=== PATIENT | female | born 1955 | race Caucasian/White ===

== ENCOUNTER → 2017-02-11 | Outpatient (CLI) | payer MEDICARE ==
[2017-02-11 12:17] LABS: Basophils % (A) 0 %; CH 24.5; CHCM 29.6; Eosinophils # (A) 0.1 k/uL (0-0.7); Eosinophils % (A) 2 %; HCT 34.7 % (34.0-46.0); HDW 2.99; HGB 10.6 gm/dL (11.4-16.0); Hypochromasia Marked; Luc # (Auto) 0.13; Luc % (Auto) 2; Lymphocytes # (A) 1.5 k/uL (1.0-4.8); Lymphocytes % (A) 21 %; MCH 25.4 pg (25.0-35.0); MCHC 30.5 g/dL (31.0-37.0); MCV 83.2 fL (80.0-100.0); Mean Platelet Volume 7.1; Monocytes # (A) 0.4 k/uL (0-1.0); Monocytes % (A) 5 %; Neutrophils # (A) 4.9 k/uL (1.3-7.7); Neutrophils % (A) 70 %; RBC 4.17 m/uL (3.80-5.40); RDW 15.5 % (11.5-15.5); WBC (Perox) 7.43
[2017-02-11 12:29] LABS: ALT 55 U/L (9-52); AST 70 U/L (14-36); Alkaline Phosphatase 158 U/L (38-126); Anion Gap 9 mmol/L; Blood Urea Nitrogen 15 mg/dL (7-17); Carbon Dioxide 31 mmol/L (22-30); Chloride 101 mmol/L (98-107); Cholesterol 97 mg/dL (<200); Glucose 87 mg/dL (74-99); HDL Cholesterol 40 mg/dL (40-60); Non-African American GFR(MDRD) >60 (>60 ml/min/1.73 sqM); Potassium 4.5 mmol/L (3.5-5.1); Sodium 141 mmol/L (137-145); Total Bilirubin 0.4 mg/dL (0.2-1.3); Total Protein 6.2 g/dL (6.3-8.2); Triglycerides 87 mg/dL (<150)
[2017-02-11 12:53] LABS: Large Platelets Present; Manual Review Performed
[2017-02-11 13:16] LABS: Hemoglobin A1C 5.8 % (4.2-6.1)
== END | disposition home or self-care (01) ==
LOC: LABWHC1 11:21
PROVIDERS: ATTEND Pain Medicine Pain Medicine
DX: Z00.00 Encounter for general adult medical examination without abnormal findings (principal); E11.65 Type 2 diabetes mellitus with hyperglycemia; K71.6 Toxic liver disease with hepatitis, not elsewhere classified
CPT/HCPCS: 36415; 80053; 80061; 83036; 84439; 84443; 85025

== ENCOUNTER → 2017-03-09 | Outpatient (CLI) | payer MEDICARE ==
[2017-03-09 12:03] LABS: % Iron Saturation 5.8 % (20-50)
== END | disposition home or self-care (01) ==
LOC: LABWHC1 08:59
PROVIDERS: ATTEND Family Medicine
DX: R74.8 Abnormal levels of other serum enzymes (principal); D64.9 Anemia, unspecified
CPT/HCPCS: 36415; 83540; 83550; 84075; 84450; 84460

== ENCOUNTER → 2017-03-23 | Outpatient (CLI) | payer MEDICARE ==
[2017-03-23 16:23] LABS: C Reactive Protein 39.1 mg/L (<10.0); Rheumatoid Factor, Qnt <9 IU/mL (<12)
[2017-03-24 07:17] LABS: ANA w/Reflex to Titer POSITIVE (NEGATIVE)
[2017-03-24 09:08] LABS: HLA B27 NEGATIVE; HLA B27 Comment SEEBELOW
== END ==
LOC: LABWHC1 15:32
PROVIDERS: ATTEND Pain Medicine Pain Medicine
DX: M35.9 Systemic involvement of connective tissue, unspecified (principal)
CPT/HCPCS: 36415; 85652; 86038; 86039; 86140; 86376; 86431; 86812

== ENCOUNTER → 2017-03-23 | Outpatient (CLI) | payer MEDICARE ==
--- NOTE | 2017-03-23 17:46 | US ---
EXAMINATION TYPE: US liver DATE OF EXAM: 03/23/2017 COMPARISON: CLINICAL HISTORY: R74.8 Elevated liver enzymes level. Bariatric surgery x 10 years ago. GB removed i n 1992. NPO EXAM MEASUREMENTS: Liver Length: 23.6 cm CBD: 0.8 cm CHD: 0.6 cm Right Kidney: 11.9 x 5.2 x 4.4 cm cm Pancreas: Tail obscured by overlying bowel gas. Echogenic. WNL as visualized. Liver: Echogenic. Enlarged. No prominent masses or lesions seen. Gallbladder: Surgically absent CBD: wnl CHD: wnl Right Kidney: multiple prominent echogenic lesions, largest seen in upper pole = 1.1 x 0.9 cm IMPRESSION: 1. Correlate for Fatty hepatic infiltration versus diffuse hepatocellular disease.
== END | disposition home or self-care (01) ==
LOC: RADUSWWP 15:50
PROVIDERS: ATTEND Family Medicine
DX: R74.8 Abnormal levels of other serum enzymes (principal)
CPT/HCPCS: 76705

== ENCOUNTER → 2017-03-29 | Outpatient (CLI) | payer MEDICARE ==
--- NOTE | 2017-03-30 09:49 | MM ---
Reason for exam: screening (asymptomatic). Last mammogram was performed 1 year and 2 months ago. History: Patient is postmenopausal. Benign core biopsy of the left breast, 1991. Took estrogen for 2 years. Physical Findings: A clinical breast exam by your physician is recommended on an annual basis and results should be correlated with mammographic findings. MG 3D Screening Mammo W/Cad Bilateral CC and MLO view(s) were taken. Prior study comparison: January 14, 2016, bilateral MG screening mammo w CAD. January 10, 2015, bilateral MG screening mammo w CAD. There are scattered fibroglandular densities. There is no discrete abnormality. No significant changes when compared with prior studies. ASSESSMENT: Negative, BI-RAD 1 RECOMMENDATION: Routine screening mammogram of both breasts in 1 year.
== END | disposition home or self-care (01) ==
LOC: RADMAMWWP 16:00
PROVIDERS: ATTEND Family Medicine
DX: Z12.31 Encounter for screening mammogram for malignant neoplasm of breast (principal)
CPT/HCPCS: 77063; G0202

== ENCOUNTER 2017-06-09 10:56 | Day surgery (SDC) | payer MEDICARE ==
[2017-06-07 11:39] VITALS: BMI 46.3
[~2017-06-09 10:56] MED LIST: LACTATED RINGERS 1,000 ML IV SCH
[2017-06-09] MEDS ORDERED: LIDOCAINE 1% 20 ML VIAL (10MG/ML) FOR IV START INTRADERMA ONE (11:12)
[2017-06-09] MEDS ORDERED: LACTATED RINGERS 1,000 ML IV ONE (11:12)
[2017-06-09 11:27] VITALS: TEMP 98
[2017-06-09] MEDS ORDERED: PROPOFOL 10 MG/ML 20 ML VIAL IV ONE (12:06)
[2017-06-09] MEDS ORDERED: LIDOCAINE 1% INJ 10MG/ML (20 ML MDV) ONE (12:06)
--- NOTE | 2017-06-09 13:02 | P.PCN ---
Date of Procedure: 06/09/17 Preoperative Diagnosis: Postoperative Diagnosis: Procedure(s) Performed: Procedure: 1. Esophagogastroduodenoscopy and biopsy. 2. Total colonoscopy. Preoperative diagnosis: Anemia and unexplained weight loss. Postoperative diagnosis: 1. S/P gastric bypass surgery. 2. Colonoscopy within normal limits. Preparation: HalfLytely prep. Sedation: Was provided by anesthesia. Brief clinical history: The patient is a 58-year-old female who is referred for this evaluation because of anemia consistent with iron deficiency. The patient had prior gastric bypass surgery. She had a prior colonoscopy with Dr. Rodgers more than 10 years ago. Procedure: With the patient on her left lateral decubitus position and after informed consent and adequate sedation I passed the Olympus GIF 160 video upper endoscope through the cricopharyngeus down the esophagus. The esophagus did not show any obvious erosions or ulcers. GE junction was at around 36 cm from the incisors and there was a small hiatal hernia then the endoscope was advanced into the gastric remnant. The patient had prior gastric bypass surgery. The endoscope was then passed into the small intestine. There were no marginal ulcers or other pathology in the gastric pouch. The small intestine was inspected for a good distance. No obvious pathology was noted. I obtained multiple biopsies from the small intestine in addition to biopsies from the gastric remnant and esophagus before the endoscope was withdrawn. I then proceeded with the colonoscopy. Perianal area did not show any fissures or fistulas. There were no masses felt on digital rectal examination. The Olympus PCFQ 180AL video colonoscope was used and was advanced to the cecum. No polyps, tumors or obvious diverticular disease was noted. The mucosa appeared healthy. I retroflexed the endoscope in the rectum before the endoscope was withdrawn. Low-grade internal hemorrhoids without definite bleeding. Disposition: The patient tolerated the procedure well and did not seem to have any immediate complications. Plan: We will await the biopsy results. It is possible that her anemia is nutritional related to her gastric bypass surgery, other etiology to be kept in mind.. Implants: Indications for Procedure: Operative Findings: Description of Procedure:
[2017-06-09] MEDS ORDERED: ONDANSETRON ODT 4 MG TAB PO STA (13:28)
[2017-06-09 13:53] VITALS: RESP 20
[2017-06-09 14:47] VITALS: BP 128/72; PULSE 96
--- NOTE | 2017-06-09 14:54 | XR ---
EXAMINATION TYPE: XR abdomen complete w decub DATE OF EXAM: 06/09/2017 COMPARISON: 04/03/2014 HISTORY: 61-year-old female rule out perforation, recent endoscopy with pain. TECHNIQUE: Supine, upright, and left side down lateral decubitus views of the abdomen are obtained. FINDINGS: Lung bases are clear. No evidence for free intraperitoneal air. Prominent air-filled small and large bowel loops with air extending distally into the rectum. Staple lines seen within the epigastric region and left mid abdomen suggest prior bowel surgery. Surgical cl ips in the right upper quadrant as well. IMPRESSION: Prominent air distended bowel loops throughout involving both small and large bowel. Findings could r eflect air introduced secondary to the patient's procedure or could represent ileus. No free air.
== END 2017-06-09 15:08 | disposition home or self-care (01) ==
LOC: ORWHC2ENDO 10:56
DX: D50.9 Iron deficiency anemia, unspecified (principal); K29.50 Unspecified chronic gastritis without bleeding; K21.0 Gastro-esophageal reflux disease with esophagitis; R63.4 Abnormal weight loss; J45.909 Unspecified asthma, uncomplicated; G47.33 Obstructive sleep apnea (adult) (pediatric); M79.7 Fibromyalgia; K64.8 Other hemorrhoids; G43.909 Migraine, unspecified, not intractable, without status migrainosus; Z98.84 Bariatric surgery status; K44.9 Diaphragmatic hernia without obstruction or gangrene; E07.9 Disorder of thyroid, unspecified; Z88.0 Allergy status to penicillin; Z79.84 Long term (current) use of oral hypoglycemic drugs; Z79.891 Long term (current) use of opiate analgesic; Z79.899 Other long term (current) drug therapy
CPT/HCPCS: 88305; 88342; 74020; 45378; 43239; J2001; J2704

== ENCOUNTER 2017-09-19 23:50 | Emergency (ER) | payer MEDICARE, OTHER ==
--- NOTE | 2017-09-20 | ED ---
Fall HPI - General Stated Complaint: Fall Time Seen by Provider: 09/19/17 23:50 Source: patient, EMS, RN notes reviewed, old records reviewed - History of Present Illness Initial Comments: This is a 61-year-old female history of bilateral knee surgery fibromyalgia and morbid obesity who apparently fell in the bathroom just prior to admission she hit either a door door jamb with the left side of her head she complains of pain to the back of her head no overt neck pain but she is complaining of severe pain to the left knee she states radiates from her left ankle up to her hip. She does have a history of sciatica and believes that got exacerbated. She denies any overt back pain at this time. Patient was given 100 g of fentanyl by paramedics in route to. She states the pain is still 10/10 severity. She does state because her fibromyalgia anywhere that I touch will hurt. She has a blurry vision loss of function to her upper or lower extremities just the severe pain. MD Complaint: fall - Related Data Home Medications Medication Instructions Recorded Confirmed Furosemide [Lasix] 40 mg PO DAILY 04/03/14 06/07/17 Levothyroxine Sodium [Synthroid] 75 mcg PO DAILY 04/03/14 06/07/17 Morphine Sulfate ER [Ms Contin] 30 mg PO BID 04/03/14 06/07/17 Venlafaxine HCl [Effexor] 75 mg PO BID 04/03/14 06/07/17 tiZANidine [Zanaflex] 4 mg PO TID PRN 04/03/14 06/07/17 Albuterol Sulfate [Ventolin HFA] 2 puff INHALATION DIRECTED PRN 07/24/14 Amitriptyline HCl [Elavil] 75 mg PO HS 06/07/17 06/07/17 Cyclobenzaprine [Flexeril] 10 mg PO BID 06/07/17 06/07/17 Gabapentin 800 mg PO TID 06/07/17 06/07/17 Hydrocodone/Acetaminophen [Vicodin 1 tab PO Q6HR 06/07/17 06/07/17 Hp 10-300 mg Tablet] Miralax(Dose Unknown) 1 applicate PO DAILY 06/07/17 06/07/17 Montelukast [Singulair] 10 mg PO HS 06/07/17 06/07/17 Omeprazole [PriLOSEC] 20 mg PO AC-BRKFST 06/07/17 06/07/17 Pilocarpine HCl [Salagen] 7.5 mg PO BID 06/07/17 06/07/17 metFORMIN HCL [Glucophage] 500 mg PO BID 06/07/17 06/07/17 Previous Rx's Medication Instructions Recorded Lactulose [Cephulac] 30 gm PO TID 30 Days cup 04/05/14 Allergies Allergy/AdvReac Type Severity Reaction Status Date / Time Penicillins Allergy Unknown Verified 09/20/17 00:00 Childhood Review of Systems ROS Statement: Those systems with pertinent positive or pertinent negative responses have been documented in the HPI. ROS Other: All systems not noted in ROS Statement are negative. Past Medical History Past Medical History: Asthma, Fibromyalgia, GERD/Reflux, Osteoarthritis (OA), Pneumonia, Rheumatoid Arthritis (RA), Sleep Apnea/CPAP/BIPAP, Thyroid Disorder Additional Past Medical History / Comment(s): NO LONGER HAS CPAP, ANEMIA, KIDNEY STONE, MIGRAINES, CHRONIC CONSTIPATION, hernia, tested positive for lupus , lesion on rt kidney, pt states not diabetic History of Any Multi-Drug Resistant Organisms: None Reported Past Surgical History: Bariatric Surgery, Breast Surgery, Section, Cholecystectomy, Hysterectomy, Joint Replacement, Orthopedic Surgery, Uterine Ablation Additional Past Surgical History / Comment(s): RT PARTIAL MASTECTOMY, LT WRIST HAS PLATE/SCREWS, venice KNEE REPLACEMENT, HEMORROIDECTOMY, ROEX-N-Y, hemorrhoidectomy, cystoscopy removal of kidney stone, arthroscopy left knee Past Anesthesia/Blood Transfusion Reactions: Previous Problems w/ Anesthesia Additional Past Anesthesia/Blood Transfusion Reaction / Comment(s): STATES HAD ISSUE POST OP R/T SLEEP APNEA WHERE O2 LEVEL WAS LOW, AND WAS IN ICU Smoking Status: Former smoker - Past Family History Mother Family Medical History: Cancer Additional Family Medical History / Comment(s): UTERINE General Exam - General Exam Comments Initial Comments: This is a well-developed well-nourished awake alert oriented 3 female Limitations: physical limitation General appearance: alert, anxious, in distress Head exam: Present: normocephalic, other (Small contusion over the left occipital scalp no step-off or crepitation.) Eye exam: Present: normal appearance, PERRL, EOMI. Absent: scleral icterus, conjunctival injection, periorbital swelling ENT exam: Present: normal exam, mucous membranes moist Neck exam: Present: normal inspection, other (C-collar is in place). Absent: lymphadenopathy Respiratory exam: Present: normal lung sounds bilaterally. Absent: respiratory distress, wheezes, rales, rhonchi, stridor Cardiovascular Exam: Present: regular rate, normal rhythm, normal heart sounds. Absent: systolic murmur, diastolic murmur, rubs, gallop, clicks GI/Abdominal exam: Present: soft, normal bowel sounds, other (Obese abdomen). Absent: distended, tenderness, guarding, rebound, rigid Rectal exam: Present: deferred Extremities exam: Present: tenderness, normal capillary refill, other (Tennis palpation of the left knee no obvious shortening or rotation. Some mild tenderness over left hip also over the left femur and left tib-fib. No ankle or foot tenderness on the left. No other extremity injury noted.) Course Vital Signs 09/19/17 09/20/17 09/20/17 23:51 00:56 01:38 Temperature 97.5 F L Pulse Rate 95 87 89 Respiratory 22 18 20 Rate Blood Pressure 114/59 132/67 O2 Sat by Pulse 100 100 100 Oximetry 09/20/17 09/20/17 09/20/17 01:46 01:51 01:56 Temperature Pulse Rate 92 88 86 Respiratory 20 17 18 Rate Blood Pressure 142/66 147/67 156/67 O2 Sat by Pulse 99 100 100 Oximetry 09/20/17 09/20/17 02:01 02:06 Temperature Pulse Rate 93 93 Respiratory 20 20 Rate Blood Pressure 147/71 140/68 O2 Sat by Pulse 100 100 Oximetry - Reevaluation(s) Reevaluation #1: 09/20/17 01:34 I did discuss the case with Dr. Young who did recommend transferred to [facility] to the patient's original surgeon. Patient is in agreement with this after discussion with her and her family. The patient will require stabilization of the fracture she is 89 much pain relief thus far after fentanyl and IV Dilaudid. He does appear in the lateral film to demonstrate posterior displacement of the distal fragment of the femur. I will attempt to realign this with IV sedation. The lower sternal he will then be splinted. Reevaluation #2: 09/20/17 03:14 The patient initially was confused as to which hospital she was operated and originally for her knee surgery. I did contact her surgeon Dr. Adria Hightower and did discuss this with him initially the patient was be transferred to [facility] foot was subsequently transferred to [facility]. I did discuss this with her orthopedist on several occasions also did discuss this with Dr. Weiss at [facility]. The patient will be transferred by EMS. I did discuss this with the patient and her . Procedures - Orthopedic Splinting/Casting Injury #1 Side: left Lower Extremity Injury Location: long leg, knee Lower Extremity Immobilizer: posterior splint Additional Comments: Anterior and posterior long leg splint 5 x 30 orthopedic casting fiberglass. It was good neurovascular exam afterwards. Capillary refill less than 2 seconds. No neuro deficits. - Procedural Sedation Procedural Sedation Start Time: 01:47 ASA Class: III Time of Last PO Intake: 20:00 IV Propofol Dose (mgs): 140 Complications: none Patient Tolerated Procedure: well Medical Decision Making - Medical Decision Making The patient was transferred to [facility] she is awake alert oriented 3. - Lab Data Result diagrams: 09/19/17 23:58 09/19/17 23:58 Lab Results 09/19/17 09/19/17 09/19/17 Range/Units 23:58 23:58 23:58 WBC 7.0 (3.8-10.6) k/uL RBC 4.04 (3.80-5.40) m/uL Hgb 8.3 L (11.4-16.0) gm/dL Hct 29.5 L (34.0-46.0) % MCV 73.2 L (80.0-100.0) fL MCH 20.5 L (25.0-35.0) pg MCHC 28.1 L (31.0-37.0) g/dL RDW 19.7 H (11.5-15.5) % Plt Count 279 (150-450) k/uL Neutrophils % 70 % Lymphocytes % 21 % Monocytes % 5 % Eosinophils % 3 % Basophils % 0 % Neutrophils # 4.9 (1.3-7.7) k/uL Lymphocytes # 1.5 (1.0-4.8) k/uL Monocytes # 0.4 (0-1.0) k/uL Eosinophils # 0.2 (0-0.7) k/uL Basophils # 0.0 (0-0.2) k/uL Hypochromasia Marked Anisocytosis Slight Microcytosis Moderate PT 10.0 (9.0-12.0) sec INR 1.0 (<1.2) APTT 26.7 (22.0-30.0) sec Sodium 135 L (137-145) mmol/L Potassium 4.2 (3.5-5.1) mmol/L Chloride 97 L (98-107) mmol/L Carbon Dioxide 31 H (22-30) mmol/L Anion Gap 7 mmol/L BUN 15 (7-17) mg/dL Creatinine 0.90 (0.52-1.04) mg/dL Est GFR (MDRD) Af Amer >60 (>60 ml/min/1.73 sqM) Est GFR (MDRD) Non-Af >60 (>60 ml/min/1.73 sqM) Glucose 104 H (74-99) mg/dL Calcium 9.0 (8.4-10.2) mg/dL - Radiology Data Radiology results: report reviewed (I did review all the imaging and reports there is some improvement in the position of the distal femur and fibula. There were fractures noted at both sites as stated above.), image reviewed Disposition Clinical Impression: Fall, Fracture of distal end of left femur, Fracture of proximal end of left fibula Disposition: OTHER INSTITUTION NOT DEFINED Condition: Stable Referrals: Katelyn Rai MD [Primary Care Provider] - 1-2 days - Out of Hospital Transfer - Req. Specs Out of Hospital Transfer - Requested Specifics: Other Emergency Center
--- NOTE | 2017-09-20 00:36 | CT ---
EXAMINATION TYPE: CT brain shaun webster DATE OF EXAM: 09/20/2017 COMPARISON: NONE HISTORY: fall. evaluate for trauma CT DLP: head-1098.80, body-566.40 mGycm Automated exposure control for dose reduction was used. TECHNIQUE: CT scan of the head and cervical spine are performed without contrast. FINDINGS: Ventricles have normal size. There is no mass effect nor midline shift. There is no sign of intracranial hemorrhage. The calvarium is intact. There is some mild mucosal thickening in the eth moid sinuses. Cervical vertebra have normal alignment. There is some hypertrophic spurring at C5-6 and C6-7. Engine Tester ior elements are intact. Facet joints are intact. The skull base is intact. There is no sign of a fra cture. IMPRESSION: Negative CT scan of the brain. Mild ethmoid sinusitis. Mild spondylosis in the lower cervical spine. No fracture.
--- NOTE | 2017-09-20 01:04 | XR ---
EXAMINATION TYPE: XR pelvis AP view DATE OF EXAM: 09/20/2017 COMPARISON: NONE HISTORY: Fall. Pain. TECHNIQUE: Single view FINDINGS: Pelvic ring appears intact. Proximal femurs are intact. I see no fracture. IMPRESSION: No acute abnormality of the pelvis.
--- NOTE | 2017-09-20 01:05 | XR ---
EXAMINATION TYPE: XR femur LT DATE OF EXAM: 09/20/2017 COMPARISON: NONE HISTORY: Fall with pain TECHNIQUE: 4 views FINDINGS: There is a supracondylar fracture of the distal femur with 100% offset of the fragments. Th ere is no dislocation. There is a left knee prosthesis. The proximal femur appears intact. IMPRESSION: Comminuted supracondylar fracture of the distal femur.
--- NOTE | 2017-09-20 01:06 | XR ---
EXAMINATION TYPE: XR knee limited LT DATE OF EXAM: 09/20/2017 COMPARISON: NONE HISTORY: Fall with pain TECHNIQUE: 2 views FINDINGS: There is comminuted supracondylar fracture of the distal femur. There is 100% lateral displ acement of the distal major fragment. There is nondisplaced comminuted fracture of the proximal shaft of the fibula. There is no dislocation. IMPRESSION: Fractures of the distal femur and proximal fibula.
--- NOTE | 2017-09-20 01:08 | XR ---
EXAMINATION TYPE: XR chest 1V DATE OF EXAM: 09/20/2017 COMPARISON: 10/02/2014 HISTORY: Fall. Pain. TECHNIQUE: Single frontal view of the chest is obtained. FINDINGS: There is some widening of the mediastinum. Exam is limited by positioning. There is no hea rt failure. There is no sign of pleural effusion. IMPRESSION: Widened mediastinum. A PA upright view is recommended for further evaluation if clinical ly indicated. No heart failure.
[2017-09-20] MEDS ORDERED: HYDROmorphone 2 MG/ML 1 ML SYRINGE IVP STA ×2 (01:10→03:04)
[2017-09-20] MEDS ORDERED: PROPOFOL 10 MG/ML 20 ML VIAL IV ONE (01:28)
--- NOTE | 2017-09-20 01:33 | XR ---
EXAMINATION TYPE: XR tibia fibula LT DATE OF EXAM: 09/20/2017 COMPARISON: NONE HISTORY: Fall and pain TECHNIQUE: 4 views FINDINGS: There is nondisplaced comminuted fracture proximal shaft of the fibula. There is acute comm inuted supracondylar fracture distal femur. The ankle joint appears intact. There are plantar and Ach illes calcaneal spurs. IMPRESSION: Fractures of the fibula and distal femur. No dislocation. Left knee prosthesis.
[2017-09-20 01:34] LABS: Anisocytosis Slight; Basophils % (A) 0 %; Eosinophils # (A) 0.2 k/uL (0-0.7); Eosinophils % (A) 3 %; HCT 29.5 % (34.0-46.0); HGB 8.3 gm/dL (11.4-16.0); Hypochromasia Marked; Lymphocytes # (A) 1.5 k/uL (1.0-4.8); Lymphocytes % (A) 21 %; MCH 20.5 pg (25.0-35.0); MCHC 28.1 g/dL (31.0-37.0); MCV 73.2 fL (80.0-100.0); Mean Platelet Volume 7.7; Microcytosis Moderate; Monocytes # (A) 0.4 k/uL (0-1.0); Monocytes % (A) 5 %; Neutrophils # (A) 4.9 k/uL (1.3-7.7); Neutrophils % (A) 70 %; Platelet Count 279 k/uL (150-450); RBC 4.04 m/uL (3.80-5.40); RDW 19.7 % (11.5-15.5)
[2017-09-20 01:42] LABS: Partial Thromboplastin Time 26.7 sec (22.0-30.0)
[2017-09-20 01:43] LABS: Anion Gap 7 mmol/L; Blood Urea Nitrogen 15 mg/dL (7-17); Carbon Dioxide 31 mmol/L (22-30); Chloride 97 mmol/L (98-107); Glucose 104 mg/dL (74-99); Potassium 4.2 mmol/L (3.5-5.1); Sodium 135 mmol/L (137-145)
[2017-09-20] MEDS ORDERED: HYDROmorphone 0.5 MG/0.5 ML SYRINGE IVP STA (02:04)
[2017-09-20] MEDS ORDERED: HYDROmorphone 1 MG/ML 1 ML SYRINGE IVP STA ×2 (02:13→03:02)
--- NOTE | 2017-09-20 02:26 | XR ---
EXAMINATION TYPE: XR knee limited LT DATE OF EXAM: 09/20/2017 COMPARISON: Today HISTORY: Postreduction TECHNIQUE: 2 views FINDINGS: There is supracondylar fracture of the distal femur. There is comminution with 2.5 cm posterior disp lacement of the distal fragment. There is normal alignment. There is comminuted fracture proximal sha ft of the fibula. There is slightly improved position of the femoral fragments compared to previous e xam. IMPRESSION: Improved position compared to previous exam.
[2017-09-20 03:32] VITALS: BP 132/62; PULSE 98; RESP 22; TEMP 98.5
--- NOTE | 2017-09-21 03:51 | CDI ---
Documentation Clarification OP Dear Patrick FLORES MD As reviewed the chart, Procedure stop time is missing, Please provide addendum for procedure stop time to code the moderate sedation. Thank you, Chrissy Francisco Traffic Control Supervisor If you have any question, Please contact plant culture manager at [phone] [facility]
--- NOTE | 2017-10-28 08:14 | ED ---
Medical Decision Making - Medical Decision Making Procedural sedation stop time was 02:10 am. - Lab Data Result diagrams: 09/19/17 23:58 09/19/17 23:58 Lab Results 09/19/17 09/19/17 09/19/17 Range/Units 23:58 23:58 23:58 WBC 7.0 (3.8-10.6) k/uL RBC 4.04 (3.80-5.40) m/uL Hgb 8.3 L (11.4-16.0) gm/dL Hct 29.5 L (34.0-46.0) % MCV 73.2 L (80.0-100.0) fL MCH 20.5 L (25.0-35.0) pg MCHC 28.1 L (31.0-37.0) g/dL RDW 19.7 H (11.5-15.5) % Plt Count 279 (150-450) k/uL Neutrophils % 70 % Lymphocytes % 21 % Monocytes % 5 % Eosinophils % 3 % Basophils % 0 % Neutrophils # 4.9 (1.3-7.7) k/uL Lymphocytes # 1.5 (1.0-4.8) k/uL Monocytes # 0.4 (0-1.0) k/uL Eosinophils # 0.2 (0-0.7) k/uL Basophils # 0.0 (0-0.2) k/uL Hypochromasia Marked Anisocytosis Slight Microcytosis Moderate PT 10.0 (9.0-12.0) sec INR 1.0 (<1.2) APTT 26.7 (22.0-30.0) sec Sodium 135 L (137-145) mmol/L Potassium 4.2 (3.5-5.1) mmol/L Chloride 97 L (98-107) mmol/L Carbon Dioxide 31 H (22-30) mmol/L Anion Gap 7 mmol/L BUN 15 (7-17) mg/dL Creatinine 0.90 (0.52-1.04) mg/dL Est GFR (MDRD) Af Amer >60 (>60 ml/min/1.73 sqM) Est GFR (MDRD) Non-Af >60 (>60 ml/min/1.73 sqM) Glucose 104 H (74-99) mg/dL Calcium 9.0 (8.4-10.2) mg/dL Disposition Clinical Impression: Fall, Fracture of distal end of left femur, Fracture of proximal end of left fibula Disposition: TRANSFER TO SHORT TERM HOSP Condition: Stable Referrals: Katelyn Rai MD [Primary Care Provider] - 1-2 days
== END 2017-09-20 03:56 | disposition short-term general hospital (02) ==
LOC: EC 23:50
DX: S72.402A Unspecified fracture of lower end of left femur, initial encounter for closed fracture (principal); S82.832A Other fracture of upper and lower end of left fibula, initial encounter for closed fracture; K21.9 Gastro-esophageal reflux disease without esophagitis; M79.7 Fibromyalgia; M19.90 Unspecified osteoarthritis, unspecified site; M06.9 Rheumatoid arthritis, unspecified; G47.30 Sleep apnea, unspecified; Z99.89 Dependence on other enabling machines and devices; E07.9 Disorder of thyroid, unspecified; E66.01 Morbid (severe) obesity due to excess calories; Z68.42 Body mass index [BMI] 45.0-49.9, adult; Z79.84 Long term (current) use of oral hypoglycemic drugs; Z79.891 Long term (current) use of opiate analgesic; Z79.899 Other long term (current) drug therapy; Z88.0 Allergy status to penicillin; Z98.890 Other specified postprocedural states; W01.10XA Fall on same level from slipping, tripping and stumbling with subsequent striking against unspecified object, initial encounter; Y92.002 Bathroom of unspecified non-institutional (private) residence as the place of occurrence of the external cause
CPT/HCPCS: 99285; 29505; 99152; 36415; 80048; 85025; 85610; 85730; 71010; 72170; 73552; 73590; 73560; 72125; 70450; J1170 ×2; J2704

== ENCOUNTER → 2017-11-17 | Outpatient (CLI) | payer MEDICARE, OTHER ==
[2017-11-17 17:22] LABS: ALT 19 U/L (9-52); AST 25 U/L (14-36); Alkaline Phosphatase 129 U/L (38-126); Blood Urea Nitrogen 17 mg/dL (7-17)
== END | disposition home or self-care (01) ==
LOC: LABWHC1 15:51
PROVIDERS: ATTEND Pain Medicine Pain Medicine
DX: K71.9 Toxic liver disease, unspecified (principal); N14.2 Nephropathy induced by unspecified drug, medicament or biological substance
CPT/HCPCS: 36415; 82565; 84075; 84450; 84460; 84520

== ENCOUNTER → 2017-11-22 | Outpatient (CLI) | payer MEDICARE, OTHER ==
--- NOTE | 2017-11-22 08:54 | BD ---
EXAMINATION TYPE: MG DEXA axial skeleton. DATE OF EXAM: 11/22/2017 COMPARISON: DEXA bone scan June 13, 2015 CLINICAL HISTORY: screening osteoporosis, postmenopausal female with rheumatoid arthritis Height: 5'4 Weight: 272 FRAX RISK QUESTIONS: Alcohol (3 or more units per day): no Family History (Parent hip fracture): no Glucocorticoids (More than 3mos): no (Ex: prednisone, prednisolone, methylprednisolone, dexamethasone, and hydrocortisone). History of Fracture in Adulthood: yes Secondary Osteoporosis: 1. Type 1 Diabetes: no 2. Hyperthyroidism: no 3. Menopause before 45: yes 4. Malnutrition: yes 5. Chronic liver disease: no Rheumatoid Arthritis: yes Current Tobacco Use: no RISK FACTORS HISTORY OF: History of Wrist Fracture: left When: 2009 Surgery to Wrist (left): When: 2009 Family History of Osteoporosis: yes Active: no Diet low in dairy products/other sources of calcium: yes Postmenopausal woman: yes Frequent falls: yes Poor Health: yes MEDICATIONS: Thyroid Medications: Which medication: Levothyroxine How Lon years Additional Medications: Lasix, depression, morphine, Vicodin, flexeril, indigestion, Additional History: bariatric surgery, total knee venice, EXAM MEASUREMENTS: Bone mineral densitometry was performed using the [employer]ives[employer] System. Bone mineral density as measured about the Lumbar spine is: ----- L1-L4(G/cm2): 1.114 T Score Values are as follows: ----- L2: -0.8 ----- L3: -0.3 ----- L4: 0.5 ----- L1-L-4:-0.6 Bone mineral density has: Decreased -9.4% since study of: 06/13/2015 Bone mineral density about the R hip (g/cm2): 0.852 Bone mineral density about the L hip (g/cm2): 0.870 T Score values are as follows: -----R Neck: -1.3 -----L Neck: -1.2 -----R Total: -1.4 -----L Total: -1.6 Bone mineral density has: Decreased 15.8% left hip since study of: 06/13/2015 IMPRESSION: Osteopenia (T Score between -2.5 and -1 as noted by T score values redemonstrated in the right hip. B one density noted decreased or diminished from prior. There remains slightly increased risk of fractu re and the patient may be considered for treatment. Re-Screen 2-5 years. NOTE: T-SCORE=SD OF THE YOUNG ADULT MEAN.
== END | disposition home or self-care (01) ==
LOC: RADBDWWP 07:46
PROVIDERS: ATTEND Family Medicine
DX: M85.851 Other specified disorders of bone density and structure, right thigh (principal)
CPT/HCPCS: 77080

== ENCOUNTER → 2017-11-23 | Outpatient (CLI) | payer MEDICARE, OTHER ==
--- NOTE | 2017-11-23 08:55 | CT ---
EXAMINATION TYPE: CT abdomen wo/w con DATE OF EXAM: 11/23/2017 HISTORY: Abnormal levels of serum enzymes CT DLP: 2252mGycm Automated Exposure Control for Dose Reduction was Utilized. CONTRAST: CT scan of the abdomen is performed without oral and without and with IV Contrast, patient injected w ith 100 ml mL of Omnipaque 300. COMPARISON: CT abdomen and pelvis April 03, 2014 FINDINGS: LUNG BASES: No significant abnormality is appreciated. LIVER/GB: Noncontrast images show liver due to appear diffusely hypodense consistent with fatty infil tration. Cholecystectomy clips are redemonstrated. No suspicious intrahepatic solid or cystic mass is identified. No biliary ductal dilatation is seen. PANCREAS: There is fairly moderate fat replaced atrophy of pancreas redemonstrated. SPLEEN: Spleen is mildly enlarged at 13.1 cm on axial image 20 grafts mildly more prominent versus pr ior. ADRENALS: No significant abnormality is seen. KIDNEYS: There are 3-4 calculi scattered throughout right kidney with 15 mm upper pole calculus noted coronal image 91 series 9. There are 3-4 smaller calculi scattered throughout left kidney measuring 5 mm or smaller in size. There is symmetric cortical medullary uptake and excretion from both kidneys without evidence of concerning solid or cystic renal mass or hydronephrosis bilaterally. There is monahan bcentimeter low dense lesion anteriorly upper pole level left kidney seen image 31 series 11 is too s mall to further characterize but presumed benign. BOWEL: Surgical sutures from Jett fundoplication surgery are redemonstrated at level of diaphragmat ic hiatus. There is new or recurrent small hiatal hernia proximal to sutures versus focal dilatation of distal esophagus, former is favored. There is some focal small bowel prominence there are surgical sutures left upper to mid abdomen axial image 33. There is some prominence of fecal material through out the colon. LYMPH NODES: No greater than 1cm abdominal lymph nodes. Prominent but scattered subcentimeter mesente kari lymph nodes are noted. OSSEOUS STRUCTURES: There is advanced multilevel spurring in the thoracolumbar spine. There is exagge rated lumbar lordosis and straightening of the spine at thoracic levels. OTHER: Prior ventral wall hernia lower abdomen is felt outside field of view on today's study. IMPRESSION: 1. Marked fatty infiltration of liver. No worrisome intrahepatic mass or ductal dilatation. 2. Redemonstration of bilateral nephrolithiasis without hydronephrosis or obstructing stones. 3. Recurrent small hiatal hernia at level of Jett fundoplication surgery. Overall nonobstructive eugenio wel gas pattern. Mild to moderate diffuse colonic fecal stasis is felt present.
== END | disposition home or self-care (01) ==
LOC: RADCTMAIN 07:11
PROVIDERS: ATTEND Family Medicine
DX: K76.0 Fatty (change of) liver, not elsewhere classified (principal); N20.0 Calculus of kidney; K44.9 Diaphragmatic hernia without obstruction or gangrene; Z98.890 Other specified postprocedural states
CPT/HCPCS: 74170; Q9967

== ENCOUNTER 2018-06-13 21:59 | Inpatient (IN) | payer MEDICARE, OTHER ==
[2018-06-13] MEDS ORDERED: SODIUM CHLORIDE 0.9% 500 ML IV STA (22:28)
[2018-06-13 22:30] LABS: Glucose,Whole Blood 138 mg/dL (75-99)
[2018-06-13] MEDS ORDERED: SODIUM CHLORIDE 0.9% 500 ML IV ONE (22:40)
--- NOTE | 2018-06-13 22:44 | ED ---
General Adult HPI - General Chief complaint: Neuro Symptoms/Deficit Stated complaint: Poss stroke symtoms Time Seen by Provider: 06/13/18 22:18 Source: patient, family, RN notes reviewed, old records reviewed Mode of arrival: wheelchair Limitations: no limitations - History of Present Illness Initial comments: 62-year-old female presents for evaluation of confusion and slurred speech. Patient's symptoms began yesterday evening which was approximately 24 hours ago. According to her family she does have some confusion which is secondary to medication she is on from time to time. This is not atypical for the patient however she her symptoms have lasted longer than they normally would. Patient did complain of some abdominal pain and has had several episodes of nausea and vomiting. No history of diarrhea. No history of fever or chills. Patient is unable to contribute the the history secondary to confusion and altered mental status. - Related Data Home Medications Medication Instructions Recorded Confirmed Furosemide [Lasix] 40 mg PO DAILY 04/03/14 06/13/18 Levothyroxine Sodium [Synthroid] 75 mcg PO DAILY 04/03/14 06/13/18 Morphine Sulfate ER [Ms Contin] 30 mg PO BID 04/03/14 06/13/18 Venlafaxine HCl [Effexor] 75 mg PO BID 04/03/14 06/13/18 tiZANidine [Zanaflex] 4 mg PO TID PRN 04/03/14 06/13/18 Albuterol Sulfate [Ventolin HFA] 2 puff INHALATION RT-Q6H PRN 07/24/14 06/13/18 Amitriptyline HCl [Elavil] 75 mg PO HS 06/07/17 06/13/18 Cyclobenzaprine [Flexeril] 10 mg PO BID 06/07/17 06/13/18 Gabapentin 800 mg PO TID 06/07/17 06/13/18 Montelukast [Singulair] 10 mg PO HS 06/07/17 06/13/18 Pilocarpine HCl [Salagen] 7.5 mg PO BID 06/07/17 06/13/18 metFORMIN HCL [Glucophage] 500 mg PO BID 06/07/17 06/13/18 Cyanocobalamin [Vitamin B-12 1,000 mcg SQ Q30D 06/13/18 06/13/18 Injection] Fluticasone Nasal [place] [Flonase 2 spr EA NOSTRIL DAILY 06/13/18 06/13/18 Nasal [place]] HYDROcodone/APAP 10-325MG [[place] 1 tab PO Q6HR PRN 06/13/18 06/13/18 10-325] Nystatin 100,000 Unit/gm Powd 1 applic TOPICAL BID PRN 06/13/18 06/13/18 [Mycostatin Powder] hydrOXYzine PAMOATE [Vistaril] 25 mg PO TID 06/13/18 06/13/18 Allergies Allergy/AdvReac Type Severity Reaction Status Date / Time Penicillins Allergy Unknown Verified 06/13/18 22:52 Childhood Review of Systems ROS Statement: Those systems with pertinent positive or pertinent negative responses have been documented in the HPI. ROS Other: All systems not noted in ROS Statement are negative. Past Medical History Past Medical History: Asthma, Fibromyalgia, GERD/Reflux, Osteoarthritis (OA), Pneumonia, Rheumatoid Arthritis (RA), Sleep Apnea/CPAP/BIPAP, Thyroid Disorder Additional Past Medical History / Comment(s): NO LONGER HAS CPAP, ANEMIA, KIDNEY STONE, MIGRAINES, CHRONIC CONSTIPATION, hernia, tested positive for lupus , lesion on rt kidney, pt states not diabetic History of Any Multi-Drug Resistant Organisms: None Reported Past Surgical History: Bariatric Surgery, Breast Surgery, Section, Cholecystectomy, Hysterectomy, Joint Replacement, Orthopedic Surgery, Uterine Ablation Additional Past Surgical History / Comment(s): RT PARTIAL MASTECTOMY, LT WRIST HAS PLATE/SCREWS, venice KNEE REPLACEMENT, HEMORROIDECTOMY, ROEX-N-Y, hemorrhoidectomy, cystoscopy removal of kidney stone, arthroscopy left knee Past Anesthesia/Blood Transfusion Reactions: Previous Problems w/ Anesthesia Additional Past Anesthesia/Blood Transfusion Reaction / Comment(s): STATES HAD ISSUE POST OP R/T SLEEP APNEA WHERE O2 LEVEL WAS LOW, AND WAS IN ICU Past Psychological History: Depression Smoking Status: Former smoker Past Alcohol Use History: None Reported Past Drug Use History: None Reported - Past Family History Mother Family Medical History: Cancer Additional Family Medical History / Comment(s): UTERINE General Exam Limitations: no limitations General appearance: in no apparent distress, lethargic Head exam: Present: atraumatic, normocephalic Eye exam: Present: normal appearance, PERRL, EOMI ENT exam: Present: mucous membranes dry Neck exam: Present: normal inspection. Absent: tenderness, meningismus Respiratory exam: Present: normal lung sounds bilaterally. Absent: respiratory distress, wheezes Cardiovascular Exam: Present: normal rhythm, tachycardia GI/Abdominal exam: Present: soft, distended, tenderness (Mild right upper quadrant tenderness, right flank). Absent: guarding, rebound, rigid Extremities exam: Present: normal inspection, normal capillary refill Neurological exam: Present: alert. Absent: oriented X3, motor sensory deficit Skin exam: Present: warm, dry, intact. Absent: cyanosis, diaphoretic Course Vital Signs 06/13/18 06/14/18 22:08 00:01 Temperature 98.2 F Pulse Rate 113 H 104 H Respiratory 18 18 Rate Blood Pressure 94/59 163/73 O2 Sat by Pulse 93 L 100 Oximetry EKG Findings - EKG Comments: EKG Findings:: EKG: Sinus tachycardia with occasional PVC, poor baseline secondary to tremor artifact, rate of 118, MA interval 140, QRS duration 90, QTC 470 Medical Decision Making - Medical Decision Making 62-year-old female presenting with confusion and slurred speech. Her neurologic exam is nonfocal. Workup in the emergency department reveals elevated white blood cell count at 23,000 which is predominantly neutrophils. Hemoglobin 10.1, creatinine of 1.5 which is elevated above baseline of 0.9. Head CT is obtained which is negative for any acute intracranial pathology. Chest x-ray is obtained negative for focal pneumonia or acute cardiopulmonary disease. Laboratory studies also reveal mildly elevated liver enzymes and hyperbilirubinemia at 1.5. Lactic acid is 3.0. Urinalysis reveals occasional bacteria and 27 white blood cells. Urine culture and blood culture are pending. CT of the abdomen is obtained without contrast secondary to elevated serum creatinine. This is obtained due to right upper quadrant pain and right flank pain. This shows right-sided hydronephrosis with perinephric edema and a 12 mm obstructing renal calculus. Case is discussed with urology on-call, Dr. Velasco, patient will be kept nothing by mouth for intervention in the morning. Patient admitted to internal medicine with urology on consult. Recommends continued IV antibiotics. Condition initially given ceftriaxone and Flagyl for presumed intra-abdominal source. She will be continued on Levaquin. - Lab Data Result diagrams: 06/13/18 22:40 06/13/18 22:40 Lab Results 06/13/18 06/13/18 06/13/18 Range/Units 22:19 22:40 22:40 WBC 23.1 H (3.8-10.6) k/uL RBC 4.56 (3.80-5.40) m/uL Hgb 10.1 L (11.4-16.0) gm/dL Hct 34.3 (34.0-46.0) % MCV 75.2 L (80.0-100.0) fL MCH 22.1 L (25.0-35.0) pg MCHC 29.3 L (31.0-37.0) g/dL RDW 18.1 H (11.5-15.5) % Plt Count 281 (150-450) k/uL Neutrophils % 93 % Lymphocytes % 3 % Monocytes % 3 % Eosinophils % 0 % Basophils % 0 % Neutrophils # 21.5 H (1.3-7.7) k/uL Lymphocytes # 0.6 L (1.0-4.8) k/uL Monocytes # 0.8 (0-1.0) k/uL Eosinophils # 0.0 (0-0.7) k/uL Basophils # 0.0 (0-0.2) k/uL Hypochromasia Marked Anisocytosis Slight Microcytosis Moderate PT (9.0-12.0) sec INR (<1.2) APTT (22.0-30.0) sec VBG pH (7.31-7.41) VBG pCO2 (37-51) mmHg VBG HCO3 (24-28) mmol/L Sodium (137-145) mmol/L Potassium (3.5-5.1) mmol/L Chloride (98-107) mmol/L Carbon Dioxide (22-30) mmol/L Anion Gap mmol/L BUN (7-17) mg/dL Creatinine (0.52-1.04) mg/dL Est GFR (CKD-EPI)AfAm (>60 ml/min/1.73 sqM) Est GFR (CKD-EPI)NonAf (>60 ml/min/1.73 sqM) Glucose (74-99) mg/dL POC Glucose (mg/dL) 138 H (75-99) mg/dL POC Glu [employer] ID Nitin, Shanel Plasma Lactic Acid Rober[place] (0.7-2.0) mmol/L Calcium (8.4-10.2) mg/dL Total Bilirubin (0.2-1.3) mg/dL AST (14-36) U/L ALT (9-52) U/L Alkaline Phosphatase (38-126) U/L Total Creatine Kinase 153 H (30-135) U/L CK-MB (CK-2) 0.7 (0.0-2.4) ng/mL CK-MB (CK-2) Rel Index 0.5 Troponin I 0.024 (0.000-0.034) ng/mL Total Protein (6.3-8.2) g/dL Albumin (3.5-5.0) g/dL Urine Color Urine Appearance (Clear) Urine pH (5.0-8.0) Ur Specific [place] (1.001-1.035) Urine Protein (Negative) Urine Glucose (UA) (Negative) Urine Ketones (Negative) Urine Blood (Negative) Urine Nitrite (Negative) Urine Bilirubin (Negative) Urine Urobilinogen (<2.0) mg/dL Ur Leukocyte Esterase (Negative) Urine RBC (0-5) /hpf Urine WBC (0-5) /hpf Urine Bacteria (None) /hpf Urine Mucus (None) /hpf Urine Opiates Screen (NotDetected) Ur Oxycodone Screen (NotDetected) Urine Methadone Screen (NotDetected) Ur Propoxyphene Screen (NotDetected) Ur Barbiturates Screen (NotDetected) U Tricyclic Antidepress (NotDetected) Ur Phencyclidine Scrn (NotDetected) Ur Amphetamines Screen (NotDetected) U Methamphetamines Scrn (NotDetected) U Benzodiazepines Scrn (NotDetected) Urine Cocaine Screen (NotDetected) U Marijuana (THC) Screen (NotDetected) 06/13/18 06/13/18 06/13/18 Range/Units 22:40 22:40 22:40 WBC (3.8-10.6) k/uL RBC (3.80-5.40) m/uL Hgb (11.4-16.0) gm/dL Hct (34.0-46.0) % MCV (80.0-100.0) fL MCH (25.0-35.0) pg MCHC (31.0-37.0) g/dL RDW (11.5-15.5) % Plt Count (150-450) k/uL Neutrophils % % Lymphocytes % % Monocytes % % Eosinophils % % Basophils % % Neutrophils # (1.3-7.7) k/uL Lymphocytes # (1.0-4.8) k/uL Monocytes # (0-1.0) k/uL Eosinophils # (0-0.7) k/uL Basophils # (0-0.2) k/uL Hypochromasia Anisocytosis Microcytosis PT 12.3 H (9.0-12.0) sec INR 1.3 H (<1.2) APTT 30.0 (22.0-30.0) sec VBG pH (7.31-7.41) VBG pCO2 (37-51) mmHg VBG HCO3 (24-28) mmol/L Sodium 135 L (137-145) mmol/L Potassium 4.1 (3.5-5.1) mmol/L Chloride 99 (98-107) mmol/L Carbon Dioxide 27 (22-30) mmol/L Anion Gap 9 mmol/L BUN 27 H (7-17) mg/dL Creatinine 1.50 H (0.52-1.04) mg/dL Est GFR (CKD-EPI)AfAm 43 (>60 ml/min/1.73 sqM) Est GFR (CKD-EPI)NonAf 37 (>60 ml/min/1.73 sqM) Glucose 147 H (74-99) mg/dL POC Glucose (mg/dL) (75-99) mg/dL POC [employer] ID Plasma Lactic Acid [place] 3.0 H* (0.7-2.0) mmol/L Calcium 8.5 (8.4-10.2) mg/dL Total Bilirubin 1.5 H (0.2-1.3) mg/dL AST 149 H (14-36) U/L ALT 74 H (9-52) U/L Alkaline Phosphatase 169 H (38-126) U/L Total Creatine Kinase (30-135) U/L CK-MB (CK-2) (0.0-2.4) ng/mL CK-MB (CK-2) Rel Index Troponin I (0.000-0.034) ng/mL Total Protein 5.7 L (6.3-8.2) g/dL Albumin 2.9 L (3.5-5.0) g/dL Urine Color Urine Appearance (Clear) Urine pH (5.0-8.0) Ur Specific [place] (1.001-1.035) Urine Protein (Negative) Urine Glucose (UA) (Negative) Urine Ketones (Negative) Urine Blood (Negative) Urine Nitrite (Negative) Urine Bilirubin (Negative) Urine Urobilinogen (<2.0) mg/dL Ur Leukocyte Esterase (Negative) Urine RBC (0-5) /hpf Urine WBC (0-5) /hpf Urine Bacteria (None) /hpf Urine Mucus (None) /hpf Urine Opiates Screen (NotDetected) Ur Oxycodone Screen (NotDetected) Urine Methadone Screen (NotDetected) Ur Propoxyphene Screen (NotDetected) Ur Barbiturates Screen (NotDetected) U Tricyclic Antidepress (NotDetected) Ur Phencyclidine Scrn (NotDetected) Ur Amphetamines Screen (NotDetected) U Methamphetamines Scrn (NotDetected) U Benzodiazepines Scrn (NotDetected) Urine Cocaine Screen (NotDetected) U Marijuana (THC) Screen (NotDetected) 06/13/18 06/14/18 Range/Units 22:40 00:00 WBC (3.8-10.6) k/uL RBC (3.80-5.40) m/uL Hgb (11.4-16.0) gm/dL Hct (34.0-46.0) % MCV (80.0-100.0) fL MCH (25.0-35.0) pg MCHC (31.0-37.0) g/dL RDW (11.5-15.5) % Plt Count (150-450) k/uL Neutrophils % % Lymphocytes % % Monocytes % % Eosinophils % % Basophils % % Neutrophils # (1.3-7.7) k/uL Lymphocytes # (1.0-4.8) k/uL Monocytes # (0-1.0) k/uL Eosinophils # (0-0.7) k/uL Basophils # (0-0.2) k/uL Hypochromasia Anisocytosis Microcytosis PT (9.0-12.0) sec INR (<1.2) APTT (22.0-30.0) sec VBG pH 7.45 H (7.31-7.41) VBG pCO2 41 (37-51) mmHg VBG HCO3 28 (24-28) mmol/L Sodium (137-145) mmol/L Potassium (3.5-5.1) mmol/L Chloride (98-107) mmol/L Carbon Dioxide (22-30) mmol/L Anion Gap mmol/L BUN (7-17) mg/dL Creatinine (0.52-1.04) mg/dL Est GFR (CKD-EPI)AfAm (>60 ml/min/1.73 sqM) Est GFR (CKD-EPI)NonAf (>60 ml/min/1.73 sqM) Glucose (74-99) mg/dL POC Glucose (mg/dL) (75-99) mg/dL POC [employer] ID Plasma Lactic Acid [place] (0.7-2.0) mmol/L Calcium (8.4-10.2) mg/dL Total Bilirubin (0.2-1.3) mg/dL AST (14-36) U/L ALT (9-52) U/L Alkaline Phosphatase (38-126) U/L Total Creatine Kinase (30-135) U/L CK-MB (CK-2) (0.0-2.4) ng/mL CK-MB (CK-2) Rel Index Troponin I (0.000-0.034) ng/mL Total Protein (6.3-8.2) g/dL Albumin (3.5-5.0) g/dL Urine Color Yellow Urine Appearance Cloudy H (Clear) Urine pH 7.0 (5.0-8.0) Ur Specific [place] 1.014 (1.001-1.035) Urine Protein 1+ H (Negative) Urine Glucose (UA) Negative (Negative) Urine Ketones Negative (Negative) Urine Blood Negative (Negative) Urine Nitrite Negative (Negative) Urine Bilirubin Negative (Negative) Urine Urobilinogen 8.0 (<2.0) mg/dL Ur Leukocyte Esterase Large H (Negative) Urine RBC 1 (0-5) /hpf Urine WBC 27 H (0-5) /hpf Urine Bacteria Occasional H (None) /hpf Urine Mucus Moderate H (None) /hpf Urine Opiates Screen Detected H (NotDetected) Ur Oxycodone Screen Not Detected (NotDetected) Urine Methadone Screen Not Detected (NotDetected) Ur Propoxyphene Screen Not Detected (NotDetected) Ur Barbiturates Screen Not Detected (NotDetected) U Tricyclic Antidepress Detected H (NotDetected) Ur Phencyclidine Scrn Not Detected (NotDetected) Ur Amphetamines Screen Not Detected (NotDetected) U Methamphetamines Scrn Not Detected (NotDetected) U Benzodiazepines Scrn Not Detected (NotDetected) Urine Cocaine Screen Not Detected (NotDetected) U Marijuana (THC) Screen Not Detected (NotDetected) Critical Care Time Critical Care Time: Yes Total Critical Care Time: 35 Disposition Clinical Impression: Renal calculus, UTI (urinary tract infection), Sepsis Disposition: ADMITTED IP TO THIS [facility] Condition: Serious Is patient prescribed a controlled substance at d/c from ED?: No Referrals: Katelyn Rai MD [Primary Care Provider] - 1-2 days Decision to Admit Reason: Admit from EC Decision Date: 06/14/18 Decision Time: 00:52
[2018-06-13 22:58] LABS: Anisocytosis Slight; Basophils % (A) 0 %; Eosinophils % (A) 0 %; HCT 34.3 % (34.0-46.0); HGB 10.1 gm/dL (11.4-16.0); Hypochromasia Marked; Lymphocytes # (A) 0.6 k/uL (1.0-4.8); Lymphocytes % (A) 3 %; MCH 22.1 pg (25.0-35.0); MCHC 29.3 g/dL (31.0-37.0); MCV 75.2 fL (80.0-100.0); Mean Platelet Volume 8.4; Microcytosis Moderate; Monocytes # (A) 0.8 k/uL (0-1.0); Monocytes % (A) 3 %; Neutrophils # (A) 21.5 k/uL (1.3-7.7); Neutrophils % (A) 93 %; Platelet Count 281 k/uL (150-450); RBC 4.56 m/uL (3.80-5.40); RDW 18.1 % (11.5-15.5); WBC 23.1 k/uL (3.8-10.6)
[2018-06-13 22:59] LABS: VBG PH 7.45 (7.31-7.41)
[2018-06-13 23:06] LABS: INR 1.3 (<1.2); Prothrombin Time 12.3 sec (9.0-12.0)
--- NOTE | 2018-06-13 23:08 | CT ---
EXAMINATION TYPE: CT brain wo con DATE OF EXAM: 06/13/2018 COMPARISON: 09/20/2017 HISTORY: Neuro Deficits CT DLP: 776.2 mGycm Automated exposure control for dose reduction was used. FINDINGS: There is some cerebral cortical atrophy. There is no mass effect nor midline shift. There is no sign of intracranial hemorrhage. There is no evidence of cerebral edema. The calvarium is intact. IMPRESSION: MILD ATROPHY. OTHERWISE NEGATIVE EXAM. NO CHANGE.
[2018-06-13 23:14] LABS: Albumin 2.9 g/dL (3.5-5.0); Calcium 8.5 mg/dL (8.4-10.2); Potassium 4.1 mmol/L (3.5-5.1); Total Bilirubin 1.5 mg/dL (0.2-1.3); Total Protein 5.7 g/dL (6.3-8.2)
[2018-06-13] MEDS ORDERED: LEVOFLOXACIN 500MG-D5W PMX 500 MG in DEXTROSE/WATER 1 100ML.BAG IVPB STA (23:21)
[2018-06-13] MEDS ORDERED: VANCOMYCIN IV PER PHARMACY 1 EACH MISC MISCELLANE PRN (23:21)
[2018-06-13] MEDS ORDERED: cefTRIAXone IN SWFI 1,000 MG/10 ML SYRINGE IVP STA (23:21)
[2018-06-13] MEDS ORDERED: metroNIDAZOLE-NS PMX 500 MG in SALINE 1 100ML.BAG IVPB STA (23:21)
[2018-06-13 23:32] LABS: Creatine Kinase MB 0.7 ng/mL (0.0-2.4); Troponin I 0.024 ng/mL (0.000-0.034)
[2018-06-13] MEDS ORDERED: SODIUM CHLORIDE 0.9% 1,000 ML IV ONE (23:32)
--- NOTE | 2018-06-13 23:33 | XR ---
EXAMINATION TYPE: XR chest 2V DATE OF EXAM: 06/13/2018 COMPARISON: NONE HISTORY: Possible stroke TECHNIQUE: Frontal and lateral views of the chest are obtained. FINDINGS: Heart and mediastinum are within normal limits. Lungs are clear. Costophrenic angles are c lear. There are chest leads. The bony thorax is intact. IMPRESSION: No active cardiopulmonary disease. No adverse change compared to old exam. There is incr eased density over the left upper lobe that is probably due to sclerosis in the anterior left first r ib that is unchanged.
[2018-06-14] MEDS ORDERED: VANCOMYCIN 1,500 MG in SODIUM CHLORIDE 0.9% 250 ML IVPB ONE ×2
[2018-06-14 00:11] LABS: Appearance,Urine Cloudy (Clear); Bacteria,Urine Occasional /hpf; Bilirubin,Urine Negative (Negative); Blood,Urine Negative (Negative); Color,Urine Yellow; Glucose,Urine (UA) Negative (Negative); Ketones,Urine Negative (Negative); Leukocyte Esterase,Urine Large (Negative); Mucus,Urine Moderate /hpf; Nitrite,Urine Negative (Negative); Protein,Urine 1+ (Negative); RBC,Urine 1 /hpf (0-5); Specific Gravity,Urine 1.014 (1.001-1.035); WBC,Urine 27 /hpf (0-5)
[2018-06-14 00:17] LABS: Amphetamine Screen,Urine Not Detected (NotDetected); Barbiturate Screen,Urine Not Detected (NotDetected); Benzodiazepines Screen,Urine Not Detected (NotDetected); Cocaine Screen,Urine Not Detected (NotDetected); Methadone Screen, Urine Not Detected (NotDetected); Opiate Screen,Urine Detected (NotDetected); Oxycodone Screen, Urine Not Detected (NotDetected); Phencyclidine Screen,Urine Not Detected (NotDetected); Tricyclic Antidepressant,Urine Detected (NotDetected); Urn Cannabinoid Scrn Not Detected (NotDetected)
--- NOTE | 2018-06-14 00:28 | CT ---
EXAMINATION TYPE: CT abdomen pelvis wo con DATE OF EXAM: 06/13/2018 COMPARISON: 11/23/2017 HISTORY: pt poor historian, confusion, AMS, gen abd pain after eating nuts, history of diverticulitis CT DLP: 2139.60 mGycm Automated exposure control for dose reduction was used. TECHNIQUE: Helical acquisition of images was performed from the lung bases through the pelvis. FINDINGS: There is a small infiltrate at the right posterior lung base. There is extensive fatty infiltration o f the liver. There is no evidence of a splenic mass. There is no pancreatic mass. Bile ducts are not dilated. There are clips from cholecystectomy. There is no adrenal mass. There are small right renal calculi that measure up to 6 mm. There is right -sided hydronephrosis. There is a 12 mm calculus at the right ureterovesical junction. There is mild right-sided perinephric edema. There is umbilical hernia that contains fat. There is no evidence of a bowel obstruction. There is no free air. There is no ascites. Bladder diste nds smoothly. There is faint 2 mm left renal calculus. There is no left-sided hydronephrosis. There i s osteopenia. IMPRESSION: FATTY INFILTRATION OF THE LIVER. THERE IS NEW SMALL INFILTRATE AT THE RIGHT POSTERIOR LUNG BASE MIRIAM RED TO OLD EXAM. PREVIOUS BARIATRIC SURGERY. OBSTRUCTING CALCULUS AT THE RIGHT URETEROPELVIC JUNCTION WITH HYDRONEPHROSIS. THIS IS NEW COMPARED TO OLD EXAM. NONOBSTRUCTING TINY LEFT RENAL CALCULUS. RIGHT-SIDED PERINEPHRIC EDEMA.
[2018-06-14] MEDS ORDERED: NALOXONE 0.4 MG/ML 1 ML VIAL IV PRN ×2 (00:42→17:08)
[2018-06-14] MEDS ORDERED: ACETAMINOPHEN TAB 325 MG TAB PO PRN (00:42)
[2018-06-14] MEDS ORDERED: SODIUM CHLORIDE 0.9% 500 ML IV ONE (00:45)
[2018-06-14] MEDS ORDERED: LEVOFLOXACIN 500MG-D5W PMX 500 MG in DEXTROSE/WATER 1 100ML.BAG IVPB SCH ×2 (01:00→23:00)
[2018-06-14] MEDS: SODIUM CHLORIDE 0.9% 1,000 ML IV SCH ×2 (01:02→14:16)
[2018-06-14] MEDS ORDERED: ONDANSETRON 4 MG/2 ML VIAL IVP PRN (02:06)
[2018-06-14] MEDS: MORPHINE SULFATE 4 MG/ML SYRINGE IV PRN ×2 (02:58→20:05)
[2018-06-14] MEDS ORDERED: ACETAMINOPHEN IV (For NPO) 1,000 MG in EMPTY BAG 1 BAG IVPB STA (04:36)
[2018-06-14] MEDS ORDERED: SODIUM CHLORIDE 0.9% 1,000 ML IV ONE ×7 (05:33→15:12)
--- NOTE | 2018-06-14 06:28 | P.GSCN ---
History of Present Illness Consult date: 06/14/18 Reason for Consult: Right UPJ Calculus, Sepsis Requesting physician: Varsha Morales History of present illness: The patient is a 62 year old white female with a history of urolithiasis. She presents with a three-day history of right flank pain, associated with nausea, vomiting, fever, and confusion. UA is not highly suggestive of a UTI. A CT scan shows right hydronephrosis with perinephric stranding due to a 12 mm right UPJ calculus. Review of Systems - Constitutional Reports fever, Reports lethargy - Gastrointestinal Reports nausea, Reports vomiting - Genitourinary Genitourinary: Reports kidney stones - Neurological Reports confusion Past Medical History Past Medical History: Asthma, Fibromyalgia, GERD/Reflux, Osteoarthritis (OA), Pneumonia, Rheumatoid Arthritis (RA), Sleep Apnea/CPAP/BIPAP, Thyroid Disorder Additional Past Medical History / Comment(s): NO LONGER HAS CPAP, ANEMIA, KIDNEY STONE, MIGRAINES, CHRONIC CONSTIPATION, hernia, tested positive for lupus , lesion on rt kidney, pt states not diabetic History of Any Multi-Drug Resistant Organisms: None Reported Past Surgical History: Bariatric Surgery, Breast Surgery, Section, Cholecystectomy, Hysterectomy, Joint Replacement, Orthopedic Surgery, Uterine Ablation Additional Past Surgical History / Comment(s): RT PARTIAL MASTECTOMY, LT WRIST HAS PLATE/SCREWS, venice KNEE REPLACEMENT, HEMORROIDECTOMY, ROEX-N-Y, hemorrhoidectomy, cystoscopy removal of kidney stone, arthroscopy left knee Past Anesthesia/Blood Transfusion Reactions: Previous Problems w/ Anesthesia Additional Past Anesthesia/Blood Transfusion Reaction / Comm: STATES HAD ISSUE POST OP R/T SLEEP APNEA WHERE O2 LEVEL WAS LOW, AND WAS IN ICU Past Psychological History: Depression Smoking Status: Former smoker Past Alcohol Use History: None Reported Past Drug Use History: None Reported - Past Family History Mother Family Medical History: Cancer Additional Family Medical History / Comment(s): UTERINE Medications and Allergies Home Medications Medication Instructions Recorded Confirmed Type Furosemide [Lasix] 40 mg PO DAILY 04/03/14 06/13/18 History Levothyroxine Sodium [Synthroid] 75 mcg PO DAILY 04/03/14 06/13/18 History Morphine Sulfate ER [Ms Contin] 30 mg PO BID 04/03/14 06/13/18 History Venlafaxine HCl [Effexor] 75 mg PO BID 04/03/14 06/13/18 History tiZANidine [Zanaflex] 4 mg PO TID PRN 04/03/14 06/13/18 History Albuterol Sulfate [Ventolin HFA] 2 puff INHALATION RT-Q6H PRN 07/24/14 06/13/18 History Amitriptyline HCl [Elavil] 75 mg PO HS 06/07/17 06/13/18 History Cyclobenzaprine [Flexeril] 10 mg PO BID 06/07/17 06/13/18 History Gabapentin 800 mg PO TID 06/07/17 06/13/18 History Montelukast [Singulair] 10 mg PO HS 06/07/17 06/13/18 History Pilocarpine HCl [Salagen] 7.5 mg PO BID 06/07/17 06/13/18 History metFORMIN HCL [Glucophage] 500 mg PO BID 06/07/17 06/13/18 History Cyanocobalamin [Vitamin B-12 1,000 mcg SQ Q30D 06/13/18 06/13/18 History Injection] Fluticasone Nasal [place] [Flonase 2 spr EA NOSTRIL DAILY 06/13/18 06/13/18 History Nasal [place]] HYDROcodone/APAP 10-325MG [[place] 1 tab PO Q6HR PRN 06/13/18 06/13/18 History 10-325] Nystatin 100,000 Unit/gm Powd 1 applic TOPICAL BID PRN 06/13/18 06/13/18 History [Mycostatin Powder] hydrOXYzine PAMOATE [Vistaril] 25 mg PO TID 06/13/18 06/13/18 History Allergies Allergy/AdvReac Type Severity Reaction Status Date / Time Penicillins Allergy Unknown Verified 06/13/18 22:52 Childhood Surgical - Exam Vital Signs Temp Pulse Resp BP Pulse Ox 98.2 F 113 H 18 94/59 93 L 06/13/18 22:08 06/13/18 22:08 06/13/18 22:08 06/13/18 22:08 06/13/18 22:08 - General well developed, well nourished, moderate distress - Neck no masses, trachea midline - Respiratory normal respiratory effort - Abdomen Abdomen: soft, tender (Diffuse abdominal tenderness to palpation), no guarding, no rigid, no rebound, no distended - Psychiatric oriented to time, oriented to person, oriented to place, speech is normal Results - Labs 06/13/18 22:40 06/13/18 22:40 Abnormal Lab Results - Last 24 Hours (Table) 06/13/18 06/13/18 06/13/18 Range/Units 22:19 22:40 22:40 WBC 23.1 H (3.8-10.6) k/uL Hgb 10.1 L (11.4-16.0) gm/dL MCV 75.2 L (80.0-100.0) fL MCH 22.1 L (25.0-35.0) pg MCHC 29.3 L (31.0-37.0) g/dL RDW 18.1 H (11.5-15.5) % Neutrophils # 21.5 H (1.3-7.7) k/uL Lymphocytes # 0.6 L (1.0-4.8) k/uL PT (9.0-12.0) sec INR (<1.2) VBG pH (7.31-7.41) Sodium (137-145) mmol/L BUN (7-17) mg/dL Creatinine (0.52-1.04) mg/dL Glucose (74-99) mg/dL POC Glucose (mg/dL) 138 H (75-99) mg/dL Plasma Lactic Acid Roberth (0.7-2.0) mmol/L Total Bilirubin (0.2-1.3) mg/dL AST (14-36) U/L ALT (9-52) U/L Alkaline Phosphatase (38-126) U/L Total Creatine Kinase 153 H (30-135) U/L Total Protein (6.3-8.2) g/dL Albumin (3.5-5.0) g/dL Urine Appearance (Clear) Urine Protein (Negative) Ur Leukocyte Esterase (Negative) Urine WBC (0-5) /hpf Urine Bacteria (None) /hpf Urine Mucus (None) /hpf Urine Opiates Screen (NotDetected) U Tricyclic Antidepress (NotDetected) 06/13/18 06/13/18 06/13/18 Range/Units 22:40 22:40 22:40 WBC (3.8-10.6) k/uL Hgb (11.4-16.0) gm/dL MCV (80.0-100.0) fL MCH (25.0-35.0) pg MCHC (31.0-37.0) g/dL RDW (11.5-15.5) % Neutrophils # (1.3-7.7) k/uL Lymphocytes # (1.0-4.8) k/uL PT 12.3 H (9.0-12.0) sec INR 1.3 H (<1.2) VBG pH (7.31-7.41) Sodium 135 L (137-145) mmol/L BUN 27 H (7-17) mg/dL Creatinine 1.50 H (0.52-1.04) mg/dL Glucose 147 H (74-99) mg/dL POC Glucose (mg/dL) (75-99) mg/dL Plasma Lactic Acid Roberth 3.0 H* (0.7-2.0) mmol/L Total Bilirubin 1.5 H (0.2-1.3) mg/dL AST 149 H (14-36) U/L ALT 74 H (9-52) U/L Alkaline Phosphatase 169 H (38-126) U/L Total Creatine Kinase (30-135) U/L Total Protein 5.7 L (6.3-8.2) g/dL Albumin 2.9 L (3.5-5.0) g/dL Urine Appearance (Clear) Urine Protein (Negative) Ur Leukocyte Esterase (Negative) Urine WBC (0-5) /hpf Urine Bacteria (None) /hpf Urine Mucus (None) /hpf Urine Opiates Screen (NotDetected) U Tricyclic Antidepress (NotDetected) 06/13/18 06/14/18 06/14/18 Range/Units 22:40 00:00 02:50 WBC (3.8-10.6) k/uL Hgb (11.4-16.0) gm/dL MCV (80.0-100.0) fL MCH (25.0-35.0) pg MCHC (31.0-37.0) g/dL RDW (11.5-15.5) % Neutrophils # (1.3-7.7) k/uL Lymphocytes # (1.0-4.8) k/uL PT (9.0-12.0) sec INR (<1.2) VBG pH 7.45 H (7.31-7.41) Sodium (137-145) mmol/L BUN (7-17) mg/dL Creatinine (0.52-1.04) mg/dL Glucose (74-99) mg/dL POC Glucose (mg/dL) (75-99) mg/dL Plasma Lactic Acid Roberth 2.4 H* (0.7-2.0) mmol/L Total Bilirubin (0.2-1.3) mg/dL AST (14-36) U/L ALT (9-52) U/L Alkaline Phosphatase (38-126) U/L Total Creatine Kinase (30-135) U/L Total Protein (6.3-8.2) g/dL Albumin (3.5-5.0) g/dL Urine Appearance Cloudy H (Clear) Urine Protein 1+ H (Negative) Ur Leukocyte Esterase Large H (Negative) Urine WBC 27 H (0-5) /hpf Urine Bacteria Occasional H (None) /hpf Urine Mucus Moderate H (None) /hpf Urine Opiates Screen Detected H (NotDetected) U Tricyclic Antidepress Detected H (NotDetected) Diabetes panel 06/13/18 Range/Units 22:40 Sodium 135 L (137-145) mmol/L Potassium 4.1 (3.5-5.1) mmol/L Chloride 99 (98-107) mmol/L Carbon Dioxide 27 (22-30) mmol/L BUN 27 H (7-17) mg/dL Creatinine 1.50 H (0.52-1.04) mg/dL Glucose 147 H (74-99) mg/dL Calcium 8.5 (8.4-10.2) mg/dL AST 149 H (14-36) U/L ALT 74 H (9-52) U/L Alkaline Phosphatase 169 H (38-126) U/L Total Protein 5.7 L (6.3-8.2) g/dL Albumin 2.9 L (3.5-5.0) g/dL Calcium panel 06/13/18 Range/Units 22:40 Calcium 8.5 (8.4-10.2) mg/dL Albumin 2.9 L (3.5-5.0) g/dL Pituitary panel 06/13/18 Range/Units 22:40 Sodium 135 L (137-145) mmol/L Potassium 4.1 (3.5-5.1) mmol/L Chloride 99 (98-107) mmol/L Carbon Dioxide 27 (22-30) mmol/L BUN 27 H (7-17) mg/dL Creatinine 1.50 H (0.52-1.04) mg/dL Glucose 147 H (74-99) mg/dL Calcium 8.5 (8.4-10.2) mg/dL Adrenal panel 06/13/18 Range/Units 22:40 Sodium 135 L (137-145) mmol/L Potassium 4.1 (3.5-5.1) mmol/L Chloride 99 (98-107) mmol/L Carbon Dioxide 27 (22-30) mmol/L BUN 27 H (7-17) mg/dL Creatinine 1.50 H (0.52-1.04) mg/dL Glucose 147 H (74-99) mg/dL Calcium 8.5 (8.4-10.2) mg/dL Total Bilirubin 1.5 H (0.2-1.3) mg/dL AST 149 H (14-36) U/L ALT 74 H (9-52) U/L Alkaline Phosphatase 169 H (38-126) U/L Total Protein 5.7 L (6.3-8.2) g/dL Albumin 2.9 L (3.5-5.0) g/dL - Imaging CT scan - abdomen: report reviewed, image reviewed Assessment and Plan (1) Calculus of ureter Current Visit: Yes Status: Acute Code(s): N20.1 - CALCULUS OF URETER SNOMED Code(s): 12275167 (2) Hydronephrosis with obstructing calculus Current Visit: Yes Status: Acute Code(s): N13.2 - HYDRONEPHROSIS WITH RENAL AND URETERAL CALCULOUS OBSTRUCTION SNOMED Code(s): 84620025 Plan: This patient is obviously septic, and a definite source of the sepsis has not been identified. It is likely to be urinary in origin related to her obstructing calculus, and she will thus undergo cystoscopy with right ureteral stent insertion. The procedure was reviewed in detail with the patient and her family. The rationale for stent placement was discussed, as well as potential risks. These include anesthesia, ureteral injury, and inability to successfully place the stent. They understand that if stent placement is unsuccessful, she may require placement of a right percutaneous nephrostomy tube. Time with Patient: Greater than 30
[2018-06-14] MEDS ORDERED: LIDOCAINE 1% INJ 10MG/ML (20 ML MDV) ONE (06:43)
[2018-06-14] MEDS ORDERED: MIDAZOLAM 2 MG/2 ML VIAL ONE (06:43)
[2018-06-14] MEDS ORDERED: SUCCINYLCHOLINE CHLORIDE 100 MG/5 ML SYR IV ONE (06:43)
[2018-06-14] MEDS ORDERED: IV FLUID CONTINUATION 1,000 ML IV ONE (06:43)
[2018-06-14] MEDS ORDERED: PHENYLEPHRINE-0.9% NACL SYG 1 MG/10 ML SYRINGE ONE (06:43)
[2018-06-14] MEDS ORDERED: fentaNYL (PF) 50 MCG/ML 2 ML AMP ONE (06:43)
[2018-06-14] MEDS ORDERED: PROPOFOL 10 MG/ML 20 ML VIAL IV ONE (06:43)
[2018-06-14] MEDS ORDERED: LACTATED RINGERS 1,000 ML IV ONE (07:16)
--- NOTE | 2018-06-14 07:33 | P.OP ---
Date of Procedure: 06/14/18 Preoperative Diagnosis: Right UPJ calculus, sepsis Postoperative Diagnosis: Right UPJ calculus, acute right pyelonephritis Procedure(s) Performed: Cystoscopy, right ureteral stent insertion Anesthesia: MILDREDA Surgeon: Shukri Velasco Estimated Blood Loss (ml): 0 IV fluids (ml): 500 Pathology: none sent Condition: stable Disposition: PACU Indications for Procedure: The patient is a 62 year old white female with a history of urolithiasis. She presents with a three-day history of right flank pain, associated with nausea, vomiting, fever, and confusion. UA is not highly suggestive of a UTI. A CT scan shows right hydronephrosis with perinephric stranding due to a 12 mm right UPJ calculus. Operative Findings: Obstructing 12 mm right UPJ calculus. Cloudy urine drained from the right renal pelvis. A specimen was sent for culture and sensitivity. Description of Procedure: The patient was taken to the operating room and placed in the dorsolithotomy position, with legs supported in Tate stirrups. The external genitalia was prepped and draped sterilely. The 30 lens was used to introduce the 22-[place]err[place]ian Stortz cystoscopic sheath through the urethra and into the bladder under direct vision. The bladder was examined in its entirety. Both ureteral orifices were of normal anatomic location and configuration. No tumors or foreign bodies were seen. A 0.035 inch Glidewire was passed through the cystoscope. The right ureteral orifice was cannulated, and the Glidewire was slowly advanced up to the renal pelvis. The wire passed beyond the calculus, which is radiopaque, without difficulty. A 24 cm, 6-[place]ian double-J ureteral stent was placed over the wire. Proper stent positioning was verified fluoroscopically and endoscopically. Cloudy urine drained from the right renal pelvis. With the beak of the cystoscope immediately adjacent to the distal end of the stent, a urine specimen was drained from the bladder and sent for culture and sensitivity. The cystoscope was removed, and a Esposito catheter was placed. The patient tolerated the procedure well was taken to the recovery room in stable condition.
--- NOTE | 2018-06-14 08:45 | FL ---
Fluoroscopy History: Cysto w/rt.stent insertion. 21sec fluoro time, 1 image scanned.
[2018-06-14] MEDS ORDERED: ACETAMINOPHEN IV (For NPO) 1,000 MG/100 ML VIAL IVPB ONE (11:41)
[2018-06-14] MEDS: AZTREONAM 2 GM in SODIUM CHLORIDE 0.9% 100 ML IVPB SCH ×2 (13:09→20:11)
[2018-06-14 13:16] LABS: INR 1.5 (<1.2); Prothrombin Time 13.9 sec (9.0-12.0)
[2018-06-14 13:19] LABS: Anisocytosis Slight; Basophils % (A) 0 %; Eosinophils % (A) 0 %; HCT 27.8 % (34.0-46.0); Hypochromasia Marked; Lymphocytes # (A) 0.3 k/uL (1.0-4.8); Lymphocytes % (A) 2 %; MCH 22.4 pg (25.0-35.0); MCHC 29.2 g/dL (31.0-37.0); MCV 76.7 fL (80.0-100.0); Mean Platelet Volume 8.5; Microcytosis Slight; Monocytes # (A) 0.4 k/uL (0-1.0); Monocytes % (A) 3 %; Neutrophils # (A) 11.9 k/uL (1.3-7.7); Neutrophils % (A) 94 %; Platelet Count 177 k/uL (150-450); RBC 3.62 m/uL (3.80-5.40); WBC 12.7 k/uL (3.8-10.6)
[2018-06-14 13:22] LABS: Calcium 7.7 mg/dL (8.4-10.2); Potassium 3.4 mmol/L (3.5-5.1); Total Bilirubin 1.2 mg/dL (0.2-1.3); Total Protein 4.3 g/dL (6.3-8.2)
[2018-06-14 13:23] LABS: HGB 8.1 gm/dL (11.4-16.0)
[2018-06-14 13:27] LABS: Vancomycin,Random 9.9 ug/mL
--- NOTE | 2018-06-14 13:27 | P.HPIM ---
History of Present Illness This is a pleasant 62 years old female with past medical history of kidney stone , common femoral artery, GERD, pneumonia, rheumatoid arthritis, sleep apnea on BiPAP/CPAP, previous bypass surgery and iron deficiency anemia. She had EGD/ colonoscopy about 20 years ago for an expected weight loss which was unremarkable. Patient presents with septic like picture clips P secondary to kidney stone. Patient was confused and It appears that she could not provide information. Information was taken from the daughter Ms. Ugarte at bedside, as per her patient was complaining of from around her pain and repeated nausea vomiting, and one-day duration and next morning patient was found unresponsive and she brought to the emergency room daughter also states patient complaining of from mouth infection in the last few days. Interim patient was found to have pulmonary tract infection, with kidney stones and hydronephrosis. Computed tomography scan showed right hydronephrosis with perinephric stranding due to a 12 mm right UPJ calculus. Patient had 6-Spanish double-J ureteral stent placed in the right ureter after the stone was removed through the cystoscopy by the urologist. When I saw the patient this morning patient was lying in bed moaning but does not follow commands. Her systolic blood pressure was running in the 90-100, last year was around 150. Patient received about 5 L of fluid already had several antibiotics, of note patient is ALLERGIC to penicillin however she received IV vancomycin. We give her a bolus of 1 L. Repeat All labs, and start her on aztreonam. 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 Review of Systems n/a Past Medical History Past Medical History: Asthma, Fibromyalgia, GERD/Reflux, Osteoarthritis (OA), Pneumonia, Rheumatoid Arthritis (RA), Sleep Apnea/CPAP/BIPAP, Thyroid Disorder Additional Past Medical History / Comment(s): NO LONGER HAS CPAP, ANEMIA, KIDNEY STONE, MIGRAINES, CHRONIC CONSTIPATION, hernia, tested positive for lupus , lesion on rt kidney, pt states not diabetic History of Any Multi-Drug Resistant Organisms: None Reported Past Surgical History: Bariatric Surgery, Breast Surgery, Section, Cholecystectomy, Hysterectomy, Joint Replacement, Orthopedic Surgery, Uterine Ablation Additional Past Surgical History / Comment(s): RT PARTIAL MASTECTOMY, LT WRIST HAS PLATE/SCREWS, venice KNEE REPLACEMENT, HEMORROIDECTOMY, ROEX-N-Y, hemorrhoidectomy, cystoscopy removal of kidney stone, arthroscopy left knee Past Anesthesia/Blood Transfusion Reactions: Previous Problems w/ Anesthesia Additional Past Anesthesia/Blood Transfusion Reaction / Comment(s): STATES HAD ISSUE POST OP R/T SLEEP APNEA WHERE O2 LEVEL WAS LOW, AND WAS IN ICU Past Psychological History: Depression Smoking Status: Former smoker Past Alcohol Use History: None Reported Past Drug Use History: None Reported - Past Family History Mother Family Medical History: Cancer Additional Family Medical History / Comment(s): UTERINE Medications and Allergies Home Medications Medication Instructions Recorded Confirmed Type Furosemide [Lasix] 40 mg PO DAILY 04/03/14 06/13/18 History Levothyroxine Sodium [Synthroid] 75 mcg PO DAILY 04/03/14 06/13/18 History Morphine Sulfate ER [Ms Contin] 30 mg PO BID 04/03/14 06/13/18 History Venlafaxine HCl [Effexor] 75 mg PO BID 04/03/14 06/13/18 History tiZANidine [Zanaflex] 4 mg PO TID PRN 04/03/14 06/13/18 History Albuterol Sulfate [Ventolin HFA] 2 puff INHALATION RT-Q6H PRN 07/24/14 06/13/18 History Amitriptyline HCl [Elavil] 75 mg PO HS 06/07/17 06/13/18 History Cyclobenzaprine [Flexeril] 10 mg PO BID 06/07/17 06/13/18 History Gabapentin 800 mg PO TID 06/07/17 06/13/18 History Montelukast [Singulair] 10 mg PO HS 06/07/17 06/13/18 History Pilocarpine HCl [Salagen] 7.5 mg PO BID 06/07/17 06/13/18 History metFORMIN HCL [Glucophage] 500 mg PO BID 06/07/17 06/13/18 History Cyanocobalamin [Vitamin B-12 1,000 mcg SQ Q30D 06/13/18 06/13/18 History Injection] Fluticasone Nasal [place] [Flonase 2 spr EA NOSTRIL DAILY 06/13/18 06/13/18 History Nasal [place]] HYDROcodone/APAP 10-325MG [[place] 1 tab PO Q6HR PRN 06/13/18 06/13/18 History 10-325] Nystatin 100,000 Unit/gm Powd 1 applic TOPICAL BID PRN 06/13/18 06/13/18 History [Mycostatin Powder] hydrOXYzine PAMOATE [Vistaril] 25 mg PO TID 06/13/18 06/13/18 History Allergies Allergy/AdvReac Type Severity Reaction Status Date / Time Penicillins Allergy Unknown Verified 06/13/18 22:52 Childhood Physical Exam Vitals: Vital Signs Temp Pulse Pulse Resp BP BP Pulse Ox 06/14/18 11:41 100.7 F H 06/14/18 11:30 111 H 18 101/52 98 06/14/18 11:00 110 H 20 98/54 98 06/14/18 10:30 109 H 20 89/54 99 06/14/18 10:00 110 H 20 102/58 100 06/14/18 09:30 108 H 20 97/56 100 06/14/18 09:00 109 H 18 98/56 100 06/14/18 08:45 108 H 18 97/53 93 L 06/14/18 08:30 104 H 18 105/62 94 L 06/14/18 08:15 105 H 18 101/58 100 06/14/18 08:00 107 H 18 102/59 100 06/14/18 07:45 105 H 18 101/59 100 06/14/18 07:29 97.4 F L 107 H 16 98/53 100 06/14/18 06:30 118 H 18 124/57 97 06/14/18 06:08 115 H 124/57 97 06/14/18 05:35 103.1 F H 122 H 18 119/66 96 06/14/18 04:35 128 H 18 191/77 95 06/14/18 04:25 104.4 F H 130 H 20 223/92 98 06/14/18 03:26 119 H 18 174/77 99 06/14/18 02:55 98.9 F 117 H 18 177/81 100 06/14/18 01:00 107 H 16 160/73 99 06/14/18 00:59 106 H 18 147/67 99 06/14/18 00:01 104 H 18 163/73 100 06/13/18 22:08 98.2 F 113 H 18 94/59 93 L Intake and Output 06/13/18 06/14/18 06/14/18 22:59 06:59 14:59 Intake Total 400 1000 Output Total 700 200 Balance -300 800 Intake: IV 400 1000 Output: Urine 700 200 Straight 400 Estimated Blood Loss 0 Other: Weight 97.522 kg GENERAL: The patient is confused and not responsive, she morning and answering particularly known, no more okay, HEENT: Pupils are round and equally reacting to light. EOMI. No scleral icterus. No conjunctival pallor. Normocephalic, atraumatic. No pharyngeal erythema. No thyromegaly. CARDIOVASCULAR: S1 and S2 present. No murmurs, rubs, or gallops. PULMONARY: Chest is clear to auscultation, no wheezing or crackles. ABDOMEN: Soft, nontender, nondistended, normoactive bowel sounds. No palpable organomegaly. MUSCULOSKELETAL: No joint swelling or deformity. EXTREMITIES: No cyanosis, clubbing, or pedal edema. NEUROLOGICAL: Gross neurological examination did not reveal any focal deficits. SKIN: No rashes. Results CBC & Chem 7: 06/13/18 22:40 06/13/18 22:40 Labs: Abnormal Lab Results - Last 24 Hours (Table) 06/13/18 06/13/18 06/13/18 Range/Units 22:19 22:40 22:40 WBC 23.1 H (3.8-10.6) k/uL Hgb 10.1 L (11.4-16.0) gm/dL MCV 75.2 L (80.0-100.0) fL MCH 22.1 L (25.0-35.0) pg MCHC 29.3 L (31.0-37.0) g/dL RDW 18.1 H (11.5-15.5) % Neutrophils # 21.5 H (1.3-7.7) k/uL Lymphocytes # 0.6 L (1.0-4.8) k/uL PT (9.0-12.0) sec INR (<1.2) VBG pH (7.31-7.41) Sodium (137-145) mmol/L BUN (7-17) mg/dL Creatinine (0.52-1.04) mg/dL Glucose (74-99) mg/dL POC Glucose (mg/dL) 138 H (75-99) mg/dL Plasma Lactic Acid [place] (0.7-2.0) mmol/L Total Bilirubin (0.2-1.3) mg/dL AST (14-36) U/L ALT (9-52) U/L Alkaline Phosphatase (38-126) U/L Total Creatine Kinase 153 H (30-135) U/L Total Protein (6.3-8.2) g/dL Albumin (3.5-5.0) g/dL Urine Appearance (Clear) Urine Protein (Negative) Ur Leukocyte Esterase (Negative) Urine WBC (0-5) /hpf Urine Bacteria (None) /hpf Urine Mucus (None) /hpf Urine Opiates Screen (NotDetected) U Tricyclic Antidepress (NotDetected) 06/13/18 06/13/18 06/13/18 Range/Units 22:40 22:40 22:40 WBC (3.8-10.6) k/uL Hgb (11.4-16.0) gm/dL MCV (80.0-100.0) fL MCH (25.0-35.0) pg MCHC (31.0-37.0) g/dL RDW (11.5-15.5) % Neutrophils # (1.3-7.7) k/uL Lymphocytes # (1.0-4.8) k/uL PT 12.3 H (9.0-12.0) sec INR 1.3 H (<1.2) VBG pH (7.31-7.41) Sodium 135 L (137-145) mmol/L BUN 27 H (7-17) mg/dL Creatinine 1.50 H (0.52-1.04) mg/dL Glucose 147 H (74-99) mg/dL POC Glucose (mg/dL) (75-99) mg/dL Plasma Lactic Acid Roberth 3.0 H* (0.7-2.0) mmol/L Total Bilirubin 1.5 H (0.2-1.3) mg/dL AST 149 H (14-36) U/L ALT 74 H (9-52) U/L Alkaline Phosphatase 169 H (38-126) U/L Total Creatine Kinase (30-135) U/L Total Protein 5.7 L (6.3-8.2) g/dL Albumin 2.9 L (3.5-5.0) g/dL Urine Appearance (Clear) Urine Protein (Negative) Ur Leukocyte Esterase (Negative) Urine WBC (0-5) /hpf Urine Bacteria (None) /hpf Urine Mucus (None) /hpf Urine Opiates Screen (NotDetected) U Tricyclic Antidepress (NotDetected) 06/13/18 06/14/18 06/14/18 Range/Units 22:40 00:00 02:50 WBC (3.8-10.6) k/uL Hgb (11.4-16.0) gm/dL MCV (80.0-100.0) fL MCH (25.0-35.0) pg MCHC (31.0-37.0) g/dL RDW (11.5-15.5) % Neutrophils # (1.3-7.7) k/uL Lymphocytes # (1.0-4.8) k/uL PT (9.0-12.0) sec INR (<1.2) VBG pH 7.45 H (7.31-7.41) Sodium (137-145) mmol/L BUN (7-17) mg/dL Creatinine (0.52-1.04) mg/dL Glucose (74-99) mg/dL POC Glucose (mg/dL) (75-99) mg/dL Plasma Lactic Acid Roberth 2.4 H* (0.7-2.0) mmol/L Total Bilirubin (0.2-1.3) mg/dL AST (14-36) U/L ALT (9-52) U/L Alkaline Phosphatase (38-126) U/L Total Creatine Kinase (30-135) U/L Total Protein (6.3-8.2) g/dL Albumin (3.5-5.0) g/dL Urine Appearance Cloudy H (Clear) Urine Protein 1+ H (Negative) Ur Leukocyte Esterase Large H (Negative) Urine WBC 27 H (0-5) /hpf Urine Bacteria Occasional H (None) /hpf Urine Mucus Moderate H (None) /hpf Urine Opiates Screen Detected H (NotDetected) U Tricyclic Antidepress Detected H (NotDetected) Microbiology - Last 24 Hours (Table) 06/14/18 00:00 Urine Culture - Preliminary Urine,Catheterized Thrombosis Risk Factor Assmnt - Choose All That Apply Each Factor Represents 1 point: Age 41-60 years, History of prior major surgery (<1month), Obesity (BMI >25), Sepsis (< 1month) Each Risk Factor Represents 2 Points: Age 61-74 years Thrombosis Risk Factor Assessment Total Risk Factor Score: 6 Thrombosis Risk Factor Assessment Level: High Risk Assessment and Plan Assessment: Septic shock Gram-negative septicemia Acute Right pyelonephritis Right hydronephrosis, secondary to right kidney stone, status post stone removal by cystoscopy and stent placement by urologist. History of anemia History of his sleep apnea, on BiPAP History of GERD History of asthma Plan: 62 years old female with past medical history of kidney stone, presents with acute right pyelonephritis with septic shock, secondary to obstructing right kidney calculus with hydronephrosis. Status post stone removal and stent placement. Admitted the patient to the ICU. Continue with same and treatment. Start antibiotics. follow-up labs and vitals. Pulmonary/critical care and infectious disease consult. Continue with IV fluids. DVT and GI prophylaxis. Further recommendations based on the clinical course of the patient. Patient is full code as per Daughter Mrs. Duong at bedside
--- NOTE | 2018-06-14 15:23 | XR ---
EXAMINATION TYPE: XR chest 1V portable DATE OF EXAM: 06/14/2018 HISTORY: Shortness of breath. COMPARISON: June 13, 2018 TECHNIQUE: Single view of the chest is submitted. FINDINGS: Left IJ central venous line with its distal tip overlying the SVC. No evidence for pneumothorax. Demonstrated are scattered senescent parenchymal change. There is no evidence for focal infiltrate. The heart is stable. 100 venous congestion without overt failure. Hilar and mediastinal structures are within normal limits. Degenerative changes are seen of the dorsal spine. IMPRESSION: 1. Central venous line as noted. No evidence for pneumothorax.
[2018-06-14] MEDS ORDERED: cefTRIAXone IN SWFI 2,000 MG/20 ML SYRINGE IVP SCH (15:30)
--- NOTE | 2018-06-14 15:44 | P.CNPUL ---
History of Present Illness Consult date: 06/14/18 Chief complaint: UTI/sepsis History of present illness: 62-year-old obese female patient with known history of nephrolithiasis. The patient presented to the hospital because of 3 day history of right flank pain associated with nausea vomiting fever and altered mentation. Her initial UA was essentially not suggestive of an underlying UTI. CAT scan of the abdomen and pelvis was done and showed right kidney hydronephrosis with perinephric stranding and a 12 mm right UPJ calculus. Based on that, the patient was taken to the operating room and the patient underwent cystoscopy and right ureteral stent insertion for right kidney pyelonephritis and right UPJ calculus. At this point in time, the patient is in the intensive care unit. She is identified to be septic and she currently has a gram-negative bacillus in her blood which is probably of a urinary source. I looked back in her old cultures in a seated the patient was infected with E. coli that was resistant to quinolones back in September 2017. Based on that, I give the patient 2 g of IV Rocephin and I put her on aztreonam IV. I also inserted a triple lumen catheter in the left IJ. The patient is being resuscitated IV fluids pH was given a liter of normal saline in the recovery and she will receive another liter here in the ICU. Her white cell count is at 12.7. She has mild lactic acidosis is improving and it lactic acid level is down to 1.3 from a baseline of 3.0. She is also an acute kidney injury. Creatinine is up to 1.5 from a normal baseline. LFTs are mildly abnormal also. This is probably due to underlying sepsis. The patient is a bit restless. She is confused. She is encephalopathic probably related to underlying sepsis. She has not required pressors. No significant tachycardia and her cardiac rhythm is sinus at this point in time. Review of Systems ROS unobtainable: due to mental status Past Medical History Past Medical History: Asthma, Fibromyalgia, GERD/Reflux, Osteoarthritis (OA), Pneumonia, Rheumatoid Arthritis (RA), Sleep Apnea/CPAP/BIPAP, Thyroid Disorder Additional Past Medical History / Comment(s): Morbid obesity, nephrolithiasis, fibromyalgia, osteoarthritis, rheumatoid arthritis, obstructive sleep apnea mild in severity with an AHI of 11, hypothyroidism, depression, chronic anemia, migraines, positive ALEXSANDER, acid reflux, bronchial asthma History of Any Multi-Drug Resistant Organisms: None Reported Past Surgical History: Bariatric Surgery, Breast Surgery, Section, Cholecystectomy, Hysterectomy, Joint Replacement, Orthopedic Surgery, Uterine Ablation Additional Past Surgical History / Comment(s): RT PARTIAL MASTECTOMY, LT WRIST HAS PLATE/SCREWS, venice KNEE REPLACEMENT, HEMORROIDECTOMY, ROEX-N-Y, hemorrhoidectomy, cystoscopy removal of kidney stone, arthroscopy left knee Past Anesthesia/Blood Transfusion Reactions: Previous Problems w/ Anesthesia Additional Past Anesthesia/Blood Transfusion Reaction / Comment(s): STATES HAD ISSUE POST OP R/T SLEEP APNEA WHERE O2 LEVEL WAS LOW, AND WAS IN ICU Past Psychological History: Depression Smoking Status: Former smoker Past Alcohol Use History: None Reported Past Drug Use History: None Reported - Past Family History Mother Family Medical History: Cancer Additional Family Medical History / Comment(s): UTERINE Medications and Allergies Home Medications Medication Instructions Recorded Confirmed Type Furosemide [Lasix] 40 mg PO DAILY 04/03/14 06/13/18 History Levothyroxine Sodium [Synthroid] 75 mcg PO DAILY 04/03/14 06/13/18 History Morphine Sulfate ER [Ms Contin] 30 mg PO BID 04/03/14 06/13/18 History Venlafaxine HCl [Effexor] 75 mg PO BID 04/03/14 06/13/18 History tiZANidine [Zanaflex] 4 mg PO TID PRN 04/03/14 06/13/18 History Albuterol Sulfate [Ventolin HFA] 2 puff INHALATION RT-Q6H PRN 07/24/14 06/13/18 History Amitriptyline HCl [Elavil] 75 mg PO HS 06/07/17 06/13/18 History Cyclobenzaprine [Flexeril] 10 mg PO BID 06/07/17 06/13/18 History Gabapentin 800 mg PO TID 06/07/17 06/13/18 History Montelukast [Singulair] 10 mg PO HS 06/07/17 06/13/18 History Pilocarpine HCl [Salagen] 7.5 mg PO BID 06/07/17 06/13/18 History metFORMIN HCL [Glucophage] 500 mg PO BID 06/07/17 06/13/18 History Cyanocobalamin [Vitamin B-12 1,000 mcg SQ Q30D 06/13/18 06/13/18 History Injection] Fluticasone Nasal [place] [Flonase 2 spr EA NOSTRIL DAILY 06/13/18 06/13/18 History Nasal [place]] HYDROcodone/APAP 10-325MG [[place] 1 tab PO Q6HR PRN 06/13/18 06/13/18 History 10-325] Nystatin 100,000 Unit/gm Powd 1 applic TOPICAL BID PRN 06/13/18 06/13/18 History [Mycostatin Powder] hydrOXYzine PAMOATE [Vistaril] 25 mg PO TID 06/13/18 06/13/18 History Allergies Allergy/AdvReac Type Severity Reaction Status Date / Time Penicillins Allergy Unknown Verified 06/13/18 22:52 Childhood Physical Exam Vitals: Vital Signs Temp Pulse Pulse Resp BP BP Pulse Ox 06/14/18 15:20 101 H 26 H 116/60 96 06/14/18 15:10 130/75 95 06/14/18 15:00 100 52 H 130/75 95 06/14/18 14:50 98 34 H 115/64 93 L 06/14/18 14:40 103/55 06/14/18 14:30 101 H 87 H 103/55 06/14/18 14:00 98.3 F 100 31 H 104/62 93 L 06/14/18 13:20 100 18 108/56 96 06/14/18 12:40 103 H 20 94/53 95 06/14/18 12:10 105 H 20 84/48 96 06/14/18 11:41 100.7 F H 06/14/18 11:30 111 H 18 101/52 98 06/14/18 11:00 110 H 20 98/54 98 06/14/18 10:30 109 H 20 89/54 99 06/14/18 10:00 110 H 20 102/58 100 06/14/18 09:30 108 H 20 97/56 100 06/14/18 09:00 109 H 18 98/56 100 06/14/18 08:45 108 H 18 97/53 93 L 06/14/18 08:30 104 H 18 105/62 94 L 06/14/18 08:15 105 H 18 101/58 100 06/14/18 08:00 107 H 18 102/59 100 06/14/18 07:45 105 H 18 101/59 100 06/14/18 07:29 97.4 F L 107 H 16 98/53 100 06/14/18 06:30 118 H 18 124/57 97 06/14/18 06:08 115 H 124/57 97 06/14/18 05:35 103.1 F H 122 H 18 119/66 96 06/14/18 04:35 128 H 18 191/77 95 06/14/18 04:25 104.4 F H 130 H 20 223/92 98 06/14/18 03:26 119 H 18 174/77 99 06/14/18 02:55 98.9 F 117 H 18 177/81 100 06/14/18 01:00 107 H 16 160/73 99 06/14/18 00:59 106 H 18 147/67 99 06/14/18 00:01 104 H 18 163/73 100 06/13/18 22:08 98.2 F 113 H 18 94/59 93 L Intake and Output 06/14/18 06/14/18 06/14/18 06:59 14:59 22:59 Intake Total 400 3000 Output Total 700 250 Balance -300 2750 Intake: IV 400 3000 Output: Urine 700 250 Straight 400 Estimated Blood Loss 0 Obese, comfortable, confused, somewhat restless in bed Head exam was generally normal. There was no scleral icterus or corneal arcus. Mucous membranes were moist. Neck was supple and without jugular venous distension, thyromegaly, or carotid bruits. Carotids were easily palpable bilaterally. There was no adenopathy. The patient is a left IJ triple lumen catheter in place Lungs were clear to auscultation and percussion, and with normal diaphragmatic excursion. No wheezes or rales were noted. Cardiac exam revealed the PMI to be normally situated and sized. The rhythm was regular and no extrasystoles were noted during several minutes of auscultation. The first and second heart sounds were normal and physiologic splitting of the second heart sound was noted. There were no murmurs, rubs, clicks, or gallops. Abdomen is obese soft nontender no direct tenderness, no rebound tensile guarding, there is some mild right CVA angle tenderness Examination of the extremities revealed easily palpable radial, femoral and pedal pulses. There was no cyanosis, clubbing or edema. Examination of the skin revealed no evidence of significant rashes, suspicious appearing nevi or other concerning lesions. Neurologic ,confused, no cranial nerve deficits, moving all 4 extremities without any limitation Results - Laboratory Findings CBC and BMP: 06/14/18 12:55 06/14/18 12:55 PT/INR, D-dimer PT 13.9 sec (9.0-12.0) H 06/14/18 12:55 INR 1.5 (<1.2) H 06/14/18 12:55 Abnormal lab findings: Abnormal Labs 06/13/18 06/13/18 06/13/18 22:19 22:40 22:40 WBC 23.1 H RBC Hgb 10.1 L Hct MCV 75.2 L MCH 22.1 L MCHC 29.3 L RDW 18.1 H Neutrophils # 21.5 H Lymphocytes # 0.6 L PT INR VBG pH Sodium Potassium Chloride BUN Creatinine Glucose POC Glucose (mg/dL) 138 H Plasma Lactic Acid Roberth Calcium Total Bilirubin AST ALT Alkaline Phosphatase Total Creatine Kinase 153 H Total Protein Albumin Urine Appearance Urine Protein Ur Leukocyte Esterase Urine WBC Urine Bacteria Urine Mucus Urine Opiates Screen U Tricyclic Antidepress 06/13/18 06/13/18 06/13/18 22:40 22:40 22:40 WBC RBC Hgb Hct MCV MCH MCHC RDW Neutrophils # Lymphocytes # PT 12.3 H INR 1.3 H VBG pH Sodium 135 L Potassium Chloride BUN 27 H Creatinine 1.50 H Glucose 147 H POC Glucose (mg/dL) Plasma Lactic Acid Roberth 3.0 H* Calcium Total Bilirubin 1.5 H AST 149 H ALT 74 H Alkaline Phosphatase 169 H Total Creatine Kinase Total Protein 5.7 L Albumin 2.9 L Urine Appearance Urine Protein Ur Leukocyte Esterase Urine WBC Urine Bacteria Urine Mucus Urine Opiates Screen U Tricyclic Antidepress 06/13/18 06/14/18 06/14/18 22:40 00:00 02:50 WBC RBC Hgb Hct MCV MCH MCHC RDW Neutrophils # Lymphocytes # PT INR VBG pH 7.45 H Sodium Potassium Chloride BUN Creatinine Glucose POC Glucose (mg/dL) Plasma Lactic Acid Roberth 2.4 H* Calcium Total Bilirubin AST ALT Alkaline Phosphatase Total Creatine Kinase Total Protein Albumin Urine Appearance Cloudy H Urine Protein 1+ H Ur Leukocyte Esterase Large H Urine WBC 27 H Urine Bacteria Occasional H Urine Mucus Moderate H Urine Opiates Screen Detected H U Tricyclic Antidepress Detected H 06/14/18 06/14/1806/14/18 12:55 12:55 12:55 WBC 12.7 H RBC 3.62 L Hgb 8.1 L D Hct 27.8 L MCV 76.7 L MCH 22.4 L MCHC 29.2 L RDW 18.0 H Neutrophils # 11.9 H Lymphocytes # 0.3 L PT 13.9 H INR 1.5 H VBG pH Sodium Potassium 3.4 L Chloride 108 H BUN 26 H Creatinine 1.50 H Glucose 103 H POC Glucose (mg/dL) Plasma Lactic Acid Roberth Calcium 7.7 L Total Bilirubin AST 82 H ALT 62 H Alkaline Phosphatase Total Creatine Kinase Total Protein 4.3 L Albumin 2.0 L Urine Appearance Urine Protein Ur Leukocyte Esterase Urine WBC Urine Bacteria Urine Mucus Urine Opiates Screen U Tricyclic Antidepress - Diagnostic Findings Chest x-ray: image reviewed Assessment and Plan Plan: Assessment 1 acute gram-negative sepsis secondary to right kidney pyelonephritis 2 acute right kidney pyelonephritis/right UPJ calculus, post cystoscopy and right ureteral stent insertion 3 acute kidney injury secondary to above 4 nephrolithiasis, history of 5 acute lactic acidosis secondary to above, improving 6 hypotension secondary to sepsis, resuscitated IV fluids and currently the patient on no pressors 7 encephalopathy, likely secondary to toxic metabolic encephalopathy related to sepsis 8 morbid obesity 9 fibromyalgia 10 bronchial asthma mild intermittent in nature 11 rheumatoid arthritis 12 obstructive sleep apnea mild in severity with an AHI of 11 13 hypothyroidism 14 history of bariatric surgery for weight loss, involving a Azul-en-Y gastric bypass surgery 15 mild abnormal LFTs likely secondary to sepsis 16 degenerative arthritis Plan Keep the patient intensive care unit. Give the patient additional liter of normal saline and maintained on 125 mL an hour of normal saline infusion. Antibiotic coverage would include 2 g of Rocephin and IV aztreonam. Awaiting urine cultures. Blood cultures. Monitor fever pattern. Monitor renal function. Urology is on the case and the patient undergone the cystoscopy and right ureteral stent insertion. Monitor mental status. A triple lumen catheter was inserted. Haldol we use for altered mentation and agitation and will have a 24 hour sitter at the bedside. Change the Synthroid to IV 37.5 g on a daily basis, heparin subcu for DVT prophylaxis, IV Protonix, we'll continue to follow and make further recommendations based on her overall progress.
[2018-06-14] MEDS: HALOPERIDOL LACTATE 5 MG/ML 1 ML VIAL IVP PRN ×3 (15:55→21:56)
[2018-06-14 16:37] LABS: Glucose,Whole Blood 102 mg/dL (75-99)
[2018-06-14 16:46] LABS: Glucose,Whole Blood 109 mg/dL (75-99)
[2018-06-14] MEDS: HEPARIN SODIUM,PORCINE 5,000 UNIT/ML 1 ML VIAL SQ SCH (16:49)
[2018-06-14] MEDS: PANTOPRAZOLE 40 MG/10 ML VIAL IVP SCH (16:50)
[2018-06-14] MEDS ORDERED: Potassium Replacement Protocol 1 EACH MISC MISCELLANE PRN (17:51)
[2018-06-14] MEDS: POTASSIUM CHLORIDE 20 MEQ in WATER FOR INJECTION 1 100ML.BAG IVPB SCH ×2 (18:31→21:56)
--- NOTE | 2018-06-14 19:42 | PCN ---
PROCEDURE NOTE TRIPLE LUMEN CATHETER PLACEMENT: Indication Hemodynamic monitoring/Intravenous access. A time-out was completed verifying correct patient, procedure, site, positioning, and implant(s) or special equipment if applicable. The patient was placed in a dependent position appropriate for triple lumen catheter placement based on the vein to be cannulated. The patient's left neck was prepped and draped in sterile fashion. 1% Lidocaine was used to anesthetize the surrounding skin area. A triple lumen 9F Cordis catheter was introduced into the subclavian or internal jugular or common femoral vein using Seldinger technique. The catheter was threaded smoothly over the guide wire and appropriate blood return was obtained. Each lumen of the catheter was evacuated of air and flushed with sterile saline. The catheter was then sutured in place to the skin and a sterile dressing applied. Perfusion to the extremity distal to the point of catheter insertion was checked and found to be adequate. No bedside complications or bleeding. No pneumothorax on the followup chest x-ray. PREOPERATIVE DIAGNOSIS: Sepsis. POSTOPERATIVE DIAGNOSIS: Sepsis. MMODL / IJN: [id number] /
[2018-06-14] MEDS ORDERED: LEVOFLOXACIN 250MG-D5W PMX 250 MG in DEXTROSE/WATER 1 50ML.BAG IVPB SCH (23:00)
[2018-06-14] MEDS ORDERED: ACETAMINOPHEN IV (For NPO) 1,000 MG in EMPTY BAG 1 BAG IVPB PRN (23:02)
[2018-06-15] MEDS: MORPHINE SULFATE 4 MG/ML SYRINGE IV PRN ×5 (00:23→21:18)
[2018-06-15] MEDS: HEPARIN SODIUM,PORCINE 5,000 UNIT/ML 1 ML VIAL SQ SCH ×3 (00:24→16:30)
[2018-06-15] MEDS: CEFEPIME 2 GM in SODIUM CHLORIDE 0.9% 50 ML IVPB SCH ×2 (00:24→12:20)
[2018-06-15] MEDS ORDERED: VANCOMYCIN 1,250 MG in SODIUM CHLORIDE 0.9% 250 ML IVPB SCH (03:00)
[2018-06-15] MEDS: HALOPERIDOL LACTATE 5 MG/ML 1 ML VIAL IVP PRN ×2 (03:14→09:00)
[2018-06-15] MEDS: SODIUM CHLORIDE 0.9% 1,000 ML IV SCH ×4 (03:15→20:00)
[2018-06-15 04:42] LABS: Anisocytosis Slight; Basophils % (A) 0 %; Eosinophils % (A) 0 %; HCT 25.7 % (34.0-46.0); HGB 8.4 gm/dL (11.4-16.0); Hypochromasia Marked; Lymphocytes # (A) 0.3 k/uL (1.0-4.8); Lymphocytes % (A) 3 %; MCH 24.9 pg (25.0-35.0); MCHC 32.6 g/dL (31.0-37.0); MCV 76.4 fL (80.0-100.0); Mean Platelet Volume 7.7; Microcytosis Slight; Monocytes # (A) 0.2 k/uL (0-1.0); Monocytes % (A) 2 %; Neutrophils % (A) 94 %; Platelet Count 155 k/uL (150-450); RBC 3.36 m/uL (3.80-5.40); RDW 18.8 % (11.5-15.5); WBC 9.6 k/uL (3.8-10.6)
[2018-06-15 05:03] LABS: Calcium 8.3 mg/dL (8.4-10.2); Magnesium 1.9 mg/dL (1.6-2.3); Phosphorus 3.1 mg/dL (2.5-4.5); Potassium 3.8 mmol/L (3.5-5.1)
[2018-06-15] MEDS ORDERED: Magnesium Replacement Protocol 1 EACH MISC MISCELLANE PRN (06:27)
[2018-06-15] MEDS: MAGNESIUM SULFATE-D5W PMX 1 GM in DEXTROSE/WATER 1 100ML.BAG IVPB SCH ×2 (06:43→08:42)
[2018-06-15] MEDS: POTASSIUM CHLORIDE 10 MEQ in WATER FOR INJECTION 1 100ML.BAG IVPB SCH ×2 (06:43→08:41)
--- NOTE | 2018-06-15 07:04 | CONS ---
CONSULTATION DATE OF SERVICE: 06/14/2018 REASON FOR CONSULTATION: Sepsis. HISTORY OF PRESENT ILLNESS: The patient is a 62-year-old female who was brought into the ER last evening for evaluation of confusion and slurred speech. Apparently the patient's symptoms started the day prior to presentation to hospital. The patient's family noticed the patient had some confusion secondary to some medication and that was atypical for the patient. The patient apparently has been complaining of some abdominal pain and did have 7 episodes of nausea and vomiting, but no diarrhea. With these symptoms the patient was evaluated by the ER physician on arrival to the ER. The patient has been afebrile, subsequently spiked a fever of 104.4 degrees Fahrenheit. The patient did have elevated white count 23.1. Creatinine was 1.50. Urine with large leukocyte esterases with moderate bacteria. The patient did have a CT of abdomen and pelvis completed, which did show obstructing calculus at the right ureteropelvic junction with hydronephrosis. The patient subsequently has been evaluated by Urology and the patient was taken to the OR early this morning, status post cystoscopy with the right ureteral stent insertion. The patient has been admitted to the ICU. She was hypotensive requiring multiple fluid boluses, but did not require any pressor support. The patient has been treated with broad-spectrum antibiotic in form of Azactam 2 grams q.12 as well as ceftriaxone, Levaquin and vancomycin. The patient's blood culture was reported to be gram-negative bacilli. Hence, Infectious Disease was consulted for further recommendation regarding antibiotic therapy. Most of the information has been obtained from review of the chart and talking to nursing staff. The patient remains to be pleasantly confused, was unable to answer any question. REVIEW OF SYSTEMS: Could not be reliably obtained though the positive points have been mentioned in the HPI. PAST MEDICAL HISTORY: Rheumatoid arthritis, sleep apnea, hypothyroidism, osteoarthritis, pneumonia, gastroesophageal reflux disease, asthma, fibromyalgia, morbid obesity, and nephrolithiasis. PAST SURGICAL HISTORY: Right partial mastectomy, left wrist surgery, bilateral knee replacement, hemorrhoidectomy, cystoscopy and removal of kidney stone, left knee arthroscopy. SOCIAL HISTORY: Remote history of smoking. No drinking or drug use. FAMILY HISTORY: Mother with history of uterine cancer. ALLERGIES: Allergy to PENICILLIN. MEDICATIONS: Medications currently include the patient is on Tylenol, aztreonam 2 grams q.12. She is on Rocephin 2 grams daily, heparin, morphine sulfate, Narcan, Zofran, Protonix. Vanco has been discontinued. PHYSICAL EXAMINATION: On examination, blood pressure 152/70 with a pulse of 109, temperature of 98.3, T-max 104. She is 96% on room air. General description is an elderly female, lying in bed in no distress. No tachypnea or accessory muscle of respiration use. HEENT examination shows slight pallor. No scleral icterus. Oral mucous membrane dry. No pharyngeal erythema or thrush. NECK: Trachea central. No thyromegaly. LUNGS: Unlabored breathing, clear to auscultation anteriorly. HEART: S1, S2. Regular rate and rhythm. ABDOMEN: Soft, minimal tenderness. No guarding. No rigidity. EXTREMITIES: No edema of feet. SKIN EXAMINATION: No rashes. No masses palpable. NEUROLOGICALLY: The patient remains to be pleasantly confused, unable to complete a neuro exam. LABS: Hemoglobin is 8.1, white count 23.1. BUN of 26, creatinine 1.50. Potassium 3.4. Liver enzymes are mildly elevated. Urine was positive. Blood culture with gram-negative bacilli. DIAGNOSTIC IMPRESSION AND PLAN: 1. Patient with gram-negative sepsis in patient who did have fever of 104 degrees Fahrenheit. The patient did have elevated white count of 23,000, tachycardia, mild renal insufficiency and significantly positive UA and evidence of right-sided hydronephrosis likely the source of this bacteremia and sepsis. No other abnormality was noticed on abdominal examination or other clinical focus of infection. 2. The patient to have a PENICILLIN allergy limiting the number of antibiotics that could be safely used. However, seemed to have tolerated Rocephin without any problem. PLAN: 1. We will discontinue the aztreonam as well as Rocephin. No need for double beta lactam coverage. 2. We will start the patient on cefepime 2 grams q.12 that should cover both the community-acquired pathogen as well as resistant gram-negative such as Pseudomonas. 3. IV fluid. 4. We will follow on her clinical condition as well as cultures to further adjust medication if needed. Thank you for this consultation. We will follow this patient along with you. MMODL / IJN: [id number] /
[2018-06-15] MEDS: PANTOPRAZOLE 40 MG/10 ML VIAL IVP SCH (08:41)
[2018-06-15 14:18] LABS: Hemoglobin A1C 6.4 % (4.0-6.0)
--- NOTE | 2018-06-15 15:39 | P.PN ---
Subjective Progress Note Date: 06/15/18 62-year-old obese female patient with known history of nephrolithiasis. The patient presented to the hospital because of 3 day history of right flank pain associated with nausea vomiting fever and altered mentation. Her initial UA was essentially not suggestive of an underlying UTI. CAT scan of the abdomen and pelvis was done and showed right kidney hydronephrosis with perinephric stranding and a 12 mm right UPJ calculus. Based on that, the patient was taken to the operating room and the patient underwent cystoscopy and right ureteral stent insertion for right kidney pyelonephritis and right UPJ calculus. At this point in time, the patient is in the intensive care unit. She is identified to be septic and she currently has a gram-negative bacillus in her blood which is probably of a urinary source. I looked back in her old cultures in a seated the patient was infected with E. coli that was resistant to quinolones back in September 2017. Based on that, I give the patient 2 g of IV Rocephin and I put her on aztreonam IV. I also inserted a triple lumen catheter in the left IJ. The patient is being resuscitated IV fluids pH was given a liter of normal saline in the recovery and she will receive another liter here in the ICU. Her white cell count is at 12.7. She has mild lactic acidosis is improving and it lactic acid level is down to 1.3 from a baseline of 3.0. She is also an acute kidney injury. Creatinine is up to 1.5 from a normal baseline. LFTs are mildly abnormal also. This is probably due to underlying sepsis. The patient is a bit restless. She is confused. She is encephalopathic probably related to underlying sepsis. She has not required pressors. No significant tachycardia and her cardiac rhythm is sinus at this point in time. On today's evaluation of 06/15/2018, I'm seeing this patient for a follow-up. The patient is in the hospital for obstructive uropathy, pyelonephritis involving the right post insertion of a double J-tube and septic secondary to UTI. The patient's urine is showing gram-negative bacillus. The patient's blood is showing gram-negative bacillus. The patient was seen by ID yesterday. The patient was switched IV cefepime. Hemodynamically stable. Producing adequate amount of urine output. She is in a positive balance of 6 L over the past 24 hours. Creatinine is down to 1.3. She is producing adequate amount of urine output. Neurologically, she is still encephalopathic patient is not agitated. She can recognize her family members state she can answer some simple questions and commands however other times it is obvious that the patient is confused and she continues to repeat same sentences and doesn't make any sense. No focal neurological deficit and the patient is moving all 4 extremities without any limitation. No headaches. No neck stiffness. CAT scan of the brain done earlier showed no acute abnormalities. ID is on the case. Urology is on the case. Objective - Vital Signs Vital signs: Vital Signs Temp 98.1 F 06/15/18 12:00 Pulse 106 H 06/15/18 15:00 Resp 22 06/15/18 15:26 BP 146/85 06/15/18 15:00 Pulse Ox 95 06/15/18 15:00 Intake & Output 06/14/18 06/15/18 06/15/18 18:59 06:59 18:59 Intake Total 4550 2600 1450 Output Total 420 640 670 Balance 4130 1960 780 Weight 133.8 kg 133.8 kg Intake: IV 4450 2600 1450 ACETAMINOPHEN IV (For NPO 100 ) 1,000 mg In Empty Bag 1 bag @ 400 mls/hr IVPB ONCE STA Rx#:[id number] Aztreonam 2 gm In Sodium 100 50 Chloride 0.9% 100 ml @ 100 mls/hr IVPB Q12HR [facility] Rx#:[id number] Cefepime 2 gm In Sodium 50 Chloride 0.9% 50 ml @ 100 mls/hr IVPB Q12H [facility] Rx# :[id number] Magnesium Sulfate-D5w Pmx 100 100 1 gm In Dextrose/Water 1 100ml.bag @ 100 mls/hr IVPB Q1H [facility] Rx#: [id number] Potassium Chloride 20 meq 300 100 In Water For Injection 1 100ml.bag @ 50 mls/hr IVPB Q2H [facility] Rx#: [id number] Sodium Chloride 0.9% 1, 450 1950 1200 000 ml @ 150 mls/hr IV . Q6H40M [facility] Rx#:[id number] Sodium Chloride 0.9% 1, 1000 000 ml @ 999 mls/hr IV . Q1H1M [facility] Rx#:[id number] Intake, IV Titration 100 Amount Potassium Chloride 20 meq 100 In Water For Injection 1 100ml.bag @ 50 mls/hr IVPB Q2H [facility] Rx#: [id number] Output: Urine 420 640 670 Estimated Blood Loss 0 Other: Voiding Method Indwelling Catheter Indwelling Catheter Indwelling Catheter - Exam Obese, comfortable, confused, somewhat restless in bed Head exam was generally normal. There was no scleral icterus or corneal arcus. Mucous membranes were moist. Neck was supple and without jugular venous distension, thyromegaly, or carotid bruits. Carotids were easily palpable bilaterally. There was no adenopathy. The patient is a left IJ triple lumen catheter in place Lungs were clear to auscultation and percussion, and with normal diaphragmatic excursion. No wheezes or rales were noted. Cardiac exam revealed the PMI to be normally situated and sized. The rhythm was regular and no extrasystoles were noted during several minutes of auscultation. The first and second heart sounds were normal and physiologic splitting of the second heart sound was noted. There were no murmurs, rubs, clicks, or gallops. Abdomen is obese soft nontender no direct tenderness, no rebound tensile guarding, there is some mild right CVA angle tenderness improved compared to yesterday. Examination of the extremities revealed easily palpable radial, femoral and pedal pulses. There was no cyanosis, clubbing or edema. Examination of the skin revealed no evidence of significant rashes, suspicious appearing nevi or other concerning lesions. Neurologic ,confused, no cranial nerve deficits, moving all 4 extremities without any limitation - Labs CBC & Chem 7: 06/15/18 04:20 06/15/18 04:20 Labs: Abnormal Lab Results - Last 24 Hours (Table) 06/14/18 06/14/18 06/15/18 Range/Units 11:00 13:46 04:20 RBC 3.36 L (3.80-5.40) m/uL Hgb 8.4 L (11.4-16.0) gm/dL Hct 25.7 L (34.0-46.0) % MCV 76.4 L (80.0-100.0) fL MCH 24.9 L (25.0-35.0) pg RDW 18.8 H (11.5-15.5) % Neutrophils # 9.0 H (1.3-7.7) k/uL Lymphocytes # 0.3 L (1.0-4.8) k/uL Chloride (98-107) mmol/L BUN (7-17) mg/dL Creatinine (0.52-1.04) mg/dL POC Glucose (mg/dL) 102 H 109 H (75-99) mg/dL Hemoglobin A1c (4.0-6.0) % Calcium (8.4-10.2) mg/dL 06/15/18 06/15/18 Range/Units 04:20 04:20 RBC (3.80-5.40) m/uL Hgb (11.4-16.0) gm/dL Hct (34.0-46.0) % MCV (80.0-100.0) fL MCH (25.0-35.0) pg RDW (11.5-15.5) % Neutrophils # (1.3-7.7) k/uL Lymphocytes # (1.0-4.8) k/uL Chloride 111 H (98-107) mmol/L BUN 28 H (7-17) mg/dL Creatinine 1.30 H (0.52-1.04) mg/dL POC Glucose (mg/dL) (75-99) mg/dL Hemoglobin A1c 6.4 H (4.0-6.0) % Calcium 8.3 L (8.4-10.2) mg/dL Microbiology - Last 24 Hours (Table) 06/14/18 00:00 Urine Culture - Preliminary Urine,Catheterized Gram Neg Bacilli 06/13/18 22:40 Blood Culture - Final Blood 06/13/18 22:40 Blood Culture Gram Stain - Preliminary Blood Blood Culture - Preliminary Gram Neg Bacilli 06/13/18 22:40 Blood Culture Gram Stain - Preliminary Blood Blood Culture - Preliminary Gram Neg Bacilli 06/14/18 07:15 Urine Culture - Preliminary Urine,Ureter Assessment and Plan Plan: Assessment 1 acute gram-negative sepsis secondary to right kidney pyelonephritis. The patient has gram-negative bacillus in the urine and in the blood and currently the patient is on IV cefepime. The patient is on no pressors. The patient was aggressively resuscitated IV fluids and she is in a +6 L fluid balance. 2 acute right kidney pyelonephritis/right UPJ calculus, post cystoscopy and right ureteral stent insertion 3 acute kidney injury secondary to above, improving 4 nephrolithiasis, history of 5 acute lactic acidosis secondary to above, improving 6 hypotension secondary to sepsis, resuscitated IV fluids and currently the patient on no pressors. The patient is hemodynamically stable. 7 encephalopathy, likely secondary to toxic metabolic encephalopathy related to sepsis, continues to have some altered mentation 8 morbid obesity 9 fibromyalgia 10 bronchial asthma mild intermittent in nature 11 rheumatoid arthritis 12 obstructive sleep apnea mild in severity with an AHI of 11 13 hypothyroidism 14 history of bariatric surgery for weight loss, involving a Azul-en-Y gastric bypass surgery 15 mild abnormal LFTs likely secondary to sepsis 16 degenerative arthritis Plan Keep the patient intensive care unit. Continue IV fluids. Continue IV antibiotics. Monitor mentation. Monitor the results of the blood and urine culture. Further antibiotic adjustment will be done based on the results of the culture. For now the patient is gradually improving. She is still having some metabolic encephalopathy at for the most part she is hemodynamically stable and she is demonstrating improvement in renal function with a creatinine being down to 1.3. We'll continue to follow. She'll be kept in the ICU follow 24 hours.
--- NOTE | 2018-06-15 18:55 | P.PN ---
Progress Note - Text Progress Note Date: 06/15/18 Mrs. Platt's condition is much improved. She is alert and oriented 3, and in good spirits. She reports back pain, as well as fatigue. The Esposito catheter is in place and patent. Blood and urine cultures have shown gram-negative bacilli. She will continue to receive cefepime, pending the final culture results.
[2018-06-15] MEDS ORDERED: ACETAMINOPHEN IV (For NPO) 1,000 MG in EMPTY BAG 1 BAG IVPB PRN (18:57)
--- NOTE | 2018-06-15 19:20 | XR ---
EXAMINATION: XR chest 1V portable DATE AND TIME: 06/15/2018 7:07 PM CLINICAL INDICATION: shortness of breath TECHNIQUE: AP upright portable COMPARISON: 06/14/18 at 3:00 PM FINDINGS: Left IJ central line tip superimposed over the distal SVC. EKG leads noted. There is interval worsening in the lung inflation pattern when compared the prior study, right greate r than left. There is a fine reticular pattern of increased density silhouetting the pulmonary vascul ar bilaterally, with areas of confluent opacity in the right mid and lower lung zone and a suggestion of a posteriorly dependent pleural effusion. No pneumothorax or other abnormal gas collection. Mildly enlarged cardiac silhouette redemonstrated. Widened mediastinum noted, appearing mildly more p rominent on the current study but this is likely projectional. IMPRESSION: INTERVAL WORSENING IN THE LUNG INFLATION PATTERN. SUSPECT INTERSTITIAL AND ALVEOLAR PHASE PULMONARY E WILLIAM ETIOLOGY WITH RIGHT PLEURAL EFFUSION; THIS RADIOGRAPHIC IMPRESSION ASSUMES A CLINICAL EXCLUSION OF RIGHT SIDED PNEUMONIA.
[2018-06-15] MEDS ORDERED: FUROSEMIDE 10 MG/ML 4 ML VIAL IV STA (19:28)
[2018-06-15] MEDS: PILOCARPINE 5 MG TAB PO SCH (21:19)
[2018-06-15] MEDS: VENLAFAXINE HCL 75 MG TAB PO SCH (21:19)
[2018-06-15] MEDS: AMITRIPTYLINE HCL 25 MG TAB PO SCH (21:20)
--- NOTE | 2018-06-15 23:07 | PN ---
PROGRESS NOTE DATE OF SERVICE: 06/15/2018 REASON FOR FOLLOWUP: Gram-negative sepsis. HISTORY OF PRESENT ILLNESS: The patient is afebrile. She seems to be slightly more awake and alert today, breathing comfortably. No chest pain or shortness of breath or cough. No diarrhea. PHYSICAL EXAMINATION: Blood pressure is 140/77 with a pulse of 102, temperature 98.2. She is 95% on room air. General description is a middle-aged female lying in bed in no distress. HEENT EXAMINATION: Pallor. No scleral icterus. Oral mucosa membrane is dry. LUNGS: Unlabored breathing. Clear to auscultation anteriorly. HEART: S1, S2. Regular rate and rhythm. ABDOMEN: Soft. No tenderness. LABS: Hemoglobin 8.4, white count 9.6, BUN of 28, creatinine 1.30. Blood and urine culture with an E coli that is sensitive to ceftriaxone, resistant to quinolones. DIAGNOSTIC IMPRESSION AND PLAN: Patient with Escherichia coli bacteremia secondary to urinary source in a patient who did have complicated urinary tract infection with obstructed kidney, status post ureteral stent placement. Antibiotic will be switched to Rocephin 2 grams daily. Family was present at the bedside. Their questions and concerns were answered. MMODL / IJN: [id number] /
[2018-06-16] MEDS: cefTRIAXone IN SWFI 2,000 MG/20 ML SYRINGE IVP SCH (02:09)
[2018-06-16] MEDS: HEPARIN SODIUM,PORCINE 5,000 UNIT/ML 1 ML VIAL SQ SCH ×3 (02:12→16:59)
[2018-06-16] MEDS: MORPHINE SULFATE 4 MG/ML SYRINGE IV PRN ×5 (04:01→18:56)
[2018-06-16 04:29] LABS: Anisocytosis Slight; Basophils % (A) 0 %; Eosinophils % (A) 0 %; HCT 30.3 % (34.0-46.0); HGB 8.7 gm/dL (11.4-16.0); Hypochromasia Marked; Lymphocytes # (A) 0.5 k/uL (1.0-4.8); Lymphocytes % (A) 7 %; MCH 22.1 pg (25.0-35.0); MCHC 28.8 g/dL (31.0-37.0); MCV 76.6 fL (80.0-100.0); Mean Platelet Volume 7.6; Microcytosis Slight; Monocytes # (A) 0.2 k/uL (0-1.0); Monocytes % (A) 3 %; Neutrophils # (A) 6.8 k/uL (1.3-7.7); Neutrophils % (A) 88 %; Platelet Count 124 k/uL (150-450); RBC 3.96 m/uL (3.80-5.40); RDW 18.1 % (11.5-15.5); WBC 7.7 k/uL (3.8-10.6)
[2018-06-16 04:56] LABS: Calcium 8.1 mg/dL (8.4-10.2); Magnesium 2.1 mg/dL (1.6-2.3); Phosphorus 2.4 mg/dL (2.5-4.5); Potassium 3.5 mmol/L (3.5-5.1)
--- NOTE | 2018-06-16 06:53 | XR ---
EXAMINATION TYPE: XR chest 1V portable DATE OF EXAM: 06/16/2018 CLINICAL HISTORY: Difficulty breathing progress study. TECHNIQUE: Single AP portable upright view of the chest is obtained. COMPARISON: Chest x-ray from one day earlier and older studies. FINDINGS: Stable appearance of left internal jugular central venous catheter. There is persisting ca rdiomegaly with central vascular congestion. There is persistent right basilar opacity consistent wit h atelectasis and/or infiltrate. There is more patchy left basilar atelectasis. Upper lungs are clear without pneumothorax. Osseous structures are intact. IMPRESSION: Persistent cardiomegaly with central vascular congestion, there is persistent but improvi ng right basilar atelectasis and/or infiltrate noted.
[2018-06-16] MEDS: LEVOTHYROXINE 75 MCG TAB PO SCH (06:56)
[2018-06-16] MEDS: POTASSIUM CHLORIDE 10 MEQ in WATER FOR INJECTION 1 100ML.BAG IVPB SCH ×4 (08:15→14:25)
--- NOTE | 2018-06-16 08:49 | P.PN ---
Subjective This is a pleasant 62 years old female with past medical history of kidney stone , common femoral artery, GERD, pneumonia, rheumatoid arthritis, sleep apnea on BiPAP/CPAP, previous bypass surgery and iron deficiency anemia. She had EGD/ colonoscopy about 20 years ago for an expected weight loss which was unremarkable. Patient presents with septic like picture secondary to UTI and kidney stone. Patient was confused and It appears that she could not provide information. Information was taken from the daughter Ms. Ugarte at bedside, as per her, patient was complaining of from abdominal pain and repeated nausea vomiting, and one-day duration and next morning patient was found unresponsive and she brought to the emergency room daughter also states patient complaining of from mouth infection in the last few days. Interim patient was found to have pulmonary tract infection, with kidney stones and hydronephrosis. Computed tomography scan showed right hydronephrosis with perinephric stranding due to a 12 mm right UPJ calculus. Patient had 6-Tristanian double-J ureteral stent placed in the right ureter after the stone was removed through the cystoscopy by the urologist. When I saw the patient this morning patient was lying in bed moaning but does not follow commands. Her systolic blood pressure was running in the 90-100, last year was around 150. Patient received about 5 L of fluid already had several antibiotics, of note patient is ALLERGIC to penicillin however she received IV vancomycin. We give her a bolus of 1 L. Repeat All labs, and start her on aztreonam. With ICU and ID consults Blood culture came back positive for gram negative bacilli 06/15/2018 pt is more awake this morning, her BP is improved (SBP 150s) pt complains from back pain , pulmonary/critical care team and ID team are following the pt . she remains on abx, and her leukocytosis is improving , BC growing gram negative bacilli , most likely source is the urine, CXR: worsening pulmonary congestion as per radiology report. pt breathing is not labored and her ox sat is 95% on room air, urology follow up is appreciated . The Esposito catheter is in place and patent. family were at bed side and all their questions were answered. Objective - Vital Signs Vital signs: Vital Signs Temp 98.2 F 06/15/18 19:00 Pulse 107 H 06/15/18 22:00 Resp 22 06/15/18 22:00 BP 128/74 06/15/18 22:00 Pulse Ox 92 L 06/15/18 22:00 Intake & Output 06/15/18 06/15/18 06/16/18 06:59 18:59 06:59 Intake Total 2600 1950 40 Output Total 640 800 485 Balance 1959 1150 -445 Weight 133.8 kg 133.8 kg Intake: IV 2600 1950 40 ACETAMINOPHEN IV (For NPO 100 ) 1,000 mg In Empty Bag 1 bag @ 400 mls/hr IVPB ONCE STA Rx#:[id number] Aztreonam 2 gm In Sodium 100 50 Chloride 0.9% 100 ml @ 100 mls/hr IVPB Q12HR [facility] Rx#:[id number] Cefepime 2 gm In Sodium 50 Chloride 0.9% 50 ml @ 100 mls/hr IVPB Q12H [facility] Rx# :[id number] Magnesium Sulfate-D5w Pmx 100 100 1 gm In Dextrose/Water 1 100ml.bag @ 100 mls/hr IVPB Q1H [facility] Rx#: [id number] Potassium Chloride 20 meq 300 100 In Water For Injection 1 100ml.bag @ 50 mls/hr IVPB Q2H [facility] Rx#: [id number] Sodium Chloride 0.9% 1, 40 000 ml @ 10 mls/hr IV . Q24H [facility] Rx#:[id number] Sodium Chloride 0.9% 1, 1950 1700 000 ml @ 150 mls/hr IV . Q6H40M [facility] Rx#:[id number] Output: Urine 640 800 485 Other: Voiding Method Indwelling Catheter Indwelling Catheter Indwelling Catheter - Exam GENERAL: The patient is confused and not responsive, she morning and answering particularly known, no more okay, HEENT: Pupils are round and equally reacting to light. EOMI. No scleral icterus. No conjunctival pallor. Normocephalic, atraumatic. No pharyngeal erythema. No thyromegaly. CARDIOVASCULAR: S1 and S2 present. No murmurs, rubs, or gallops. PULMONARY: Chest is clear to auscultation, no wheezing or crackles. left upper central line is in place, no surrounding erythema ABDOMEN: Soft, nontender, nondistended, normoactive bowel sounds. No palpable organomegaly. MUSCULOSKELETAL: No joint swelling or deformity. EXTREMITIES: No cyanosis, clubbing, or pedal edema. NEUROLOGICAL: Gross neurological examination did not reveal any focal deficits. SKIN: No rashes. - Labs CBC & Chem 7: 06/16/18 04:20 06/16/18 04:20 Labs: Abnormal Lab Results - Last 24 Hours (Table) 06/15/18 06/15/18 06/15/18 Range/Units 04:20 04:20 04:20 RBC 3.36 L (3.80-5.40) m/uL Hgb 8.4 L (11.4-16.0) gm/dL Hct 25.7 L (34.0-46.0) % MCV 76.4 L (80.0-100.0) fL MCH 24.9 L (25.0-35.0) pg RDW 18.8 H (11.5-15.5) % Neutrophils # 9.0 H (1.3-7.7) k/uL Lymphocytes # 0.3 L (1.0-4.8) k/uL Chloride 111 H (98-107) mmol/L BUN 28 H (7-17) mg/dL Creatinine 1.30 H (0.52-1.04) mg/dL Hemoglobin A1c 6.4 H (4.0-6.0) % Calcium 8.3 L (8.4-10.2) mg/dL Microbiology - Last 24 Hours (Table) 06/13/18 22:40 Blood Culture Gram Stain - Final Blood Blood Culture - Final Escherichia coli 06/13/18 22:40 Blood Culture Gram Stain - Final Blood Blood Culture - Final Escherichia coli 06/14/18 07:15 Urine Culture - Preliminary Urine,Ureter Gram Neg Bacilli 06/14/18 00:00 Urine Culture - Preliminary Urine,Catheterized Gram Neg Bacilli 06/13/18 22:40 Blood Culture - Final Blood Assessment and Plan Assessment: Septic shock/sever sepsis Gram-negative septicemia Acute Right pyelonephritis Right hydronephrosis, secondary to right kidney stone, status post stone removal by cystoscopy and stent placement by urologist. History of anemia History of his sleep apnea, on BiPAP History of GERD History of asthma Plan: 62 years old female with past medical history of kidney stone, presents with acute right pyelonephritis with septic shock, secondary to obstructing right kidney calculus with hydronephrosis. Status post stone removal and stent placement. Admitted the patient to the ICU. Continue with same and treatment. Start antibiotics. follow-up labs and vitals. Pulmonary/critical care and infectious disease consult. Continue with IV fluids. DVT and GI prophylaxis. Further recommendations based on the clinical course of the patient. Patient is full code as per Daughter Mrs. Duong at bedside
[2018-06-16] MEDS: PANTOPRAZOLE 40 MG/10 ML VIAL IVP SCH (09:49)
[2018-06-16] MEDS: VENLAFAXINE HCL 75 MG TAB PO SCH ×2 (09:49→20:19)
[2018-06-16] MEDS: PILOCARPINE 5 MG TAB PO SCH ×2 (09:51→20:19)
[2018-06-16] MEDS ORDERED: Phosphorus Replacement Protoco 1 EACH MISC MISCELLANE PRN (10:03)
[2018-06-16] MEDS ORDERED: SODIUM PHOSPHATE 10 MMOL in SODIUM CHLORIDE 0.9% 100 ML IVPB ONE (10:30)
--- NOTE | 2018-06-16 13:47 | P.PN ---
Subjective Progress Note Date: 06/16/18 62-year-old obese female patient with known history of nephrolithiasis. The patient presented to the hospital because of 3 day history of right flank pain associated with nausea vomiting fever and altered mentation. Her initial UA was essentially not suggestive of an underlying UTI. CAT scan of the abdomen and pelvis was done and showed right kidney hydronephrosis with perinephric stranding and a 12 mm right UPJ calculus. Based on that, the patient was taken to the operating room and the patient underwent cystoscopy and right ureteral stent insertion for right kidney pyelonephritis and right UPJ calculus. At this point in time, the patient is in the intensive care unit. She is identified to be septic and she currently has a gram-negative bacillus in her blood which is probably of a urinary source. I looked back in her old cultures in a seated the patient was infected with E. coli that was resistant to quinolones back in September 2017. Based on that, I give the patient 2 g of IV Rocephin and I put her on aztreonam IV. I also inserted a triple lumen catheter in the left IJ. The patient is being resuscitated IV fluids pH was given a liter of normal saline in the recovery and she will receive another liter here in the ICU. Her white cell count is at 12.7. She has mild lactic acidosis is improving and it lactic acid level is down to 1.3 from a baseline of 3.0. She is also an acute kidney injury. Creatinine is up to 1.5 from a normal baseline. LFTs are mildly abnormal also. This is probably due to underlying sepsis. The patient is a bit restless. She is confused. She is encephalopathic probably related to underlying sepsis. She has not required pressors. No significant tachycardia and her cardiac rhythm is sinus at this point in time. On today's evaluation of 06/15/2018, I'm seeing this patient for a follow-up. The patient is in the hospital for obstructive uropathy, pyelonephritis involving the right post insertion of a double J-tube and septic secondary to UTI. The patient's urine is showing gram-negative bacillus. The patient's blood is showing gram-negative bacillus. The patient was seen by ID yesterday. The patient was switched IV cefepime. Hemodynamically stable. Producing adequate amount of urine output. She is in a positive balance of 6 L over the past 24 hours. Creatinine is down to 1.3. She is producing adequate amount of urine output. Neurologically, she is still encephalopathic patient is not agitated. She can recognize her family members state she can answer some simple questions and commands however other times it is obvious that the patient is confused and she continues to repeat same sentences and doesn't make any sense. No focal neurological deficit and the patient is moving all 4 extremities without any limitation. No headaches. No neck stiffness. CAT scan of the brain done earlier showed no acute abnormalities. ID is on the case. Urology is on the case. On 06/16/2018, patient is awake alert and responsive and her metabolic encephalopathy has recovered. She is moving all 4 extremities and was able to sit up on a chair. She is hemodynamically stable. No hypotension. No fever or chills. She has E. coli sepsis secondary to a complicated urinary tract infection. She came in with acute pyelonephritis and septicemia and she had a double-J stent insertion on the right. She is on IV Rocephin for now 2 g every 24 hours. No significant issues. Overnight she became a bit short of breath and hypoxic. She was in some degree of fluid overload. She was given IV Lasix. IV fluids were cut down to KVO. She is tolerating diet. No nausea. No vomiting. No emesis. No other complaints otherwise. Renal function is normalized. Objective - Vital Signs Vital signs: Vital Signs Temp 97.5 F L 06/16/18 08:00 Pulse 105 H 06/16/18 13:00 Resp 27 H 06/16/18 13:00 BP 140/75 06/16/18 13:00 Pulse Ox 93 L 06/16/18 13:00 Intake & Output 06/15/18 06/16/18 06/16/18 18:59 06:59 18:59 Intake Total 1950 120 720 Output Total 800 1945 420 Balance 1150 -1825 300 Weight 133.8 kg 134.7 kg Intake: IV 1950 120 220 Aztreonam 2 gm In Sodium 50 Chloride 0.9% 100 ml @ 100 mls/hr IVPB Q12HR [facility] Rx#:[id number] Magnesium Sulfate-D5w Pmx 100 1 gm In Dextrose/Water 1 100ml.bag @ 100 mls/hr IVPB Q1H [facility] Rx#: [id number] Potassium Chloride 20 meq 100 In Water For Injection 1 100ml.bag @ 50 mls/hr IVPB Q2H [facility] Rx#: [id number] Sodium Chloride 0.9% 1, 120 160 000 ml @ 10 mls/hr IV . Q24H [facility] Rx#:[id number] Sodium Chloride 0.9% 1, 1700 60 000 ml @ 150 mls/hr IV . Q6H40M [facility] Rx#:[id number] Intake, IV Titration 400 Amount Potassium Chloride 10 meq 300 In Water For Injection 1 100ml.bag @ 100 mls/hr IVPB Q1HR [facility] Rx#: [id number] Sodium Phosphate 10 mmol 100 In Sodium Chloride 0.9% 100 ml @ 50 mls/hr IVPB ONCE ONE Rx#:[id number] Oral 100 Output: Urine 800 1945 420 Other: Voiding Method Indwelling Catheter Indwelling Catheter - Exam Obese, comfortable, not in any form of respiratory distress at this point in time. Head exam was generally normal. There was no scleral icterus or corneal arcus. Mucous membranes were moist. Neck was supple and without jugular venous distension, thyromegaly, or carotid bruits. Carotids were easily palpable bilaterally. There was no adenopathy. The patient is a left IJ triple lumen catheter in place Lungs were clear to auscultation and percussion, and with normal diaphragmatic excursion. No wheezes or rales were noted. Cardiac exam revealed the PMI to be normally situated and sized. The rhythm was regular and no extrasystoles were noted during several minutes of auscultation. The first and second heart sounds were normal and physiologic splitting of the second heart sound was noted. There were no murmurs, rubs, clicks, or gallops. Abdomen is obese soft nontender no direct tenderness, no rebound tensile guarding, there is some mild right CVA angle tenderness improved compared to yesterday. Examination of the extremities revealed easily palpable radial, femoral and pedal pulses. There was no cyanosis, clubbing or edema. Examination of the skin revealed no evidence of significant rashes, suspicious appearing nevi or other concerning lesions. Neurologic , alert and awake and the patient is following commands and answering questions appropriately. - Labs CBC & Chem 7: 06/16/18 04:20 06/16/18 04:20 Labs: Abnormal Lab Results - Last 24 Hours (Table) 06/15/18 06/16/18 06/16/18 Range/Units 04:20 04:20 04:20 Hgb 8.7 L (11.4-16.0) gm/dL Hct 30.3 L (34.0-46.0) % MCV 76.6 L (80.0-100.0) fL MCH 22.1 L (25.0-35.0) pg MCHC 28.8 L (31.0-37.0) g/dL RDW 18.1 H (11.5-15.5) % Plt Count 124 L (150-450) k/uL Lymphocytes # 0.5 L (1.0-4.8) k/uL Sodium 136 L (137-145) mmol/L BUN 22 H (7-17) mg/dL Glucose 108 H (74-99) mg/dL Hemoglobin A1c 6.4 H (4.0-6.0) % Calcium 8.1 L (8.4-10.2) mg/dL Phosphorus 2.4 L (2.5-4.5) mg/dL Microbiology - Last 24 Hours (Table) 06/14/18 00:00 Urine Culture - Final Urine,Catheterized Escherichia coli 06/13/18 22:40 Blood Culture Gram Stain - Final Blood Blood Culture - Final Escherichia coli 06/13/18 22:40 Blood Culture Gram Stain - Final Blood Blood Culture - Final Escherichia coli 06/14/18 07:15 Urine Culture - Preliminary Urine,Ureter Gram Neg Bacilli Assessment and Plan Plan: Assessment 1 acute E. coli sepsis secondary to right kidney pyelonephritis. Patient is hemodynamically stable. The patient is on IV Rocephin. 2 acute right kidney pyelonephritis/right UPJ calculus, post cystoscopy and right ureteral stent insertion 3 acute kidney injury secondary to above, improving, and the renal function is normalized 4 nephrolithiasis, history of 5 acute lactic acidosis secondary to above, improving 6 hypotension secondary to sepsis, recovered 7 encephalopathy, likely secondary to toxic metabolic encephalopathy related to sepsis, recovered 8 morbid obesity 9 fibromyalgia 10 bronchial asthma mild intermittent in nature 11 rheumatoid arthritis 12 obstructive sleep apnea mild in severity with an AHI of 11 13 hypothyroidism 14 history of bariatric surgery for weight loss, involving a Azul-en-Y gastric bypass surgery 15 mild abnormal LFTs likely secondary to sepsis 16 degenerative arthritis Plan The patient is stable. Continue Rocephin. Chest on this patient out of the intensive care unit today. Increase in level of activity as tolerated. Advance diet. We'll follow.
--- NOTE | 2018-06-16 16:49 | P.PN ---
Progress Note - Text Progress Note Date: 06/16/18 Mrs. Platt is afebrile. Her WBC count has normalized. She is feeling much better. Urine and blood cultures are showing E. coli. She is being transferred out of the ICU today. From a urologic standpoint, her condition is stable. She may be discharged home on oral antibiotics once her condition improves to that point, and she will follow up with me in the office in 1-2 weeks. Her calculus is radiopaque. At the time of her appointment, urinalysis will be performed to confirm resolution of her infection and will then be determined whether to treat her calculus with ESWL or ureteroscopy with laser lithotripsy.
[2018-06-16] MEDS ORDERED: ACETAMINOPHEN TAB 325 MG TAB PO PRN (17:24)
--- NOTE | 2018-06-16 17:56 | PN ---
PROGRESS NOTE DATE OF SERVICE: 06/16/2018. REASON FOR FOLLOWUP: E coli bacteremia secondary to urinary source with complicated UTI. INTERVAL HISTORY: The patient is afebrile. She is more awake and alert. She is breathing comfortably. Denies any chest pain, shortness of breath or cough. No nausea, vomiting, or any diarrhea. EXAMINATION: Blood pressure 140/75 with a pulse of 105, temperature 98. She is 93% on room air. General description is a middle-aged female lying in bed in no distress. HEENT examination, pallor, no scleral icterus. Oral mucosa is moist. Lungs unlabored breathing. Clear to auscultation anteriorly. Heart S1, S2. Regular rate and rhythm. ABDOMEN: Soft. No tenderness. LABS: Hemoglobin 8.2, white count 7.7, BUN of 22, creatinine 1.0. DIAGNOSTIC IMPRESSION AND PLAN: Patient with Escherichia coli bacteremia secondary to complicated urinary tract infection in a patient who did have hydronephrosis status post cystoscopy and ureteral stent placement. Patient is on Rocephin 2 g daily to continue as the patient continues to improve, hopefully finish therapy with oral antibiotics. Continue supportive care. MMODL / IJN: [id number] /
[2018-06-16] MEDS: SODIUM CHLORIDE 0.9% 1,000 ML IV SCH (20:18)
[2018-06-16] MEDS: AMITRIPTYLINE HCL 25 MG TAB PO SCH (20:18)
[2018-06-17] MEDS: HEPARIN SODIUM,PORCINE 5,000 UNIT/ML 1 ML VIAL SQ SCH ×3 (01:04→18:55)
[2018-06-17] MEDS: MORPHINE SULFATE 4 MG/ML SYRINGE IV PRN ×2 (01:04→05:42)
[2018-06-17] MEDS: cefTRIAXone IN SWFI 2,000 MG/20 ML SYRINGE IVP SCH (01:05)
[2018-06-17 04:59] LABS: Anisocytosis Slight; Basophils % (A) 0 %; Eosinophils # (A) 0.1 k/uL (0-0.7); Eosinophils % (A) 1 %; HCT 29.2 % (34.0-46.0); HGB 8.5 gm/dL (11.4-16.0); Hypochromasia Marked; Lymphocytes # (A) 0.5 k/uL (1.0-4.8); Lymphocytes % (A) 9 %; MCH 22.3 pg (25.0-35.0); Mean Platelet Volume 7.6; Microcytosis Slight; Monocytes # (A) 0.4 k/uL (0-1.0); Monocytes % (A) 6 %; Neutrophils # (A) 5.1 k/uL (1.3-7.7); Neutrophils % (A) 82 %; Platelet Count 114 k/uL (150-450); RDW 18.4 % (11.5-15.5); WBC 6.2 k/uL (3.8-10.6)
[2018-06-17 05:19] LABS: Anion Gap 6 mmol/L; Blood Urea Nitrogen 19 mg/dL (7-17); Carbon Dioxide 23 mmol/L (22-30); Chloride 105 mmol/L (98-107); Glucose 103 mg/dL (74-99); Magnesium 2.1 mg/dL (1.6-2.3); Phosphorus 2.2 mg/dL (2.5-4.5); Potassium 3.9 mmol/L (3.5-5.1); Sodium 134 mmol/L (137-145)
[2018-06-17] MEDS: LEVOTHYROXINE 75 MCG TAB PO SCH (05:42)
[2018-06-17] MEDS ORDERED: POTASSIUM CHLORIDE ER 20 MEQ TAB.ER PO SCH (06:00)
--- NOTE | 2018-06-17 06:53 | XR ---
EXAMINATION TYPE: XR chest 1V portable DATE OF EXAM: 06/17/2018 HISTORY: Rule out pneumonia; pleural effusions. REFERENCE: Previous study dated 06/16/2018. FINDINGS: There is a left internal jugular catheter in place. Tip is at the cavoatrial junction. The heart is mildly enlarged. There is a worsening right-sided effusion. There are some right basilar airspace disease. There is vascular congestion without sidra edema. IMPRESSION: 1. CARDIOMEGALY AND VASCULAR CONGESTION. 2. WORSENING LEFT-SIDED EFFUSION. 3. RIGHT BASILAR AIRSPACE DISEASE.
[2018-06-17] MEDS: PANTOPRAZOLE 40 MG TABLET PO SCH (09:53)
[2018-06-17] MEDS: MORPHINE SULFATE ER 30 MG TABLET PO SCH ×2 (09:54→20:37)
[2018-06-17] MEDS: PILOCARPINE 5 MG TAB PO SCH ×2 (09:54→20:36)
[2018-06-17] MEDS: VENLAFAXINE HCL 75 MG TAB PO SCH ×2 (09:54→20:49)
[2018-06-17] MEDS: FUROSEMIDE 40 MG TAB PO SCH (09:57)
--- NOTE | 2018-06-17 12:22 | P.PN ---
Subjective Progress Note Date: 06/17/18 62-year-old obese female patient with known history of nephrolithiasis. The patient presented to the hospital because of 3 day history of right flank pain associated with nausea vomiting fever and altered mentation. Her initial UA was essentially not suggestive of an underlying UTI. CAT scan of the abdomen and pelvis was done and showed right kidney hydronephrosis with perinephric stranding and a 12 mm right UPJ calculus. Based on that, the patient was taken to the operating room and the patient underwent cystoscopy and right ureteral stent insertion for right kidney pyelonephritis and right UPJ calculus. At this point in time, the patient is in the intensive care unit. She is identified to be septic and she currently has a gram-negative bacillus in her blood which is probably of a urinary source. I looked back in her old cultures in a seated the patient was infected with E. coli that was resistant to quinolones back in September 2017. Based on that, I give the patient 2 g of IV Rocephin and I put her on aztreonam IV. I also inserted a triple lumen catheter in the left IJ. The patient is being resuscitated IV fluids pH was given a liter of normal saline in the recovery and she will receive another liter here in the ICU. Her white cell count is at 12.7. She has mild lactic acidosis is improving and it lactic acid level is down to 1.3 from a baseline of 3.0. She is also an acute kidney injury. Creatinine is up to 1.5 from a normal baseline. LFTs are mildly abnormal also. This is probably due to underlying sepsis. The patient is a bit restless. She is confused. She is encephalopathic probably related to underlying sepsis. She has not required pressors. No significant tachycardia and her cardiac rhythm is sinus at this point in time. On today's evaluation of 06/15/2018, I'm seeing this patient for a follow-up. The patient is in the hospital for obstructive uropathy, pyelonephritis involving the right post insertion of a double J-tube and septic secondary to UTI. The patient's urine is showing gram-negative bacillus. The patient's blood is showing gram-negative bacillus. The patient was seen by ID yesterday. The patient was switched IV cefepime. Hemodynamically stable. Producing adequate amount of urine output. She is in a positive balance of 6 L over the past 24 hours. Creatinine is down to 1.3. She is producing adequate amount of urine output. Neurologically, she is still encephalopathic patient is not agitated. She can recognize her family members state she can answer some simple questions and commands however other times it is obvious that the patient is confused and she continues to repeat same sentences and doesn't make any sense. No focal neurological deficit and the patient is moving all 4 extremities without any limitation. No headaches. No neck stiffness. CAT scan of the brain done earlier showed no acute abnormalities. ID is on the case. Urology is on the case. On 06/16/2018, patient is awake alert and responsive and her metabolic encephalopathy has recovered. She is moving all 4 extremities and was able to sit up on a chair. She is hemodynamically stable. No hypotension. No fever or chills. She has E. coli sepsis secondary to a complicated urinary tract infection. She came in with acute pyelonephritis and septicemia and she had a double-J stent insertion on the right. She is on IV Rocephin for now 2 g every 24 hours. No significant issues. Overnight she became a bit short of breath and hypoxic. She was in some degree of fluid overload. She was given IV Lasix. IV fluids were cut down to KVO. She is tolerating diet. No nausea. No vomiting. No emesis. No other complaints otherwise. Renal function is normalized. On 06/17/2018, the patient is doing well. No complaints. Afebrile. Hemodynamically stable. Fully alert and awake. She is still on broad-spectrum antibiotics with 2 g of Rocephin regarding an E. coli urinary tract infection and sepsis. Renal function stable. Hemodynamically stable. Pain is under better control and we'll resume her routine outpatient MS Contin and Sula. The patient will be moved out of the intensive care unit for now. No nausea. No vomiting. Tolerating his diet. Objective - Vital Signs Vital signs: Vital Signs Temp 98.0 F 06/17/18 08:00 Pulse 103 H 06/17/18 11:00 Resp 24 06/17/18 11:00 BP 144/83 06/17/18 11:00 Pulse Ox 96 06/17/18 11:00 Intake & Output 06/16/18 06/17/18 06/17/18 18:59 06:59 18:59 Intake Total 1140 120 250 Output Total 670 590 460 Balance 470 -470 -210 Weight 133.9 kg Intake: IV 420 120 50 Sodium Chloride 0.9% 1, 360 120 50 000 ml @ 10 mls/hr IV . Q24H COUNT INCLUDES THE [facility] Rx#:[id number] Sodium Chloride 0.9% 1, 60 000 ml @ 150 mls/hr IV . Q6H40M COUNT INCLUDES THE [facility] Rx#:[id number] Intake, IV Titration 500 Amount Potassium Chloride 10 meq 400 In Water For Injection 1 100ml.bag @ 100 mls/hr IVPB Q1HR COUNT INCLUDES THE [facility] Rx#: [id number] Sodium Phosphate 10 mmol 100 In Sodium Chloride 0.9% 100 ml @ 50 mls/hr IVPB ONCE ONE Rx#:[id number] Oral 220 200 Output: Urine 670 590 460 Other: Voiding Method Indwelling Catheter Indwelling Catheter - Exam Obese, comfortable, not in any form of respiratory distress at this point in time. Head exam was generally normal. There was no scleral icterus or corneal arcus. Mucous membranes were moist. Neck was supple and without jugular venous distension, thyromegaly, or carotid bruits. Carotids were easily palpable bilaterally. There was no adenopathy. The patient is a left IJ triple lumen catheter in place Lungs were clear to auscultation and percussion, and with normal diaphragmatic excursion. No wheezes or rales were noted. Cardiac exam revealed the PMI to be normally situated and sized. The rhythm was regular and no extrasystoles were noted during several minutes of auscultation. The first and second heart sounds were normal and physiologic splitting of the second heart sound was noted. There were no murmurs, rubs, clicks, or gallops. Abdomen is obese soft nontender no direct tenderness, no rebound tensile guarding, there is some mild right CVA angle tenderness improved compared to yesterday. Examination of the extremities revealed easily palpable radial, femoral and pedal pulses. There was no cyanosis, clubbing or edema. Examination of the skin revealed no evidence of significant rashes, suspicious appearing nevi or other concerning lesions. Neurologic , alert and awake and the patient is following commands and answering questions appropriately. - Labs CBC & Chem 7: 06/17/18 04:30 06/17/18 04:30 Labs: Abnormal Lab Results - Last 24 Hours (Table) 06/17/18 06/17/18 Range/Units 04:30 04:30 Hgb 8.5 L (11.4-16.0) gm/dL Hct 29.2 L (34.0-46.0) % MCV 77.0 L (80.0-100.0) fL MCH 22.3 L (25.0-35.0) pg MCHC 29.0 L (31.0-37.0) g/dL RDW 18.4 H (11.5-15.5) % Plt Count 114 L (150-450) k/uL Lymphocytes # 0.5 L (1.0-4.8) k/uL Sodium 134 L (137-145) mmol/L BUN 19 H (7-17) mg/dL Glucose 103 H (74-99) mg/dL Calcium 8.0 L (8.4-10.2) mg/dL Phosphorus 2.2 L (2.5-4.5) mg/dL Microbiology - Last 24 Hours (Table) 06/14/18 07:15 Urine Culture - Final Urine,Ureter Escherichia coli 06/14/18 00:00 Urine Culture - Final Urine,Catheterized Escherichia coli Assessment and Plan Plan: Assessment 1 acute E. coli sepsis secondary to right kidney pyelonephritis. Patient is hemodynamically stable. The patient is on IV Rocephin. 2 acute right kidney pyelonephritis/right UPJ calculus, post cystoscopy and right ureteral stent insertion 3 acute kidney injury , recovered 4 nephrolithiasis, history of 5 acute lactic acidosis secondary to above, recovered 6 hypotension secondary to sepsis, recovered 7 encephalopathy, likely secondary to toxic metabolic encephalopathy related to sepsis, recovered 8 morbid obesity 9 fibromyalgia 10 bronchial asthma mild intermittent in nature 11 rheumatoid arthritis 12 obstructive sleep apnea mild in severity with an AHI of 11 13 hypothyroidism 14 history of bariatric surgery for weight loss, involving a Azul-en-Y gastric bypass surgery 15 mild abnormal LFTs likely secondary to sepsis 16 degenerative arthritis Plan The patient is stable. Continue Rocephin. Will transfer to a medical floor. Monitor hemoglobin. Restart oral Lasix. Restart MS Contin. Restart Sula. Stop the IV morphine. We decided to keep the Esposito catheter for another 24 hours upon the patient's request. Urology on the case. We'll continue to follow.
--- NOTE | 2018-06-17 14:43 | P.PN ---
Subjective 06/17/2018; the patient is doing well. No complaints. Afebrile. Hemodynamically stable. Fully alert and awake. She is still on broad-spectrum antibiotics with 2 g of Rocephin regarding an E. coli urinary tract infection and sepsis. Renal function stable. Hemodynamically stable. Pain is under better control and we' ll resume her routine outpatient MS Ginny and Melania. The patient will be moved out of the intensive care unit for now. No nausea. No vomiting. Tolerating his diet. Objective - Vital Signs Vital signs: Vital Signs Temp 98.0 F 06/17/18 08:00 Pulse 103 H 06/17/18 13:00 Resp 28 H 06/17/18 13:00 BP 148/81 06/17/18 13:00 Pulse Ox 96 06/17/18 11:00 Intake & Output 06/16/18 06/17/18 06/17/18 18:59 06:59 18:59 Intake Total 1140 120 270 Output Total 529 591 1999 Balance 470 -470 -890 Weight 133.9 kg Intake: IV 420 120 70 Sodium Chloride 0.9% 1, 360 120 70 000 ml @ 10 mls/hr IV . Q24H [facility] Rx#:[id number] Sodium Chloride 0.9% 1, 60 000 ml @ 150 mls/hr IV . Q6H40M [facility] Rx#:[id number] Intake, IV Titration 500 Amount Potassium Chloride 10 meq 400 In Water For Injection 1 100ml.bag @ 100 mls/hr IVPB Q1HR [facility] Rx#: [id number] Sodium Phosphate 10 mmol 100 In Sodium Chloride 0.9% 100 ml @ 50 mls/hr IVPB ONCE ONE Rx#:[id number] Oral 220 200 Output: Urine 560 791 5276 Other: Voiding Method Indwelling Catheter Indwelling Catheter Indwelling Catheter - Exam Obese, comfortable, not in any form of respiratory distress at this point in time. Head exam was generally normal. There was no scleral icterus or corneal arcus. Mucous membranes were moist. Neck was supple and without jugular venous distension, thyromegaly, or carotid bruits. Carotids were easily palpable bilaterally. There was no adenopathy. The patient is a left IJ triple lumen catheter in place Lungs were clear to auscultation and percussion, and with normal diaphragmatic excursion. No wheezes or rales were noted. Cardiac exam revealed the PMI to be normally situated and sized. The rhythm was regular and no extrasystoles were noted during several minutes of auscultation. The first and second heart sounds were normal and physiologic splitting of the second heart sound was noted. There were no murmurs, rubs, clicks, or gallops. Abdomen is obese soft nontender no direct tenderness, no rebound tensile guarding, there is some mild right CVA angle tenderness improved compared to yesterday. Examination of the extremities revealed easily palpable radial, femoral and pedal pulses. There was no cyanosis, clubbing or edema. Examination of the skin revealed no evidence of significant rashes, suspicious appearing nevi or other concerning lesions. Neurologic , alert and awake and the patient is following commands and answering questions appropriately. - Labs CBC & Chem 7: 06/17/18 04:30 06/17/18 04:30 Labs: Abnormal Lab Results - Last 24 Hours (Table) 06/17/18 06/17/18 Range/Units 04:30 04:30 Hgb 8.5 L (11.4-16.0) gm/dL Hct 29.2 L (34.0-46.0) % MCV 77.0 L (80.0-100.0) fL MCH 22.3 L (25.0-35.0) pg MCHC 29.0 L (31.0-37.0) g/dL RDW 18.4 H (11.5-15.5) % Plt Count 114 L (150-450) k/uL Lymphocytes # 0.5 L (1.0-4.8) k/uL Sodium 134 L (137-145) mmol/L BUN 19 H (7-17) mg/dL Glucose 103 H (74-99) mg/dL Calcium 8.0 L (8.4-10.2) mg/dL Phosphorus 2.2 L (2.5-4.5) mg/dL Microbiology - Last 24 Hours (Table) 06/14/18 07:15 Urine Culture - Final Urine,Ureter Escherichia coli 06/14/18 00:00 Urine Culture - Final Urine,Catheterized Escherichia coli Assessment and Plan Plan: 1 acute E. coli sepsis secondary to right kidney pyelonephritis. - Patient is hemodynamically stable. - The patient is on IV Rocephin. 2 acute right kidney pyelonephritis/right UPJ calculus, - post cystoscopy and right ureteral stent insertion; stable 3 acute kidney injury; resolved 4 hypotension secondary to sepsis, recovered 5 encephalopathy, likely secondary to toxic metabolic encephalopathy related to sepsis, recovered 6 fibromyalgia 7 bronchial asthma mild intermittent in nature 8 rheumatoid arthritis 9 obstructive sleep apnea mild in severity with an AHI of 11 10 hypothyroidism 11 mild abnormal LFTs likely secondary to sepsis The patient is stable. Continue Rocephin. Will transfer to a medical floor. Monitor hemoglobin. Restart oral Lasix. Restart MS Contin. Restart [place]. Stop the IV morphine. We decided to keep the Esposito catheter for another 24 hours upon the patient's request. Urology on the case. We'll continue to follow. Time with Patient: Greater than 30
--- NOTE | 2018-06-17 14:46 | P.PN ---
Subjective Progress Note Date: 06/16/18 06/16/2018; patient is awake alert and responsive and her metabolic encephalopathy has recovered. She is moving all 4 extremities and was able to sit up on a chair. She is hemodynamically stable. No hypotension. No fever or chills. She has E. coli sepsis secondary to a complicated urinary tract infection. She came in with acute pyelonephritis and septicemia and she had a double-J stent insertion on the right. She is on IV Rocephin for now 2 g every 24 hours. No significant issues. Overnight she became a bit short of breath and hypoxic. She was in some degree of fluid overload. She was given IV Lasix. IV fluids were cut down to KVO. She is tolerating diet. No nausea. No vomiting. No emesis. No other complaints otherwise. Renal function is normalized. Objective - Vital Signs Vital signs: Vital Signs Temp 97.5 F L 06/16/18 08:00 Pulse 106 H 06/16/18 11:00 Resp 62 H 06/16/18 11:00 BP 131/67 06/16/18 11:00 Pulse Ox 94 L 06/16/18 11:00 Intake & Output 06/15/18 06/16/18 06/16/18 18:59 06:59 18:59 Intake Total 1950 120 200 Output Total 800 1945 370 Balance 9470 -1474 -170 Weight 133.8 kg 134.7 kg Intake: IV 1950 120 200 Aztreonam 2 gm In Sodium 50 Chloride 0.9% 100 ml @ 100 mls/hr IVPB Q12HR [facility] Rx#:[id number] Magnesium Sulfate-D5w Pmx 100 1 gm In Dextrose/Water 1 100ml.bag @ 100 mls/hr IVPB Q1H [facility] Rx#: [id number] Potassium Chloride 20 meq 100 In Water For Injection 1 100ml.bag @ 50 mls/hr IVPB Q2H [facility] Rx#: [id number] Sodium Chloride 0.9% 1, 120 140 000 ml @ 10 mls/hr IV . Q24H [facility] Rx#:[id number] Sodium Chloride 0.9% 1, 1700 60 000 ml @ 150 mls/hr IV . Q6H40M [facility] Rx#:[id number] Output: Urine 800 1945 370 Other: Voiding Method Indwelling Catheter Indwelling Catheter - Exam Obese, comfortable, not in any form of respiratory distress at this point in time. Head exam was generally normal. There was no scleral icterus or corneal arcus. Mucous membranes were moist. Neck was supple and without jugular venous distension, thyromegaly, or carotid bruits. Carotids were easily palpable bilaterally. There was no adenopathy. The patient is a left IJ triple lumen catheter in place Lungs were clear to auscultation and percussion, and with normal diaphragmatic excursion. No wheezes or rales were noted. Cardiac exam revealed the PMI to be normally situated and sized. The rhythm was regular and no extrasystoles were noted during several minutes of auscultation. The first and second heart sounds were normal and physiologic splitting of the second heart sound was noted. There were no murmurs, rubs, clicks, or gallops. Abdomen is obese soft nontender no direct tenderness, no rebound tensile guarding, there is some mild right CVA angle tenderness improved compared to yesterday. Examination of the extremities revealed easily palpable radial, femoral and pedal pulses. There was no cyanosis, clubbing or edema. Examination of the skin revealed no evidence of significant rashes, suspicious appearing nevi or other concerning lesions. Neurologic , alert and awake and the patient is following commands and answering questions appropriately. - Labs CBC & Chem 7: 06/17/18 04:30 06/17/18 04:30 Labs: Abnormal Lab Results - Last 24 Hours (Table) 06/15/18 06/16/18 06/16/18 Range/Units 04:20 04:20 04:20 Hgb 8.7 L (11.4-16.0) gm/dL Hct 30.3 L (34.0-46.0) % MCV 76.6 L (80.0-100.0) fL MCH 22.1 L (25.0-35.0) pg MCHC 28.8 L (31.0-37.0) g/dL RDW 18.1 H (11.5-15.5) % Plt Count 124 L (150-450) k/uL Lymphocytes # 0.5 L (1.0-4.8) k/uL Sodium 136 L (137-145) mmol/L BUN 22 H (7-17) mg/dL Glucose 108 H (74-99) mg/dL Hemoglobin A1c 6.4 H (4.0-6.0) % Calcium 8.1 L (8.4-10.2) mg/dL Phosphorus 2.4 L (2.5-4.5) mg/dL Microbiology - Last 24 Hours (Table) 06/14/18 00:00 Urine Culture - Final Urine,Catheterized Escherichia coli 06/13/18 22:40 Blood Culture Gram Stain - Final Blood Blood Culture - Final Escherichia coli 06/13/18 22:40 Blood Culture Gram Stain - Final Blood Blood Culture - Final Escherichia coli 06/14/18 07:15 Urine Culture - Preliminary Urine,Ureter Gram Neg Bacilli Assessment and Plan Plan: 1 acute E. coli sepsis secondary to right kidney pyelonephritis. - Patient is hemodynamically stable. - The patient is on IV Rocephin. 2 acute right kidney pyelonephritis/right UPJ calculus, - post cystoscopy and right ureteral stent insertion; stable 3 acute kidney injury; resolved 4 hypotension secondary to sepsis, recovered 5 encephalopathy, likely secondary to toxic metabolic encephalopathy related to sepsis, recovered 6 fibromyalgia 7 bronchial asthma mild intermittent in nature 8 rheumatoid arthritis 9 obstructive sleep apnea mild in severity with an AHI of 11 10 hypothyroidism 11 mild abnormal LFTs likely secondary to sepsis ] Time with Patient: Greater than 30
[2018-06-17] MEDS: HYDROcodone/APAP 10-325MG 1 EACH TAB PO PRN (15:03)
[2018-06-17] MEDS: SODIUM CHLORIDE 0.9% 1,000 ML IV SCH (20:36)
[2018-06-17] MEDS: AMITRIPTYLINE HCL 25 MG TAB PO SCH (20:37)
[2018-06-17] MEDS: MONTELUKAST 10 MG TAB PO SCH (20:49)
[2018-06-18] MEDS: cefTRIAXone IN SWFI 2,000 MG/20 ML SYRINGE IVP SCH ×2 (00:08→23:47)
[2018-06-18] MEDS: HEPARIN SODIUM,PORCINE 5,000 UNIT/ML 1 ML VIAL SQ SCH ×4 (00:09→23:47)
[2018-06-18] MEDS: LEVOTHYROXINE 75 MCG TAB PO SCH (06:24)
--- NOTE | 2018-06-18 07:29 | XR ---
EXAMINATION TYPE: XR chest 1V portable DATE OF EXAM: 06/18/2018 HISTORY: Rule out pneumonia; pleural effusions. REFERENCE: Previous study dated 06/17/2018. FINDINGS: A left internal jugular catheter remains in place, unchanged in appearance. The heart is mildly enlarged. The lungs appear clear. Pleural spaces are clear. IMPRESSION: MILD CARDIOMEGALY.
[2018-06-18] MEDS: PANTOPRAZOLE 40 MG TABLET PO SCH (09:13)
[2018-06-18] MEDS: FUROSEMIDE 40 MG TAB PO SCH (09:31)
[2018-06-18] MEDS: MORPHINE SULFATE ER 30 MG TABLET PO SCH ×2 (09:31→20:13)
[2018-06-18] MEDS: PILOCARPINE 5 MG TAB PO SCH ×2 (09:32→20:13)
[2018-06-18] MEDS: VENLAFAXINE HCL 75 MG TAB PO SCH ×2 (09:32→20:13)
[2018-06-18 09:41] LABS: Anisocytosis Slight; Basophils % (A) 0 %; Eosinophils # (A) 0.1 k/uL (0-0.7); Eosinophils % (A) 2 %; HCT 28.6 % (34.0-46.0); HGB 8.5 gm/dL (11.4-16.0); Hypochromasia Marked; Lymphocytes # (A) 0.6 k/uL (1.0-4.8); Lymphocytes % (A) 9 %; MCH 22.3 pg (25.0-35.0); MCHC 29.6 g/dL (31.0-37.0); MCV 75.3 fL (80.0-100.0); Mean Platelet Volume 9.1; Microcytosis Moderate; Monocytes # (A) 0.4 k/uL (0-1.0); Monocytes % (A) 7 %; Neutrophils # (A) 5.1 k/uL (1.3-7.7); Neutrophils % (A) 81 %; Platelet Count 138 k/uL (150-450); RBC 3.79 m/uL (3.80-5.40); RDW 18.6 % (11.5-15.5); WBC 6.3 k/uL (3.8-10.6)
[2018-06-18 09:49] LABS: Anion Gap 7 mmol/L; Blood Urea Nitrogen 15 mg/dL (7-17); Calcium 8.1 mg/dL (8.4-10.2); Carbon Dioxide 26 mmol/L (22-30); Chloride 104 mmol/L (98-107); Glucose 133 mg/dL (74-99); Phosphorus 2.1 mg/dL (2.5-4.5); Potassium 3.4 mmol/L (3.5-5.1); Sodium 137 mmol/L (137-145)
--- NOTE | 2018-06-18 12:08 | P.PN ---
Subjective Progress Note Date: 06/18/18 62-year-old obese female patient with known history of nephrolithiasis. The patient presented to the hospital because of 3 day history of right flank pain associated with nausea vomiting fever and altered mentation. Her initial UA was essentially not suggestive of an underlying UTI. CAT scan of the abdomen and pelvis was done and showed right kidney hydronephrosis with perinephric stranding and a 12 mm right UPJ calculus. Based on that, the patient was taken to the operating room and the patient underwent cystoscopy and right ureteral stent insertion for right kidney pyelonephritis and right UPJ calculus. At this point in time, the patient is in the intensive care unit. She is identified to be septic and she currently has a gram-negative bacillus in her blood which is probably of a urinary source. I looked back in her old cultures in a seated the patient was infected with E. coli that was resistant to quinolones back in September 2017. Based on that, I give the patient 2 g of IV Rocephin and I put her on aztreonam IV. I also inserted a triple lumen catheter in the left IJ. The patient is being resuscitated IV fluids pH was given a liter of normal saline in the recovery and she will receive another liter here in the ICU. Her white cell count is at 12.7. She has mild lactic acidosis is improving and it lactic acid level is down to 1.3 from a baseline of 3.0. She is also an acute kidney injury. Creatinine is up to 1.5 from a normal baseline. LFTs are mildly abnormal also. This is probably due to underlying sepsis. The patient is a bit restless. She is confused. She is encephalopathic probably related to underlying sepsis. She has not required pressors. No significant tachycardia and her cardiac rhythm is sinus at this point in time. On today's evaluation of 06/15/2018, I'm seeing this patient for a follow-up. The patient is in the hospital for obstructive uropathy, pyelonephritis involving the right post insertion of a double J-tube and septic secondary to UTI. The patient's urine is showing gram-negative bacillus. The patient's blood is showing gram-negative bacillus. The patient was seen by ID yesterday. The patient was switched IV cefepime. Hemodynamically stable. Producing adequate amount of urine output. She is in a positive balance of 6 L over the past 24 hours. Creatinine is down to 1.3. She is producing adequate amount of urine output. Neurologically, she is still encephalopathic patient is not agitated. She can recognize her family members state she can answer some simple questions and commands however other times it is obvious that the patient is confused and she continues to repeat same sentences and doesn't make any sense. No focal neurological deficit and the patient is moving all 4 extremities without any limitation. No headaches. No neck stiffness. CAT scan of the brain done earlier showed no acute abnormalities. ID is on the case. Urology is on the case. On 06/16/2018, patient is awake alert and responsive and her metabolic encephalopathy has recovered. She is moving all 4 extremities and was able to sit up on a chair. She is hemodynamically stable. No hypotension. No fever or chills. She has E. coli sepsis secondary to a complicated urinary tract infection. She came in with acute pyelonephritis and septicemia and she had a double-J stent insertion on the right. She is on IV Rocephin for now 2 g every 24 hours. No significant issues. Overnight she became a bit short of breath and hypoxic. She was in some degree of fluid overload. She was given IV Lasix. IV fluids were cut down to KVO. She is tolerating diet. No nausea. No vomiting. No emesis. No other complaints otherwise. Renal function is normalized. On 06/17/2018, the patient is doing well. No complaints. Afebrile. Hemodynamically stable. Fully alert and awake. She is still on broad-spectrum antibiotics with 2 g of Rocephin regarding an E. coli urinary tract infection and sepsis. Renal function stable. Hemodynamically stable. Pain is under better control and we'll resume her routine outpatient MS Contin and [place]. The patient will be moved out of the intensive care unit for now. No nausea. No vomiting. Tolerating his diet. On 06/18/2018, the patient is ambulating. No respiratory difficulties. No fever or chills. Triple lumen catheter will be removed. Pain is under good control. She is on a combination of MS Contin and [place]. She is on IV Rocephin regarding the E. coli septicemia. No encephalopathy. Objective - Vital Signs Vital signs: Vital Signs Temp 98.7 F 08/26/18 07:00 Pulse 91 06/18/18 07:00 Resp 20 06/18/18 07:00 BP 145/83 06/18/18 07:00 Pulse Ox 95 06/18/18 07:00 Intake & Output 06/17/18 06/18/18 06/18/18 18:59 06:59 18:59 Intake Total 270 300 Output Total 1160 1701 Balance -890 -1401 Weight 133.9 kg Intake: IV 70 Sodium Chloride 0.9% 1, 70 000 ml @ 10 mls/hr IV . Q24H [facility] Rx#:[id number] Oral 200 300 Output: Urine 1160 1700 Uretheral ([place]) 1200 Stool 1 Other: Voiding Method Indwelling Catheter Indwelling Catheter Indwelling Catheter # Bowel Movements 1 - Exam Obese, comfortable, not in any form of respiratory distress at this point in time. Head exam was generally normal. There was no scleral icterus or corneal arcus. Mucous membranes were moist. Neck was supple and without jugular venous distension, thyromegaly, or carotid bruits. Carotids were easily palpable bilaterally. There was no adenopathy. The patient is a left IJ triple lumen catheter in place Lungs were clear to auscultation and percussion, and with normal diaphragmatic excursion. No wheezes or rales were noted. Cardiac exam revealed the PMI to be normally situated and sized. The rhythm was regular and no extrasystoles were noted during several minutes of auscultation. The first and second heart sounds were normal and physiologic splitting of the second heart sound was noted. There were no murmurs, rubs, clicks, or gallops. Abdomen is obese soft nontender no direct tenderness, no rebound tensile guarding, there is some mild right CVA angle tenderness improved compared to yesterday. Examination of the extremities revealed easily palpable radial, femoral and pedal pulses. There was no cyanosis, clubbing or edema. Examination of the skin revealed no evidence of significant rashes, suspicious appearing nevi or other concerning lesions. Neurologic , alert and awake and the patient is following commands and answering questions appropriately. - Labs CBC & Chem 7: 06/18/18 09:04 06/18/18 09:04 Labs: Abnormal Lab Results - Last 24 Hours (Table) 06/18/18 06/18/18 Range/Units 09:04 09:04 RBC 3.79 L (3.80-5.40) m/uL Hgb 8.5 L (11.4-16.0) gm/dL Hct 28.6 L (34.0-46.0) % MCV 75.3 L (80.0-100.0) fL MCH 22.3 L (25.0-35.0) pg MCHC 29.6 L (31.0-37.0) g/dL RDW 18.6 H (11.5-15.5) % Plt Count 138 L (150-450) k/uL Lymphocytes # 0.6 L (1.0-4.8) k/uL Potassium 3.4 L (3.5-5.1) mmol/L Glucose 133 H (74-99) mg/dL Calcium 8.1 L (8.4-10.2) mg/dL Phosphorus 2.1 L (2.5-4.5) mg/dL Assessment and Plan Plan: Assessment 1 acute E. coli sepsis secondary to right kidney pyelonephritis. Patient is hemodynamically stable. The patient is on IV Rocephin. 2 acute right kidney pyelonephritis/right UPJ calculus, post cystoscopy and right ureteral stent insertion 3 acute kidney injury , recovered 4 nephrolithiasis, history of 5 acute lactic acidosis secondary to above, recovered 6 hypotension secondary to sepsis, recovered 7 encephalopathy, likely secondary to toxic metabolic encephalopathy related to sepsis, recovered 8 morbid obesity 9 fibromyalgia 10 bronchial asthma mild intermittent in nature 11 rheumatoid arthritis 12 obstructive sleep apnea mild in severity with an AHI of 11 13 hypothyroidism 14 history of bariatric surgery for weight loss, involving a Azul-en-Y gastric bypass surgery 15 mild abnormal LFTs likely secondary to sepsis 16 degenerative arthritis Plan Remove the triple-lumen catheter. Continue IV Rocephin. Ambulation increased level of activity as tolerated. Pulmonary critical care services we'll sign off.
[2018-06-18] MEDS: HYDROcodone/APAP 10-325MG 1 EACH TAB PO PRN (13:22)
--- NOTE | 2018-06-18 14:57 | P.PN ---
Subjective Progress Note Date: 06/18/18 06/16/2018; patient is awake alert and responsive and her metabolic encephalopathy has recovered. She is moving all 4 extremities and was able to sit up on a chair. She is hemodynamically stable. No hypotension. No fever or chills. She has E. coli sepsis secondary to a complicated urinary tract infection. She came in with acute pyelonephritis and septicemia and she had a double-J stent insertion on the right. She is on IV Rocephin for now 2 g every 24 hours. No significant issues. Overnight she became a bit short of breath and hypoxic. She was in some degree of fluid overload. She was given IV Lasix. IV fluids were cut down to KVO. She is tolerating diet. No nausea. No vomiting. No emesis. No other complaints otherwise. Renal function is normalized. 06/18/2018 Patient has E. coli bacteremia secondary to complicated UTI status post cystoscopy and ureteral stent placement; the patient is ambulating. No respiratory difficulties. No fever or chills. Triple lumen catheter will be removed. Pain is under good control. She is on a combination of MS Contin and [place]. She is on IV Rocephin regarding the E. coli septicemia. No encephalopathy. Remove the triple-lumen catheter. Continue IV Rocephin. Ambulation increased level of activity as tolerated. we await further recommendations from ID regarding continuation of IV antibiotics and possible switch to oral; discharge planning per ID recommendations Objective - Vital Signs Vital signs: Vital Signs Temp 98.7 F 06/18/18 07:00 Pulse 91 06/18/18 07:00 Resp 20 06/18/18 07:00 BP 145/83 06/18/18 07:00 Pulse Ox 95 06/18/18 07:00 Intake & Output 06/17/18 06/18/18 06/18/18 18:59 06:59 18:59 Intake Total 270 300 Output Total 1160 1701 900 Balance -890 -1401 -900 Weight 133.9 kg Intake: IV 70 Sodium Chloride 0.9% 1, 70 000 ml @ 10 mls/hr IV . Q24H [facility] Rx#:[id number] Oral 200 300 Output: Urine 1160 1700 900 Uretheral ([place]) 1200 Stool 1 Other: Voiding Method Indwelling Catheter Indwelling Catheter Indwelling Catheter # Bowel Movements 1 1 - Exam Obese, comfortable, not in any form of respiratory distress at this point in time. Head exam was generally normal. There was no scleral icterus or corneal arcus. Mucous membranes were moist. Neck was supple and without jugular venous distension, thyromegaly, or carotid bruits. Carotids were easily palpable bilaterally. There was no adenopathy. The patient is a left IJ triple lumen catheter in place Lungs were clear to auscultation and percussion, and with normal diaphragmatic excursion. No wheezes or rales were noted. Cardiac exam revealed the PMI to be normally situated and sized. The rhythm was regular and no extrasystoles were noted during several minutes of auscultation. The first and second heart sounds were normal and physiologic splitting of the second heart sound was noted. There were no murmurs, rubs, clicks, or gallops. Abdomen is obese soft nontender no direct tenderness, no rebound tensile guarding, there is some mild right CVA angle tenderness improved compared to yesterday. Examination of the extremities revealed easily palpable radial, femoral and pedal pulses. There was no cyanosis, clubbing or edema. Examination of the skin revealed no evidence of significant rashes, suspicious appearing nevi or other concerning lesions. Neurologic , alert and awake and the patient is following commands and answering questions appropriately. - Labs CBC & Chem 7: 06/18/18 09:04 06/18/18 09:04 Labs: Abnormal Lab Results - Last 24 Hours (Table) 06/18/18 06/18/18 Range/Units 09:04 09:04 RBC 3.79 L (3.80-5.40) m/uL Hgb 8.5 L (11.4-16.0) gm/dL Hct 28.6 L (34.0-46.0) % MCV 75.3 L (80.0-100.0) fL MCH 22.3 L (25.0-35.0) pg MCHC 29.6 L (31.0-37.0) g/dL RDW 18.6 H (11.5-15.5) % Plt Count 138 L (150-450) k/uL Lymphocytes # 0.6 L (1.0-4.8) k/uL Potassium 3.4 L (3.5-5.1) mmol/L Glucose 133 H (74-99) mg/dL Calcium 8.1 L (8.4-10.2) mg/dL Phosphorus 2.1 L (2.5-4.5) mg/dL Assessment and Plan Plan: 1 acute E. coli sepsis secondary to right kidney pyelonephritis. - Patient is hemodynamically stable. - The patient is on IV Rocephin. 2 acute right kidney pyelonephritis/right UPJ calculus, - post cystoscopy and right ureteral stent insertion; stable 3 acute kidney injury; resolved 4 hypotension secondary to sepsis, recovered 5 encephalopathy, likely secondary to toxic metabolic encephalopathy related to sepsis, recovered 6 fibromyalgia 7 bronchial asthma mild intermittent in nature 8 rheumatoid arthritis 9 obstructive sleep apnea mild in severity with an AHI of 11 10 hypothyroidism 11 mild abnormal LFTs likely secondary to sepsis ] Time with Patient: Greater than 30
[2018-06-18] MEDS: SODIUM CHLORIDE 0.9% 1,000 ML IV SCH (20:10)
[2018-06-18] MEDS: AMITRIPTYLINE HCL 25 MG TAB PO SCH (20:13)
[2018-06-18] MEDS: MONTELUKAST 10 MG TAB PO SCH (20:13)
[2018-06-19] MEDS: HYDROcodone/APAP 10-325MG 1 EACH TAB PO PRN (04:32)
[2018-06-19 06:18] VITALS: BP 144/76; PULSE 90; RESP 17; TEMP 98.1
[2018-06-19] MEDS: LEVOTHYROXINE 75 MCG TAB PO SCH (06:19)
--- NOTE | 2018-06-19 06:48 | PN ---
PROGRESS NOTE DATE OF SERVICE: 06/18/2018. REASON FOR FOLLOWUP: Complicated E. coli urinary tract infection with bacteremia. INTERVAL HISTORY: The patient is currently afebrile. She is feeling much better today, breathing comfortably. Denies having any chest pain. No shortness of breath or cough. Some pain in the right flank area but no nausea or vomiting and no diarrhea. EXAMINATION: Blood pressure 159/81 with a pulse of 96, temperature 99. She is 92% on room air. General description is a middle-aged female up in the bed in no distress. HEENT EXAMINATION: Slight pallor. No scleral icterus. Oral mucosa is moist. LUNGS: Unlabored breathing. Clear to auscultation anteriorly. HEART: S1, S2. Regular rate and rhythm. ABDOMEN: Soft, no tenderness. EXTREMITIES: No edema of the feet. LABS: Hemoglobin 8.5, white count 6.3 with a BUN of 15, creatinine 0.81. DIAGNOSTIC IMPRESSION AND PLAN: Patient with ESBL and patient with E coli complicated urinary tract infection with secondary bacteremia with right-sided hydronephrosis, status post right side ureteral stent placement. Patient seemed to have shown overall clinical improvement on Rocephin. White count has normalized. Fever has resolved. To finish therapy with oral Ceftin 500 mg twice a day for at least 10 more days with close outpatient followup. MMODL / IJN: [id number] /
[2018-06-19 08:07] LABS: Anisocytosis Slight; Basophils % (A) 1 %; Eosinophils # (A) 0.2 k/uL (0-0.7); Eosinophils % (A) 3 %; HCT 27.9 % (34.0-46.0); HGB 7.9 gm/dL (11.4-16.0); Hypochromasia Marked; Lymphocytes # (A) 0.8 k/uL (1.0-4.8); Lymphocytes % (A) 14 %; MCH 21.7 pg (25.0-35.0); MCHC 28.5 g/dL (31.0-37.0); MCV 76.2 fL (80.0-100.0); Mean Platelet Volume 7.5; Microcytosis Slight; Monocytes # (A) 0.4 k/uL (0-1.0); Monocytes % (A) 8 %; Neutrophils # (A) 4.3 k/uL (1.3-7.7); Neutrophils % (A) 74 %; Platelet Count 161 k/uL (150-450); RBC 3.66 m/uL (3.80-5.40); RDW 17.8 % (11.5-15.5); WBC 5.8 k/uL (3.8-10.6)
[2018-06-19 08:10] LABS: Anion Gap 4 mmol/L; Blood Urea Nitrogen 12 mg/dL (7-17); Carbon Dioxide 31 mmol/L (22-30); Chloride 103 mmol/L (98-107); Glucose 111 mg/dL (74-99); Magnesium 1.9 mg/dL (1.6-2.3); Phosphorus 2.6 mg/dL (2.5-4.5); Potassium 3.6 mmol/L (3.5-5.1); Sodium 138 mmol/L (137-145)
[2018-06-19] MEDS: VENLAFAXINE HCL 75 MG TAB PO SCH (08:31)
[2018-06-19] MEDS: PILOCARPINE 5 MG TAB PO SCH (08:31)
[2018-06-19] MEDS: HEPARIN SODIUM,PORCINE 5,000 UNIT/ML 1 ML VIAL SQ SCH (08:31)
[2018-06-19] MEDS: MORPHINE SULFATE ER 30 MG TABLET PO SCH (08:32)
[2018-06-19] MEDS: PANTOPRAZOLE 40 MG TABLET PO SCH (08:32)
[2018-06-19] MEDS: FUROSEMIDE 40 MG TAB PO SCH (08:34)
--- NOTE | 2018-06-19 12:09 | PN ---
PROGRESS NOTE DATE OF SERVICE: 06/19/2018 REASON FOR FOLLOWUP: E coli bacteremia secondary to urinary source. INTERVAL HISTORY: The patient is currently afebrile. She is breathing comfortably and the patient denies having any chest pain or shortness of breath. No cough, no abdominal pain, no diarrhea. PHYSICAL EXAMINATION: Blood pressure 144/76 with a pulse of 90, temperature 98.1 she is 94% on room air. General description is a middle-aged female, up in the chair in no distress. RESPIRATORY SYSTEM: Unlabored breathing, clear to auscultation anteriorly. HEART: S1, S2. Regular rate and rhythm. ABDOMEN: Soft, no tenderness. LABS: Hemoglobin 7.8, white count of 5.3, BUN of 12, creatinine 0.77. DIAGNOSTIC IMPRESSION AND PLAN: Patient with Escherichia coli complicated infection with secondary bacteremia. The patient has received about 7 days of IV antibiotic therapy. She will transition to Ceftin 500 mg twice a day for 10-11 days. Prescription has be sent to the pharmacy with close outpatient followup. MMJUSTICE / SHAYNEN: [id number] /
--- NOTE | 2018-06-19 16:56 | P.DS ---
Providers Date of admission: 06/14/18 00:42 Expected date of discharge: 06/19/18 Attending physician: Varsha Garcia Consults: 06/14/18 00:43 Consult Physician Urgent Consulting Provider: Shukri Velasco Consult Reason/Comments: Obstructing right renal calculus with sepsis Do you want consulting provider notified?: Yes 06/14/18 12:26 Consult Physician Stat Consulting Provider: Devin Lorenzo Consult Reason/Comments: septic shock, ICU management Do you want consulting provider notified?: Yes 06/14/18 12:29 Consult Physician Stat Consulting Provider: Martin Raya Consult Reason/Comments: septic shock Do you want consulting provider notified?: Yes Primary care physician: Katelyn Rai Hospital Course: Final Diagnoses: 1 acute E. coli sepsis secondary to right kidney pyelonephritis. - Patient is hemodynamically stable. - The patient is on IV Rocephin. 2 acute right kidney pyelonephritis/right UPJ calculus, - post cystoscopy and right ureteral stent insertion; stable 3 acute kidney injury; resolved 4 hypotension secondary to sepsis, recovered 5 encephalopathy, likely secondary to toxic metabolic encephalopathy related to sepsis, recovered 6 fibromyalgia 7 bronchial asthma mild intermittent in nature 8 rheumatoid arthritis 9 obstructive sleep apnea mild in severity with an AHI of 11 10 hypothyroidism 11 mild abnormal LFTs likely secondary to sepsis ] Hospital course:This is a pleasant 62 years old female with past medical history of kidney stone, common femoral artery, GERD, pneumonia, rheumatoid arthritis, sleep apnea on BiPAP/CPAP, previous bypass surgery and iron deficiency anemia. She had EGD/colonoscopy about 20 years ago for an expected weight loss which was unremarkable. Patient presents with septic like picture clips P secondary to kidney stone. Patient was confused and It appears that she could not provide information. Information was taken from the daughter Ms. Ugarte at bedside, as per her patient was complaining of from around her pain and repeated nausea vomiting, and one-day duration and next morning patient was found unresponsive and she brought to the emergency room daughter also states patient complaining of from mouth infection in the last few days. Interim patient was found to have pulmonary tract infection, with kidney stones and hydronephrosis. Computed tomography scan showed right hydronephrosis with perinephric stranding due to a 12 mm right UPJ calculus. Patient had 6-Icelandic double-J ureteral stent placed in the right ureter after the stone was removed through the cystoscopy by the urologist. When I saw the patient this morning patient was lying in bed moaning but does not follow commands. Her systolic blood pressure was running in the 90-100, last year was around 150. Patient received about 5 L of fluid already had several antibiotics, of note patient is ALLERGIC to penicillin however she received IV vancomycin. We give her a bolus of 1 L. Repeat All labs, and start her on aztreonam. 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 06/15/2018 pt is more awake this morning, her BP is improved (SBP 150s) pt complains from back pain , pulmonary/critical care team and ID team are following the pt . she remains on abx, and her leukocytosis is improving , BC growing gram negative bacilli , most likely source is the urine, CXR: worsening pulmonary congestion as per radiology report. pt breathing is not labored and her ox sat is 95% on room air, urology follow up is appreciated . The Esposito catheter is in place and patent. family were at bed side and all their questions were answered. 06/16/2018; patient is awake alert and responsive and her metabolic encephalopathy has recovered. She is moving all 4 extremities and was able to sit up on a chair. She is hemodynamically stable. No hypotension. No fever or chills. She has E. coli sepsis secondary to a complicated urinary tract infection. She came in with acute pyelonephritis and septicemia and she had a double-J stent insertion on the right. She is on IV Rocephin for now 2 g every 24 hours. No significant issues. Overnight she became a bit short of breath and hypoxic. She was in some degree of fluid overload. She was given IV Lasix. IV fluids were cut down to KVO. She is tolerating diet. No nausea. No vomiting. No emesis. No other complaints otherwise. Renal function is normalized. 06/18/2018 Patient has E. coli bacteremia secondary to complicated UTI status post cystoscopy and ureteral stent placement; the patient is ambulating. No respiratory difficulties. No fever or chills. Triple lumen catheter will be removed. Pain is under good control. She is on a combination of MS Contin and [place]. She is on IV Rocephin regarding the E. coli septicemia. No encephalopathy. Remove the triple-lumen catheter. Continue IV Rocephin. Ambulation increased level of activity as tolerated. we await further recommendations from ID regarding continuation of IV antibiotics and possible switch to oral; discharge planning per ID recommendations Significant clinical improvement. Cleared by all consults for discharge. Repeat blood culture in progress with final results to Dr. Phylicia Rai PCP and Dr. Raya infectious disease. Hemoglobin currently 7.9, repeat outpatient CBC ordered, patient due for vitamin B12 injection at PCP visit.Patient is being discharged home in a stable condition with guarded prognosis. Microbiology 06/14/18 07:15 Urine,Ureter Urine Culture - Final Escherichia coli 06/14/18 00:00 Urine,Catheterized Urine Culture - Final Escherichia coli 06/13/18 22:40 Blood Blood Culture Gram Stain - Final 06/13/18 22:40 Blood Blood Culture - Final Escherichia coli 06/13/18 22:40 Blood Blood Culture Gram Stain - Final 06/13/18 22:40 Blood Blood Culture - Final Escherichia coli 06/13/18 22:40 Blood Blood Culture - Final Exam GENERAL: Alert and oriented 3, no acute distress. Lungs were clear to auscultation and percussion, and with normal diaphragmatic excursion. No wheezes or rales were noted. Cardiac: Regular S1 and S2, no murmurs, rubs, clicks, or gallops. Abdomen is obese soft nontender, positive bowel sounds Neurologic no focal deficits The impression and plan of care has been dictated as directed. : I performed a history and examination of this patient, discussed the same with the dictator. I agree with the dictator's note ,documented as a scribe. Any additional findings or plans will be noted. Time taken: 35 minutes Patient Condition at Discharge: Stable Plan - Discharge Summary Discharge Rx Participant: No New Discharge Prescriptions: New Cefuroxime Axetil [Ceftin] 500 mg PO BID #22 tab Pantoprazole [Protonix] 40 mg PO AC-BRKFST #15 tablet.dr Continue Levothyroxine Sodium [Synthroid] 75 mcg PO DAILY Venlafaxine HCl [Effexor] 75 mg PO BID Furosemide [Lasix] 40 mg PO DAILY Morphine Sulfate ER [Ms Contin] 30 mg PO BID Albuterol Sulfate [Ventolin HFA] 2 puff INHALATION RT-Q6H PRN PRN Reason: ASTHMA Amitriptyline HCl [Elavil] 75 mg PO HS Montelukast [Singulair] 10 mg PO HS Pilocarpine HCl [Salagen] 7.5 mg PO BID Nystatin 100,000 Unit/gm Powd [Mycostatin Powder] 1 applic TOPICAL BID PRN PRN Reason: Rash Fluticasone Nasal [place] [Flonase Nasal [place]] 2 spr EA NOSTRIL DAILY Cyanocobalamin [Vitamin B-12 Injection] 1,000 mcg SQ Q30D HYDROcodone/APAP 10-325MG [[place] 10-325] 1 tab PO Q6HR PRN PRN Reason: Pain Discontinued tiZANidine [Zanaflex] 4 mg PO TID PRN PRN Reason: muscle relaxer hydrOXYzine PAMOATE [Vistaril] 25 mg PO TID Discharge Medication List Furosemide [Lasix] 40 mg PO DAILY 04/03/14 [History] Levothyroxine Sodium [Synthroid] 75 mcg PO DAILY 04/03/14 [History] Morphine Sulfate ER [Ms Contin] 30 mg PO BID 04/03/14 [History] Venlafaxine HCl [Effexor] 75 mg PO BID 04/03/14 [History] Albuterol Sulfate [Ventolin HFA] 2 puff INHALATION RT-Q6H PRN 07/24/14 [History] Amitriptyline HCl [Elavil] 75 mg PO HS 06/07/17 [History] Montelukast [Singulair] 10 mg PO HS 06/07/17 [History] Pilocarpine HCl [Salagen] 7.5 mg PO BID 06/07/17 [History] Cyanocobalamin [Vitamin B-12 Injection] 1,000 mcg SQ Q30D 06/13/18 [History] Fluticasone Nasal [place] [Flonase Nasal [place]] 2 spr EA NOSTRIL DAILY 06/13/18 [ History] HYDROcodone/APAP 10-325MG [[place] 10-325] 1 tab PO Q6HR PRN 06/13/18 [History] Nystatin 100,000 Unit/gm Powd [Mycostatin Powder] 1 applic TOPICAL BID PRN 06/13 [History] Cefuroxime Axetil [Ceftin] 500 mg PO BID #22 tab 06/19/18 [Rx] Pantoprazole [Protonix] 40 mg PO AC-BRKFST #15 tablet. 06/19/18 [Rx] Follow up Appointment(s)/Referral(s): Shukri Velasco MD [STAFF PHYSICIAN] - 06/27/18 11:40 am Katelyn Rai MD [Primary Care Provider] - 3 Days (certified ophthalmic medical technician from office will to schedule your appiontment. ) Martin Raya MD [STAFF PHYSICIAN] - 06/29/18 11:45 am Ambulatory/Diagnostic Orders: Complete Blood Count w/diff [LAB.AMB] Time Frame: 3 Days, Location: None Selected Patient Instructions/Handouts: Kidney Stones (DC), Sepsis (GEN), Ureteral Stent Placement (DC) Activity/Diet/Wound Care/Special Instructions: Diet: Consistent carb Accu-Cheks before meals and at bedtime keep dressing on neck clean/dry/intact for 24 hours after discharge Activity: Limited until follow up Leave pressure dressing to left neck on for 24 hours Discharge Disposition: HOME SELF-CARE
== END 2018-06-19 14:37 | disposition home or self-care (01) | DRG 871 ==
LOC: EC 21:59 → 6SEL 06-14 00:42 → 6ICU 06-14 12:57 → 4MS4W 06-17 14:17
PROVIDERS: ADMIT Hospitalist; ATTEND Hospitalist
PROC: 02HV33Z Insertion of Infusion Device into Superior Vena Cava, Percutaneous Approach (ICD-10-PCS; 2018-06-14)
PROC: 0T768DZ Dilation of Right Ureter with Intraluminal Device, Via Natural or Artificial Opening Endoscopic (ICD-10-PCS; principal; 2018-06-14 06:16)
DX: A41.51 Sepsis due to Escherichia coli [E. coli] (principal); R65.21 Severe sepsis with septic shock; G92 Toxic encephalopathy; N13.6 Pyonephrosis; Z68.43 Body mass index [BMI] 50.0-59.9, adult; E87.2 Acidosis; N17.9 Acute kidney failure, unspecified; E66.01 Morbid (severe) obesity due to excess calories; E87.70 Fluid overload, unspecified; R09.02 Hypoxemia; D50.9 Iron deficiency anemia, unspecified; E03.9 Hypothyroidism, unspecified; M79.7 Fibromyalgia; J45.20 Mild intermittent asthma, uncomplicated; M06.9 Rheumatoid arthritis, unspecified; M19.91 Primary osteoarthritis, unspecified site; G47.33 Obstructive sleep apnea (adult) (pediatric); G43.909 Migraine, unspecified, not intractable, without status migrainosus; F32.9 Major depressive disorder, single episode, unspecified; K59.09 Other constipation; K21.9 Gastro-esophageal reflux disease without esophagitis; Z79.890 Hormone replacement therapy; Z79.891 Long term (current) use of opiate analgesic; Z79.84 Long term (current) use of oral hypoglycemic drugs; Z79.51 Long term (current) use of inhaled steroids; Z79.899 Other long term (current) drug therapy; Z98.84 Bariatric surgery status; Z90.49 Acquired absence of other specified parts of digestive tract; Z90.710 Acquired absence of both cervix and uterus; Z96.653 Presence of artificial knee joint, bilateral; Z87.891 Personal history of nicotine dependence; Z87.442 Personal history of urinary calculi; Z87.01 Personal history of pneumonia (recurrent); Z90.11 Acquired absence of right breast and nipple; Z88.0 Allergy status to penicillin; Z80.49 Family history of malignant neoplasm of other genital organs
CPT/HCPCS: 36415; 51701; 70450; 71045; 71046; 74176; 80048; 80053; 80202; 80306; 81001; 82550; 82553; 82803; 83036; 83605; 83735; 84100; 84484; 85025; 85610; 85730; 87040; 87077; 87086; 87186; 93005; 96361; 96365; 96366; 96367; 96368; 96375; 99291

== ENCOUNTER → 2018-06-29 | Outpatient (CLI) | payer MEDICARE, OTHER ==
[2018-06-29 12:33] LABS: Anisocytosis Slight; Basophils % (A) 1 %; Eosinophils # (A) 0.1 k/uL (0-0.7); Eosinophils % (A) 1 %; HCT 29.9 % (34.0-46.0); Hypochromasia Marked; Lymphocytes # (A) 1.2 k/uL (1.0-4.8); Lymphocytes % (A) 21 %; MCH 23.8 pg (25.0-35.0); MCV 79.5 fL (80.0-100.0); Mean Platelet Volume 7.3; Microcytosis Slight; Monocytes # (A) 0.3 k/uL (0-1.0); Monocytes % (A) 5 %; Neutrophils # (A) 3.9 k/uL (1.3-7.7); Neutrophils % (A) 70 %; Platelet Count 435 k/uL (150-450); RBC 3.76 m/uL (3.80-5.40); WBC 5.6 k/uL (3.8-10.6)
[2018-06-29 12:46] LABS: Anion Gap 5 mmol/L; Blood Urea Nitrogen 13 mg/dL (7-17); Calcium 8.9 mg/dL (8.4-10.2); Carbon Dioxide 35 mmol/L (22-30); Chloride 99 mmol/L (98-107); Glucose 84 mg/dL (74-99); Potassium 4.8 mmol/L (3.5-5.1); Sodium 139 mmol/L (137-145)
== END | disposition home or self-care (01) ==
LOC: LABPAT 11:45
PROVIDERS: ATTEND Urology
DX: Z01.812 Encounter for preprocedural laboratory examination (principal); N20.0 Calculus of kidney; E78.5 Hyperlipidemia, unspecified; R35.0 Frequency of micturition; R31.29 Other microscopic hematuria
CPT/HCPCS: 36415; 80048; 85025; 87086

== ENCOUNTER 2018-07-07 07:41 | Day surgery (SDC) | payer MEDICARE, OTHER ==
--- NOTE | 2018-07-04 06:31 | P.GSHP ---
History of Present Illness H&P Date: 07/04/18 Chief Complaint: Right UPJ Calculus The patient is a 62-year-old white female with a history of calcium oxalate monohydrate urolithiasis. She was hospitalized last month with Escherichia coli sepsis of urinary origin, complicated by a 12 mm right UPJ calculus. She underwent right ureteral stent insertion June 14, 2018. Her infection has cleared and she now comes for ureteroscopic removal of the calculus. - Constitutional Constitutional: Reports weakness, Denies chills, Denies fever - Genitourinary (Female) Genitourinary: Reports flank pain, Reports kidney stones Past Medical History Past Medical History: Asthma, Fibromyalgia, GERD/Reflux, Osteoarthritis (OA), Pneumonia, Rheumatoid Arthritis (RA), Sleep Apnea/CPAP/BIPAP, Thyroid Disorder Additional Past Medical History / Comment(s): Morbid obesity, nephrolithiasis, fibromyalgia, osteoarthritis, rheumatoid arthritis, previously charted ( obstructive sleep apnea mild in severity with an AHI of 11) pt uses cpap at times, hypothyroidism, depression, chronic anemia gets b12 injections monthly, migraines, positive ALEXSANDER, acid reflux, bronchial asthma. shogrens, constipation, diverticulits, non alcoholic fatty liver History of Any Multi-Drug Resistant Organisms: None Reported Past Surgical History: Bariatric Surgery, Breast Surgery, Section, Cholecystectomy, Hysterectomy, Joint Replacement, Orthopedic Surgery, Uterine Ablation Additional Past Surgical History / Comment(s): RT PARTIAL MASTECTOMY - was'nt cacnerous, LT WRIST HAS PLATE/SCREWS, venice KNEE REPLACEMENT, HEMORROIDECTOMY, ROEX-N-Y, hemorrhoidectomy, cystoscopy removal of kidney stone, ESWL, arthroscopy left knee, sx to repair broken femur-family thinks it was lt side, cystoscopy/righ vitamin Ct ureteral stent placement Past Anesthesia/Blood Transfusion Reactions: Previous Problems w/ Anesthesia Additional Past Anesthesia/Blood Transfusion Reaction / Comment(s): STATES HAD ISSUE POST OP R/T SLEEP APNEA WHERE O2 LEVEL WAS LOW, AND WAS IN ICU Smoking Status: Former smoker - Past Family History Mother Family Medical History: Cancer Additional Family Medical History / Comment(s): UTERINE Medications and Allergies Home Medications Medication Instructions Recorded Confirmed Type Furosemide [Lasix] 40 mg PO DAILY 04/03/14 06/13/18 History Levothyroxine Sodium [Synthroid] 75 mcg PO DAILY 04/03/14 06/13/18 History Morphine Sulfate ER [Ms Contin] 30 mg PO BID 04/03/14 06/13/18 History Venlafaxine HCl [Effexor] 75 mg PO BID 04/03/14 06/13/18 History Albuterol Sulfate [Ventolin HFA] 2 puff INHALATION RT-Q6H PRN 07/24/14 06/13/18 History Amitriptyline HCl [Elavil] 75 mg PO HS 06/07/17 06/13/18 History Montelukast [Singulair] 10 mg PO HS 06/07/17 06/13/18 History Pilocarpine HCl [Salagen] 7.5 mg PO BID 06/07/17 06/13/18 History Cyanocobalamin [Vitamin B-12 1,000 mcg SQ Q30D 06/13/18 06/13/18 History Injection] Fluticasone Nasal [place] [Flonase 2 spr EA NOSTRIL DAILY 06/13/18 06/13/18 History Nasal [place]] HYDROcodone/APAP 10-325MG [[place] 1 tab PO Q6HR PRN 06/13/18 06/13/18 History 10-325] Nystatin 100,000 Unit/gm Powd 1 applic TOPICAL BID PRN 06/13/18 06/13/18 History [Mycostatin Powder] Cefuroxime Axetil [Ceftin] 500 mg PO BID #22 tab 06/19/18 Rx Pantoprazole [Protonix] 40 mg PO AC-BRKFST #15 tablet. 06/19/18 Rx Allergies Allergy/AdvReac Type Severity Reaction Status Date / Time Penicillins Allergy Unknown Verified 06/13/18 22:52 Childhood Surgical - Exam - General well developed, well nourished, no distress - Respiratory normal respiratory effort, clear to auscultation - Cardiovascular Rhythm: regular Abnormal Heart Sounds: no systolic murmur, no diastolic murmur, no rub, no S3 Gallop, no S4 Gallop, no click, no other - Abdomen Abdomen: soft, non tender, no guarding, no rigid, no rebound - Psychiatric oriented to time, oriented to person, oriented to place, speech is normal, memory intact Assessment and Plan (1) Renal calculus Status: Acute Code(s): N20.0 - CALCULUS OF KIDNEY SNOMED Code(s): 17131199 Plan: Cystoscopy, right ureteral stent removal, right ureteroscopy with holmium laser lithotripsy. The procedure was reviewed in detail with the patient and her . Potential risks were also reviewed. These include anesthesia, bleeding, infection, and ureteral injury.
[2018-07-04 12:36] VITALS: BMI 44.9
[~2018-07-07 07:41] MED LIST changes: +GENTAMICIN 160 MG in SODIUM CHLORIDE 0.9% 100 ML IVPB ONE; +HYDROmorphone 0.5 MG/0.5 ML SYRINGE IVP PRN; +LIDOCAINE 1% 20 ML VIAL (10MG/ML) FOR IV START INTRADERMA PRN
[2018-07-07 08:15] VITALS: RESP 16
[2018-07-07] MEDS ORDERED: ONDANSETRON 4 MG/2 ML VIAL IVP ONE ×2 (08:29→14:31)
[2018-07-07] MEDS ORDERED: DEXAMETHASONE SOD PHOSPHATE 4 MG/ML 1 ML VIAL IV ONE (08:29)
[2018-07-07] MEDS ORDERED: fentaNYL (PF) 50 MCG/ML 2 ML AMP ONE (11:53)
[2018-07-07] MEDS ORDERED: MIDAZOLAM 2 MG/2 ML VIAL ONE (11:53)
[2018-07-07] MEDS ORDERED: PROPOFOL 10 MG/ML 20 ML VIAL IV ONE (11:53)
[2018-07-07] MEDS ORDERED: SUCCINYLCHOLINE CHLORIDE VIAL 200 MG/10 ML VIAL IV ONE (11:53)
[2018-07-07] MEDS ORDERED: LIDOCAINE 1% INJ 10MG/ML (20 ML MDV) ONE (11:53)
[2018-07-07] MEDS ORDERED: LACTATED RINGERS 1,000 ML IV ONE ×2 (13:18)
--- NOTE | 2018-07-07 13:57 | P.OP ---
Date of Procedure: 07/07/18 Preoperative Diagnosis: Right UPJ calculus Postoperative Diagnosis: Right ureteral calculus Procedure(s) Performed: Cystoscopy, right ureteroscopy with Holmium laser lithotripsy, right ureteral stent change Anesthesia: MILDREDA Surgeon: Shukri Velasco Estimated Blood Loss (ml): 2 IV fluids (ml): 500 Pathology: none sent Condition: stable Disposition: PACU Indications for Procedure: The patient is a 62-year-old white female with a history of calcium oxalate monohydrate urolithiasis. She was hospitalized last month with Escherichia coli sepsis of urinary origin, complicated by a 12 mm right UPJ calculus. She underwent right ureteral stent insertion June 14, 2018. Her infection has cleared and she now comes for ureteroscopic removal of the calculus. Operative Findings: 12 mm right proximal ureteral calculus, fragmented to completion. Description of Procedure: The patient was taken to the operating room and placed in the dorsolithotomy position, with legs supported in Tate stirrups. The external genitalia was prepped and draped sterilely. The 30 lens was used to introduce the 22-Kosovan Stortz cystoscopic sheath through the urethra and into the bladder under direct vision. The bladder was examined in its entirety. No tumors or foreign bodies were seen. Grasping forceps were used to grasp the stent along with the cystoscope. A 0.038 inch Glidewire was passed through the stent and up to the right renal pelvis. An 11/13-Kosovan ureteral access catheter was passed over the wire, up to the proximal ureter. The mini flexible ureteroscope was advanced through the ureteral access catheter sheath and into the right renal pelvis. The calculus was identified within the right proximal ureter. The 200 micron Holmium laser probe was passed through the ureteroscope, and lithotripsy was performed. The calculus was not very dense and was fragmented readily. This was continued until the calculus had been fragmented within the ureter, and there were no remaining calculus fragments within the proximal ureter. The ureteroscope was then advanced up to the right renal pelvis. Several calculus fragments were fragmented to completion within a midpole calyx. Next, the ureteroscope was slowly withdrawn. The area within the right proximal ureter where lithotripsy had been performed was inspected. There was no evidence of ureteral perforation, although there was some edema from the impaction of the calculus. Multiple calculus fragments were identified within the right distal ureter. Lithotripsy was continued in this area to ensure that all calculus fragments were no larger than 1-2 mm in diameter. The Glidewire was passed up the ureteroscope, which was then removed. The Glidewire was backloaded into the cystoscope, which was then passed into the bladder. A 24 cm, 6-Kosovan double-J ureteral stent was placed over the wire. Proper stent positioning was verified fluoroscopically and endoscopically. The bladder was emptied and the cystoscope removed. The patient tolerated the procedure well and was taken to the recovery room in stable condition.
[2018-07-07 14:09] VITALS: TEMP 97.6
[2018-07-07 14:21] LABS: Glucose,Whole Blood 155 mg/dL (75-99)
--- NOTE | 2018-07-07 14:23 | FL ---
EXAMINATION TYPE: FL guidance operating room DATE OF EXAM: 07/07/2018 CLINICAL HISTORY: Right renal calculus TECHNIQUE: Fluoroscopy. COMPARISON: None. FINDINGS: Fluoroscopic guidance was provided during calculus treatment procedure performed by Dr. Jair trotter. A total of 58 seconds of fluoroscopic time was utilized during the procedure and one spot imag e is acquired. IMPRESSION: As Above.
[2018-07-07 15:25] VITALS: BP 131/81; PULSE 90
== END 2018-07-07 15:46 | disposition home or self-care (01) ==
LOC: OR 07:41
PROVIDERS: ATTEND Urology
DX: N20.1 Calculus of ureter (principal); J45.909 Unspecified asthma, uncomplicated; M79.7 Fibromyalgia; K21.9 Gastro-esophageal reflux disease without esophagitis; M19.90 Unspecified osteoarthritis, unspecified site; M06.9 Rheumatoid arthritis, unspecified; E66.01 Morbid (severe) obesity due to excess calories; Z68.42 Body mass index [BMI] 45.0-49.9, adult; G47.33 Obstructive sleep apnea (adult) (pediatric); E03.9 Hypothyroidism, unspecified; F32.9 Major depressive disorder, single episode, unspecified; D64.9 Anemia, unspecified; G43.909 Migraine, unspecified, not intractable, without status migrainosus; M35.00 Sjogren syndrome, unspecified; K76.0 Fatty (change of) liver, not elsewhere classified; E11.9 Type 2 diabetes mellitus without complications; G89.29 Other chronic pain; Z87.442 Personal history of urinary calculi; Z99.89 Dependence on other enabling machines and devices; Z79.890 Hormone replacement therapy; Z79.51 Long term (current) use of inhaled steroids; Z79.84 Long term (current) use of oral hypoglycemic drugs; Z79.899 Other long term (current) drug therapy; Z88.0 Allergy status to penicillin; Z98.84 Bariatric surgery status; Z90.49 Acquired absence of other specified parts of digestive tract; Z90.11 Acquired absence of right breast and nipple; Z96.653 Presence of artificial knee joint, bilateral
CPT/HCPCS: 52356; C2625; C1769; C1758; J2250; J0330; J1100; J2405; J2001; J3010; J1580; J2704

== ENCOUNTER → 2018-07-21 | Outpatient (CLI) | payer MEDICARE, OTHER ==
--- NOTE | 2018-07-24 10:05 | MM ---
Reason for exam: screening (asymptomatic). Last mammogram was performed 1 year and 4 months ago. History: Patient is postmenopausal. Benign core biopsy of the left breast, 1991. Took estrogen for 2 years. Physical Findings: A clinical breast exam by your physician is recommended on an annual basis and results should be correlated with mammographic findings. MG 3D Screening Mammo W/Cad Bilateral CC, MLO, and XCCL view(s) were taken. Prior study comparison: March 29, 2017, bilateral MG 3d screening mammo w/cad. January 14, 2016, bilateral MG screening mammo w CAD. There are scattered fibroglandular densities. There is no discrete abnormality. No significant changes when compared with prior studies. ASSESSMENT: Negative, BI-RAD 1 RECOMMENDATION: Routine screening mammogram of both breasts in 1 year.
== END | disposition home or self-care (01) ==
LOC: RADMAMWWP 10:49
PROVIDERS: ATTEND Family Medicine
DX: Z12.31 Encounter for screening mammogram for malignant neoplasm of breast (principal)
CPT/HCPCS: 77063; 77067

== ENCOUNTER → 2018-08-17 | Outpatient (CLI) | payer MEDICARE, OTHER ==
[2018-08-17 10:38] LABS: Anisocytosis Slight; Basophils % (A) 0 %; Eosinophils # (A) 0.1 k/uL (0-0.7); Eosinophils % (A) 2 %; HCT 29.2 % (34.0-46.0); HGB 8.7 gm/dL (11.4-16.0); Hypochromasia Marked; Lymphocytes % (A) 16 %; MCH 23.6 pg (25.0-35.0); MCHC 29.9 g/dL (31.0-37.0); MCV 78.8 fL (80.0-100.0); Mean Platelet Volume 8.3; Microcytosis Slight; Monocytes # (A) 0.4 k/uL (0-1.0); Monocytes % (A) 6 %; Neutrophils # (A) 4.5 k/uL (1.3-7.7); Neutrophils % (A) 74 %; Platelet Count 276 k/uL (150-450); WBC 6.1 k/uL (3.8-10.6)
--- NOTE | 2018-08-17 11:04 | US ---
EXAMINATION TYPE: US kidneys/renal and bladder DATE OF EXAM: 08/17/2018 COMPARISON: CT 2018 CLINICAL HISTORY: N20.1 CALCULUS OF URETER.R93.4 HX OF HYDRONEPHROSIS. History of kidney stones and h ydronephrosis EXAM MEASUREMENTS: Right Kidney: 9.9 x 5.1 x 5.5 cm Left Kidney: 10.5 x 5.1 x 5.0 cm Technically difficult study and limited visualization of kidneys due to patient body habitus and over lying bowel gas Right Kidney: 0.6cm echogenic calculus inferior pole Left Kidney: 0.6cm echogenic calculus superior pole Bladder: wnl as seen Bilateral Jets seen: no There is no evidence for hydronephrosis at this point in time. No masses are identified. The urinary bladder is anechoic. Bilateral ureteral jets are seen. Partial visualization of the hepatic parench yma demonstrates a diffusely hyperechoic echotexture most commonly related to hepatic steatosis. IMPRESSION: Limited exam due to patient body habitus however there are 6 mm nonobstructing renal calculi apprecia haley bilaterally. Incidental finding of probable at least moderate grade hepatic steatosis is partiall y visualized.
[2018-08-17 15:50] LABS: Iron Saturation 12.29 (12.00-45.00)
[2018-08-17 15:54] LABS: LDL Cholesterol,Calculated 57.2 mg/dL (0.0-131.0); VLDL Calculation 21.8 mg/dL (5.00-40.00)
[2018-08-17 16:37] LABS: Hemoglobin A1C 5.7 % (4.0-6.0)
== END | disposition home or self-care (01) ==
LOC: LABWHC1 09:33
PROVIDERS: ATTEND Family Medicine
DX: N20.0 Calculus of kidney (principal); E11.9 Type 2 diabetes mellitus without complications; D50.9 Iron deficiency anemia, unspecified
CPT/HCPCS: 36415; 76770; 80061; 83036; 83540; 83550; 85025

== ENCOUNTER → 2018-08-17 | Outpatient (CLI) | payer MEDICARE, OTHER | END | disposition home or self-care (01) | LOC: RADUSWWP 09:30 | PROVIDERS: ATTEND Urology | DX: Z53.9 Procedure and treatment not carried out, unspecified reason (principal) ==

== ENCOUNTER → 2019-02-16 | Outpatient (CLI) | payer MEDICARE | END | disposition home or self-care (01) | LOC: LABWHC1 15:27 | PROVIDERS: ATTEND Pain Medicine Pain Medicine | DX: K71.9 Toxic liver disease, unspecified (principal); N14.2 Nephropathy induced by unspecified drug, medicament or biological substance | CPT/HCPCS: 36415; 80171; 82565; 84450; 84460; 84520 ==

== ENCOUNTER → 2019-06-06 | Outpatient (CLI) | payer MEDICARE, OTHER | END | disposition home or self-care (01) | LOC: LABWHC1 14:22 | PROVIDERS: ATTEND Pain Medicine Pain Medicine | DX: K71.9 Toxic liver disease, unspecified (principal); N14.2 Nephropathy induced by unspecified drug, medicament or biological substance | CPT/HCPCS: 80171 ==

== ENCOUNTER → 2019-08-07 | Outpatient (CLI) | payer MEDICARE ==
[2019-08-07 18:46] LABS: African American GFR (CKD) 91.6 (60.0-200.0)
== END | disposition home or self-care (01) ==
LOC: LABWHC1 13:14
PROVIDERS: ATTEND Pain Medicine Pain Medicine
DX: K71.9 Toxic liver disease, unspecified (principal); N14.2 Nephropathy induced by unspecified drug, medicament or biological substance
CPT/HCPCS: 36415; 82565; 84450; 84460; 84520

== ENCOUNTER → 2019-08-07 | Outpatient (CLI) | payer MEDICARE ==
--- NOTE | 2019-08-09 08:38 | MM ---
Reason for exam: screening (asymptomatic). Last mammogram was performed 1 year and 1 month ago. History: Patient is postmenopausal. Benign core biopsy of the left breast, 1991. Took estrogen for 2 years. Physical Findings: A clinical breast exam by your physician is recommended on an annual basis and results should be correlated with mammographic findings. MG 3D Screening Mammo W/Cad Bilateral CC, MLO, and XCCL view(s) were taken. Prior study comparison: July 21, 2018, bilateral MG 3d screening mammo w/cad. March 29, 2017, bilateral MG 3d screening mammo w/cad. There are scattered fibroglandular densities. ASSESSMENT: Benign, BI-RAD 2 RECOMMENDATION: Routine screening mammogram of both breasts in 1 year.
== END | disposition home or self-care (01) ==
LOC: RADMAMWWP 13:34
PROVIDERS: ATTEND Family Medicine
DX: Z12.31 Encounter for screening mammogram for malignant neoplasm of breast (principal)
CPT/HCPCS: 77063; 77067

== ENCOUNTER → 2020-04-29 | Outpatient (CLI) | payer MEDICARE ==
[2020-04-29 12:34] LABS: Anisocytosis Slight; Basophils % (A) 1 %; Eosinophils # (A) 0.2 k/uL (0-0.7); Eosinophils % (A) 3 %; HCT 27.4 % (34.0-46.0); HGB 7.3 gm/dL (11.4-16.0); Hypochromasia Marked; Lymphocytes # (A) 1.3 k/uL (1.0-4.8); Lymphocytes % (A) 17 %; MCH 18.6 pg (25.0-35.0); MCHC 26.8 g/dL (31.0-37.0); MCV 69.2 fL (80.0-100.0); Mean Platelet Volume 9.3; Microcytosis Marked; Monocytes # (A) 0.4 k/uL (0-1.0); Monocytes % (A) 5 %; Neutrophils # (A) 5.3 k/uL (1.3-7.7); Neutrophils % (A) 72 %; Platelet Count 297 k/uL (150-450); Poikilocytosis Slight; RBC 3.95 m/uL (3.80-5.40); RDW 16.9 % (11.5-15.5); WBC 7.3 k/uL (3.8-10.6)
== END | disposition home or self-care (01) ==
LOC: LABWHC1 12:07
PROVIDERS: ATTEND Family Medicine
DX: D64.9 Anemia, unspecified (principal)
CPT/HCPCS: 36415; 85025

== ENCOUNTER → 2020-05-08 | Outpatient (CLI) | payer MEDICARE ==
[2020-05-08 12:19] LABS: Anisocytosis Slight; Basophils % (A) 1 %; Eosinophils # (A) 0.1 k/uL (0-0.7); Eosinophils % (A) 2 %; HCT 28.2 % (34.0-46.0); HGB 7.6 gm/dL (11.4-16.0); Hypochromasia Marked; Lymphocytes # (A) 0.9 k/uL (1.0-4.8); Lymphocytes % (A) 15 %; MCH 18.8 pg (25.0-35.0); MCHC 27.1 g/dL (31.0-37.0); MCV 69.2 fL (80.0-100.0); Mean Platelet Volume 7.9; Microcytosis Marked; Monocytes # (A) 0.2 k/uL (0-1.0); Monocytes % (A) 4 %; Neutrophils # (A) 4.6 k/uL (1.3-7.7); Neutrophils % (A) 78 %; Platelet Count 254 k/uL (150-450); Poikilocytosis Slight; RBC 4.07 m/uL (3.80-5.40); RDW 17.3 % (11.5-15.5); WBC 5.9 k/uL (3.8-10.6)
[2020-05-08 17:44] LABS: Urine Creatinine 13.2 mg/dL
[2020-05-08 20:05] LABS: % Iron Saturation 3.33 (12.00-45.00); African American GFR (CKD) 106.9 (60.0-200.0); Albumin 4.2 g/dL (3.80-4.90); Albumin/Globulin Ratio 1.75 (1.60-3.17); Anion Gap 6.5 mmol/L (4.00-12.00); BUN/Creat Ratio 28.57 Ratio (12.00-20.00); Calcium 9.2 mg/dL (8.7-10.3); Carbon Dioxide 31.5 mmol/L (21.6-31.8); Chol/HDL Ratio 2.53; Globulin 2.4 g/dL (1.6-3.3); LDL Cholesterol,Calculated 56.4 mg/dL (0.0-131.0); Non-African American GFR(CKD) 92.2 (60.0-200.0); Potassium 4.6 mmol/L (3.5-5.5); Total Bilirubin 0.4 mg/dL (0.2-1.2); Total Protein 6.6 g/dL (6.2-8.2); VLDL Calculation 15.6 mg/dL (5.00-40.00)
[2020-05-08 20:07] LABS: T4, Free (Free Thyroxine) 1.1 ng/dL (0.80-1.80)
[2020-05-08 22:45] LABS: Hemoglobin A1C 5.8 % (4.0-6.0)
== END | disposition home or self-care (01) ==
LOC: LABWHC1 10:17
PROVIDERS: ATTEND Family Medicine
DX: Z00.00 Encounter for general adult medical examination without abnormal findings (principal); D64.9 Anemia, unspecified; E11.9 Type 2 diabetes mellitus without complications; E55.9 Vitamin D deficiency, unspecified; E03.9 Hypothyroidism, unspecified
CPT/HCPCS: 36415; 80053; 80061; 82043; 82306; 82570; 82607; 83036; 83540; 83550; 84439; 84443; 85025

== ENCOUNTER → 2020-07-21 | Outpatient (CLI) | payer MEDICARE ==
[2020-07-21 17:37] LABS: Urine Alcohol Negative (Negative); Urine Barbiturate Negative (Negative); Urine Cocaine Negative (Negative); Urine Methadone Negative (Negative); Urine Opiates Positive (Negative); Urine Phencyclidine Negative (Negative)
== END | disposition home or self-care (01) ==
LOC: LABWHC1 09:42
PROVIDERS: ATTEND Pain Medicine Pain Medicine
DX: Z51.81 Encounter for therapeutic drug level monitoring (principal); Z79.899 Other long term (current) drug therapy
CPT/HCPCS: 80306

== ENCOUNTER → 2020-10-06 | Outpatient (CLI) | payer MEDICARE ==
[2020-10-07 04:54] LABS: Urine Creatinine 35.6 mg/dL
--- NOTE | 2020-10-07 13:18 | MM ---
Reason for exam: screening (asymptomatic). Last mammogram was performed 1 year and 2 months ago. History: Patient is postmenopausal. Benign core biopsy of the left breast, 1991. Took estrogen for 2 years. Physical Findings: A clinical breast exam by your physician is recommended on an annual basis and results should be correlated with mammographic findings. MG 3D Screening Mammo W/Cad Bilateral CC and MLO view(s) were taken. Prior study comparison: August 07, 2019, bilateral MG 3d screening mammo w/cad. July 21, 2018, bilateral MG 3d screening mammo w/cad. There are scattered fibroglandular densities. There is chronic nodularity in the right breast. No significant changes when compared with prior studies. ASSESSMENT: Benign, BI-RAD 2 RECOMMENDATION: Routine screening mammogram of both breasts in 1 year.
--- NOTE | 2020-10-07 15:46 | BD ---
EXAMINATION TYPE: Axial Bone Density DATE OF EXAM: 10/06/2020 COMPARISON: 11/22/17 CLINICAL HISTORY: Height: 62 IN Weight: 264 LBS FRAX RISK QUESTIONS: History of Fracture in Adulthood: LT FEMUR (KNEE) FX AGE 59; LT TIBIA AGE 66; BUDDY ANKLES AGE 54, LT W RIST FX AGE 55 Secondary Osteoporosis: Rheumatoid Arthritis: YES RISK FACTORS HISTORY OF: History of Wrist Fracture: LT WRIST AGE 55 Wrist (left): YES LT WRIST AGE 55 Family History of Osteoporosis: MOTHER, GRANDMOTHER, Active: LIMITED Diet low in dairy products/other sources of calcium: YES Postmenopausal woman: TOTAL HYST AGE 48 Frequent falls: YES,VERTIGO MEDICATIONS: Thyroid Medications: YES Which medication: Levothyroxine How Lon+ YEARS Additional Medications: VIT D3, LEVOTHYROXINE, DIABETES MEDS, LASIX, B12, FIBROMYALGIA MEDS, VICODIN, MORPHINE,CHOLESTEROL MEDS, EXAM MEASUREMENTS: Bone mineral densitometry was performed using the Dry Lube System. Bone mineral density as measured about the Lumbar spine is: ----- L1-L4(G/cm2): 1.167 T Score Values are as follows: ----- L2: -1.1 ----- L3: 0.3 ----- L4: 1.0 ----- L1-L4: -1.0 Bone mineral density has: Increased 5.7% since study of: 11/22/2017 Bone mineral density about the R hip (g/cm2): 0.746 Bone mineral density about the L hip (g/cm2): 0.766 T Score values are as follows: -----R Neck: -2.1 -----L Neck: -2.0 -----R Total: -2.2 -----L Total: -1.9 Bone mineral density has: Decreased -18.4% since study of: 11/22/2017 IMPRESSION: Osteopenia (T Score between -2.5 and -1). There is slightly increased risk of fracture and the patient may be considered for treatment. Re-Screen 2-5 years. NOTE: T-SCORE=SD OF THE YOUNG ADULT MEAN.
== END | disposition home or self-care (01) ==
LOC: RADMAMWWP 14:10
PROVIDERS: ATTEND Family Medicine
DX: Z12.31 Encounter for screening mammogram for malignant neoplasm of breast (principal); M85.80 Other specified disorders of bone density and structure, unspecified site; E11.9 Type 2 diabetes mellitus without complications
CPT/HCPCS: 77063; 77067; 77080; 82043; 82570

== ENCOUNTER → 2021-03-05 | Outpatient (CLI) | payer MEDICARE | END | disposition home or self-care (01) | LOC: LABWHC1 12:03 | PROVIDERS: ATTEND Psychiatry & Neurology Pain Medicine | DX: E55.9 Vitamin D deficiency, unspecified (principal); R51.0 Headache with orthostatic component, not elsewhere classified | CPT/HCPCS: 36415; 82306; 82310; 83970 ==

== ENCOUNTER → 2021-05-22 | Outpatient (CLI) | payer MEDICARE ==
--- NOTE | 2021-05-22 13:26 | US ---
EXAMINATION TYPE: US venous doppler duplex LE DATE OF EXAM: 05/22/2021 1:06 PM COMPARISON: NONE CLINICAL HISTORY: R22.42 R22.41. bilateral leg edema SIDE PERFORMED: bilateral TECHNIQUE: The lower extremity deep venous system is examined utilizing real time linear array sonog kg with graded compression, doppler sonography and color-flow sonography. VESSELS IMAGED: Common Femoral Vein Deep Femoral Vein Greater Saphenous Vein * Femoral Vein Popliteal Vein Small Saphenous Vein * Proximal Calf Veins (* superficial vessels) Right Leg: no evidence of DVT as visualized Left Leg: no evidence of DVT as visualized IMPRESSION: No evidence for DVT at this time.
== END | disposition home or self-care (01) ==
LOC: RADUSWWP 12:38
PROVIDERS: ATTEND Internal Medicine Hematology & Oncology
DX: R60.0 Localized edema (principal)
CPT/HCPCS: 93970

== ENCOUNTER → 2021-10-07 | Outpatient (CLI) | payer MEDICARE ==
--- NOTE | 2021-10-08 12:11 | MM ---
Reason for exam: screening (asymptomatic). Last mammogram was performed 1 year ago. History: Patient is postmenopausal. Benign core biopsy of the left breast, 1991. Took estrogen for 2 years. Physical Findings: A clinical breast exam by your physician is recommended on an annual basis and results should be correlated with mammographic findings. MG 3D Screening Mammo W/Cad Bilateral CC and MLO view(s) were taken. Prior study comparison: October 06, 2020, bilateral MG 3d screening mammo w/cad. August 07, 2019, bilateral MG 3d screening mammo w/cad. There are scattered fibroglandular densities. There are benign appearing round linear calcifications bilaterally. There is chronic nodularity in the right breast. There is no discrete abnormality. ASSESSMENT: Benign, BI-RAD 2 RECOMMENDATION: Routine screening mammogram of both breasts in 1 year.
== END | disposition home or self-care (01) ==
LOC: RADMAMWWP 10:23
PROVIDERS: ATTEND Family Medicine
DX: Z12.31 Encounter for screening mammogram for malignant neoplasm of breast (principal); Z78.0 Asymptomatic menopausal state
CPT/HCPCS: 77063; 77067

== ENCOUNTER → 2021-10-07 | Outpatient (CLI) | payer MEDICARE ==
[2021-10-07 15:44] LABS: Albumin 3.8 g/dL (3.8-4.9); Albumin/Globulin Ratio 1.54 (1.60-3.17); Bilirubin, Conjugated 0.29 mg/dL (0.20-0.40); Bilirubin,Unconjugated 0.24 mg/dL (0.20-1.00); Globulin 2.5 g/dL (1.6-3.3); Total Bilirubin 0.5 mg/dL (0.30-1.20); Total Protein 6.3 g/dL (6.2-8.2)
== END | disposition home or self-care (01) ==
LOC: LABWHC1 10:10
PROVIDERS: ATTEND Family Medicine
DX: R74.8 Abnormal levels of other serum enzymes (principal)
CPT/HCPCS: 36415; 80076; 82977

== ENCOUNTER → 2021-11-23 | Outpatient (CLI) | payer MEDICARE ==
--- NOTE | 2021-11-23 15:12 | CT ---
EXAMINATION TYPE: CT abdomen pelvis wo con DATE OF EXAM: 11/23/2021 HISTORY: bilateral flank pain, hx of stones CT DLP: 1056.9 mGycm. Automated Exposure Control for Dose Reduction was Utilized. TECHNIQUE: CT scan of the abdomen and pelvis is performed without oral or IV contrast. COMPARISON: Prior CT June 13, 2018 FINDINGS: Within the limitations of a non-contrast study, the following observations are made. LUNG BASES: No significant abnormality is appreciated. LIVER/GB: Liver remains diffusely hypodense consistent with diffuse fatty infiltration. Cholecystecto my clips are redemonstrated. No new biliary ductal dilatation is seen. Mild hepatomegaly with right h epatic lobe redemonstrated felt improved or diminished in size from 2018 . PANCREAS: There is moderate to severe fat replaced atrophy of pancreas redemonstrated. SPLEEN: Spleen is mildly enlarged at 13.1 cm on coronal image 71 not significantly changed versus manuel or. ADRENALS: No significant abnormality is seen. KIDNEYS: There are approximately 8 calculi scattered throughout right kidney increased in number from prior with dependent 8 mm calculus in the right pelvis axial image 54 current study. No right-sided hydronephrosis. There are approximately 10 scattered calculi throughout left kidney with larger calcu li lower pole level including staghorn 10 mm-type calculus coronal image 60. There is a 7 mm calculus in the distal ureter just before the UVJ axial image 120 causing mild left-sided hydronephrosis. No intraluminal calculus in the bladder. BOWEL: Surgical sutures from gastric bypass surgery are redemonstrated at level of diaphragmatic hiat us. There is persistent and stable small hiatal hernia . Additional surgical sutures left mid abdomen redemonstrated. No suspicious small or large bowel dilatation. LYMPH NODES: No greater than 1cm abdominal lymph nodes. Few Prominent but scattered subcentimeter mes enteric lymph nodes are redemonstrated. OSSEOUS STRUCTURES: There is advanced multilevel spurring in the thoracolumbar spine. There is exagge rated lumbar lordosis and straightening of the spine at thoracic levels redemonstrated. OTHER: Fat-containing ventral wall hernia lower abdomen near the level of umbilicus is redemonstrated . IMPRESSION: More prominent bilateral nephrolithiasis with new obstructing 7 mm calculus distal left ureter causin g mild left-sided hydronephrosis.
== END | disposition home or self-care (01) ==
LOC: RADCTMAIN 13:54
PROVIDERS: ATTEND Urology
DX: N20.0 Calculus of kidney (principal); N13.30 Unspecified hydronephrosis
CPT/HCPCS: 74176

== ENCOUNTER → 2021-11-25 | Outpatient (CLI) | payer MEDICARE ==
[2021-11-25 15:08] LABS: Basophils # (A) 0.02 X 10*3/uL (0.00-0.10); Basophils % (A) 0.4 %; Eosinophils # (A) 0.07 X 10*3/uL (0.04-0.35); Eosinophils % (A) 1.3 %; HGB 12.3 g/dL (12.0-15.0); Lymphocytes # (A) 1.06 X 10*3/uL (0.90-5.00); Lymphocytes % (A) 19.9 %; MCHC 30.8 g/dL (32.0-37.0); MCV 94.3 fL (80.0-97.0); Mean Platelet Volume 11.8 fL (9.5-12.2); Monocytes % (A) 5.6 %; Neutrophils # (A) 3.84 X 10*3/uL (1.80-7.70); Neutrophils % (A) 72.2 %; Platelet Count 184 X 10*3/uL (140-440); RBC 4.24 X 10*6/uL (4.10-5.20); RDW 14.3 % (11.5-14.5); WBC 5.32 X 10*3/uL (4.50-10.00)
== END | disposition home or self-care (01) ==
LOC: LABPAT 09:16
PROVIDERS: ATTEND Urology
DX: Z01.812 Encounter for preprocedural laboratory examination (principal); N20.2 Calculus of kidney with calculus of ureter
CPT/HCPCS: 36415; 85025

== ENCOUNTER 2021-11-26 06:53 | Day surgery (SDC) | payer MEDICARE ==
[2021-11-25 10:36] VITALS: BMI 41.1
[~2021-11-26 06:53] MED LIST changes: -GENTAMICIN 160 MG in SODIUM CHLORIDE 0.9% 100 ML IVPB ONE; -HYDROmorphone 0.5 MG/0.5 ML SYRINGE IVP PRN; -LACTATED RINGERS 1,000 ML IV SCH; +LEVOFLOXACIN 500MG-D5W PMX 500 MG in DEXTROSE/WATER 1 100ML.BAG IVPB PRN; -LIDOCAINE 1% 20 ML VIAL (10MG/ML) FOR IV START INTRADERMA PRN
--- NOTE | 2021-11-26 07:29 | XR ---
EXAMINATION TYPE: XR KUB DATE OF EXAM: 11/26/2021 Comparison: Correlation CT 11/23/2021 Clinical History: 65 year-old female kidney stones, preoperative evaluation for stent placement today Findings: Nonobstructive bowel gas pattern though with gassy colon and mild to moderate stool. Post surgical ch anges below the GE junction and also cholecystectomy clips. 1.1 cm calculus within the right renal pelvis when correlating with CT. 1.3 cm right lower pole renal calculus. 1.3 cm left mid to lower pole renal calculus. Known 7 mm left UVJ/distal ureteral calculus. Degenerated dextroconvex curvature lumbar spine. Impression: 1. A couple right renal calculi. The 1.1 cm calculus within the right renal pelvis and correlating wi th CT. Smaller calculi seen on CT are not radiographically apparent. 2. 1.3 cm left mid to lower pole renal calculus. 3. Known 7 mm left UVJ/distal ureteral calculus when correlating with CT.
[2021-11-26] MEDS ORDERED: LACTATED RINGERS 1,000 ML IV ONE ×2 (08:01)
[2021-11-26] MEDS ORDERED: ONDANSETRON 4 MG/2 ML VIAL ONE (08:02)
[2021-11-26 08:05] LABS: Glucose,Whole Blood 88 mg/dL (75-99)
[2021-11-26] MEDS ORDERED: ONDANSETRON 4 MG/2 ML VIAL IVP ONE (08:05)
--- NOTE | 2021-11-26 08:34 | P.GSHP ---
History of Present Illness H&P Date: 11/26/21 Chief Complaint: Flank pain The patient is a 65-year-old white female with a history of recurrent urolithiasis. She now presents with bilateral flank pain. Computed tomography scan has shown a left distal ureteral calculus, a left lower pole renal calculus, and right renal calculi including one within the right renal pelvis. - Constitutional Constitutional: Denies chills, Denies fever - Gastrointestinal Gastrointestinal: Reports nausea, Denies vomiting - Genitourinary (Female) Genitourinary: Reports flank pain, Reports kidney stones Past Medical History Past Medical History: Asthma, Diabetes Mellitus, Fibromyalgia, GERD/Reflux, Hyperlipidemia, Osteoarthritis (OA), Pneumonia, Rheumatoid Arthritis (RA), Sleep Apnea/CPAP/BIPAP, Thyroid Disorder Additional Past Medical History / Comment(s): kidney stones-iCU for 7 days due to sepsis from blocked kidney stone,, no cpap used(sleeps in recliner), hiatal hernia, constipation, fatty liver, anemia, History of Any Multi-Drug Resistant Organisms: None Reported Past Surgical History: Bariatric Surgery, Breast Surgery, Section, Cholecystectomy, Hysterectomy, Joint Replacement, Orthopedic Surgery, Uterine Ablation Additional Past Surgical History / Comment(s): LT WRIST HAS PLATE/SCREWS, venice KNEE REPLACEMENT, HEMORROIDECTOMY, ROEX-N-Y, hemorrhoidectomy, cystoscopy removal of kidney stone, arthroscopy left knee, sx to repair broken femur/plate,-left breast lumpectomy, cystoscopy/rt ureteral stent placement, venice cataracts Past Anesthesia/Blood Transfusion Reactions: Previous Problems w/ Anesthesia Additional Past Anesthesia/Blood Transfusion Reaction / Comment(s): STATES HAD ISSUE POST OP R/T SLEEP [facility]NEA WHERE O2 LEVEL WAS LOW, AND WAS IN ICU 2009 Smoking Status: Former smoker - Past Family History Mother Family Medical History: Cancer Additional Family Medical History / Comment(s): UTERINE Medications and Allergies Home Medications Medication Instructions Recorded Confirmed Type Furosemide [Lasix] 40 mg PO DAILY 04/03/14 11/26/21 History Levothyroxine Sodium [Synthroid] 75 mcg PO DAILY 04/03/14 11/25/21 History Morphine Sulfate ER [Ms Contin] 30 mg PO BID 04/03/14 11/25/21 History Albuterol Sulfate [Ventolin HFA] 2 puff INHALATION RT-Q6H PRN 07/24/14 11/25/21 History Amitriptyline HCl [Elavil] 75 mg PO BID 06/07/17 11/25/21 History Montelukast [Singulair] 10 mg PO HS 06/07/17 11/25/21 History Cyanocobalamin [Vitamin B-12 1,000 mcg SQ Q30D 06/13/18 11/26/21 History Injection] tiZANidine HCL [Zanaflex] 4 mg PO BID 07/04/18 11/25/21 History Gabapentin [Neurontin] 400 mg PO BID 06/18/20 11/25/21 History Atorvastatin Calcium [Lipitor] 10 mg PO HS 11/25/21 11/26/21 History HYDROcodone/APAP 10-325MG [[place] 1 tab PO BID 11/25/21 11/26/21 History 10-325] Miralax Powder 1 applicate PO DAILY 11/25/21 11/25/21 History Omeprazole(Dose Unknown) 1 tab PO HS 11/25/21 11/25/21 History Semaglutide [Ozempic] 1 mg SQ IVAN 11/25/21 11/26/21 History Venlafaxine HCl [Effexor] 75 mg PO BID 11/25/21 11/25/21 History Allergies Allergy/AdvReac Type Severity Reaction Status Date / Time Penicillins Allergy Rash/Hives Verified 11/26/21 07:40 Surgical - Exam Vital Signs Temp Pulse Resp BP Pulse Ox 97.0 F L 85 18 131/68 93 L 11/26/21 07:30 11/26/21 07:30 11/26/21 07:30 11/26/21 07:30 11/26/21 07:30 - General well developed, well nourished, no distress - Neck no masses, trachea midline - Respiratory normal respiratory effort - Abdomen Abdomen: soft, tender (Mild right CVA tenderness), no guarding, no rigid, no rebound - Psychiatric oriented to time, oriented to person, oriented to place, speech is normal, memory intact Results - Imaging CT scan - abdomen: report reviewed, image reviewed Assessment and Plan (1) Renal calculus Current Visit: No Status: Acute Code(s): N20.0 - CALCULUS OF KIDNEY SNOMED Code(s): 75715383 (2) Calculus of ureter Current Visit: No Status: Acute Code(s): N20.1 - CALCULUS OF URETER SNOMED Code(s): 27417845 (3) Hydronephrosis with obstructing calculus Current Visit: No Status: Acute Code(s): N13.2 - HYDRONEPHROSIS WITH RENAL AND URETERAL CALCULOUS OBSTRUCTION SNOMED Code(s): 46269278 Plan: Cystoscopy, bilateral ureteral stent insertion. This will relieve obstruction and prevent severe renal colic. She will undergo secondary ureteroscopy with laser lithotripsy bilaterally. The rationale for this approach has been reviewed in detail with the patient and her .
[2021-11-26] MEDS ORDERED: LIDOCAINE 1% INJ 10MG/ML (20 ML MDV) ONE (08:37)
[2021-11-26] MEDS ORDERED: fentaNYL (PF) 50 MCG/ML 2 ML AMP ONE (08:37)
[2021-11-26] MEDS ORDERED: MIDAZOLAM 2 MG/2 ML VIAL ONE (08:37)
[2021-11-26] MEDS ORDERED: SUCCINYLCHOLINE CHLORIDE 100 MG/5 ML SYR IV ONE (08:37)
[2021-11-26] MEDS ORDERED: PROPOFOL 10 MG/ML 20 ML VIAL IV ONE (08:37)
--- NOTE | 2021-11-26 09:20 | P.OP ---
Date of Procedure: 11/26/21 Preoperative Diagnosis: Left ureteral calculus, bilateral renal calculi Postoperative Diagnosis: Same Procedure(s) Performed: Cystoscopy, bilateral ureteral stent insertion Anesthesia: MILDREDA Surgeon: Shukri Velasco Estimated Blood Loss (ml): 0 IV fluids (ml): 500 Pathology: none sent Condition: stable Disposition: PACU Indications for Procedure: The patient is a 65-year-old white female with a history of recurrent urolithiasis. She now presents with bilateral flank pain. Computed tomography scan has shown a left distal ureteral calculus, a left lower pole renal calculus, and right renal calculi including one within the right renal pelvis. Operative Findings: Successful bilateral stent insertion Description of Procedure: The patient was taken to the operating room and placed in the dorsolithotomy position, with legs supported in Tate stirrups. The external genitalia was prepped and draped sterilely. The 30 lens was used to introduce the 22-Serbian Stortz cystoscopic sheath through the urethra and into the bladder under direct vision. The bladder was examined in its entirety. Both ureteral orifices were of normal anatomic location and configuration, and clear urine effluxed from both. No tumors or foreign bodies were seen. A 0.035 inch Glidewire was passed through the cystoscope. The left ureteral orifice was cannulated, and the Glidewire was slowly advanced up to the renal pelvis. No resistance was met within the distal ureter, and no calculi were seen on fluoroscopy, suggesting that the left distal ureteral calculus may have passed. A 24 cm, 6-Serbian double-J ureteral stent was placed over the wire. Proper stent positioning was verified fluoroscopically and endoscopically. The same was then repeated on the contralateral side. The bladder was emptied and the cystoscope removed. The patient tolerated the procedure well was taken to the recovery room in stable condition.
[2021-11-26 09:32] LABS: Glucose,Whole Blood 87 mg/dL (75-99)
--- NOTE | 2021-11-26 09:32 | FL ---
EXAMINATION TYPE: FL guidance operating room DATE OF EXAM: 11/26/2021 CLINICAL HISTORY: Bilateral renal calculi. TECHNIQUE: Fluoroscopy. COMPARISON: Same day abdominal x-ray. FINDINGS: Fluoroscopic guidance was provided during bilateral ureter stent procedure performed by Dr Hu Velasco. A total of 16 seconds of fluoroscopic time was utilized during the procedure and 2 spot im ages are acquired. Images acquired show proximal portion of bilateral ureter stents. IMPRESSION: As Above.
[2021-11-26] MEDS ORDERED: HYDROmorphone 1 MG/ML 1 ML SYRINGE ONE (09:35)
[2021-11-26] MEDS ORDERED: HYDROmorphone 1 MG/ML 1 ML SYRINGE IVP ONE ×2 (09:37→09:43)
[2021-11-26 09:41] VITALS: TEMP 97.4
[2021-11-26] MEDS ORDERED: fentaNYL (PF) 50 MCG/ML 2 ML AMP IVP ONE ×2 (09:54→10:06)
[2021-11-26 10:19] VITALS: RESP 16
[2021-11-26 10:50] VITALS: BP 116/63; PULSE 79
== END 2021-11-26 11:19 | disposition home or self-care (01) ==
LOC: OR 06:53
PROVIDERS: ATTEND Urology
DX: N20.2 Calculus of kidney with calculus of ureter (principal); J45.909 Unspecified asthma, uncomplicated; E11.9 Type 2 diabetes mellitus without complications; M79.7 Fibromyalgia; K21.9 Gastro-esophageal reflux disease without esophagitis; E78.5 Hyperlipidemia, unspecified; M19.90 Unspecified osteoarthritis, unspecified site; Z87.01 Personal history of pneumonia (recurrent); M06.9 Rheumatoid arthritis, unspecified; G47.33 Obstructive sleep apnea (adult) (pediatric); E07.9 Disorder of thyroid, unspecified; Z87.442 Personal history of urinary calculi; Z86.19 Personal history of other infectious and parasitic diseases; K44.9 Diaphragmatic hernia without obstruction or gangrene; K76.0 Fatty (change of) liver, not elsewhere classified; D64.9 Anemia, unspecified; Z98.84 Bariatric surgery status; E66.9 Obesity, unspecified; Z68.41 Body mass index [BMI] 40.0-44.9, adult; Z98.891 History of uterine scar from previous surgery; Z97.2 Presence of dental prosthetic device (complete) (partial); Z90.49 Acquired absence of other specified parts of digestive tract; Z90.710 Acquired absence of both cervix and uterus; Z96.653 Presence of artificial knee joint, bilateral; Z98.890 Other specified postprocedural states; Z98.42 Cataract extraction status, left eye; Z98.41 Cataract extraction status, right eye; Z87.891 Personal history of nicotine dependence; Z80.0 Family history of malignant neoplasm of digestive organs; Z79.890 Hormone replacement therapy; Z79.891 Long term (current) use of opiate analgesic; Z79.899 Other long term (current) drug therapy; Z88.0 Allergy status to penicillin
CPT/HCPCS: 74018; 52332; C2625; C1769; J2250; J2405; J1956; J2001; J3010; J1170; J0330; J2704

== ENCOUNTER 2021-12-17 07:45 | Day surgery (SDC) | payer MEDICARE ==
[2021-12-15 09:42] VITALS: BMI 41.5
--- NOTE | 2021-12-15 20:14 | P.GSHP ---
History of Present Illness H&P Date: 12/15/21 Chief Complaint: Renal colic The patient is a 65-year-old white female with a history of recurrent urolithiasis. She now presents with bilateral flank pain. CT scan has shown a 7 mm left distal ureteral calculus, a left lower pole renal calculus, and right renal calculi including one within the right renal pelvis. She underwent bilateral ureteral stent insertion on 11/26/2021. She now comes for removal of her stents, along with bilateral ureteroscopic removal of her calculi. - Constitutional Constitutional: Denies chills, Denies fever - Gastrointestinal Gastrointestinal: Reports nausea, Denies vomiting - Genitourinary (Female) Genitourinary: Reports flank pain, Reports kidney stones Past Medical History Past Medical History: Asthma, Diabetes Mellitus, Fibromyalgia, GERD/Reflux, Hyperlipidemia, Osteoarthritis (OA), Pneumonia, Rheumatoid Arthritis (RA), Sleep Apnea/CPAP/BIPAP, Thyroid Disorder Additional Past Medical History / Comment(s): kidney stones-iCU for 7 days due to sepsis from blocked kidney stone,, no cpap used(sleeps in recliner), hiatal hernia, constipation, fatty liver, anemia, History of Any Multi-Drug Resistant Organisms: None Reported Past Surgical History: Bariatric Surgery, Breast Surgery, Section, Cholecystectomy, Hysterectomy, Joint Replacement, Orthopedic Surgery, Uterine Ablation Additional Past Surgical History / Comment(s): venice ureteral stents & cystoscopy on 11-26-21, LT WRIST HAS PLATE/SCREWS, venice KNEE REPLACEMENT, HEMORROIDECTOMY, ROEX-N-Y, hemorrhoidectomy, cystoscopy removal of kidney stone, arthroscopy left knee, sx to repair broken femur/plate,-left breast lumpectomy, cystoscopy/rt ureteral stent placement, venice cataracts Past Anesthesia/Blood Transfusion Reactions: Previous Problems w/ Anesthesia Additional Past Anesthesia/Blood Transfusion Reaction / Comment(s): STATES WITH PRIOR KNEE SURGERY HAD ISSUE POST OP R/T SLEEP [facility] WHERE O2 LEVEL WAS LOW-WAS IN ICU 2009.-NO PROBLEMS WITH KIDNEY STONE PROCEDURE ON 11-26-21 Smoking Status: Former smoker - Past Family History Mother Family Medical History: Cancer Additional Family Medical History / Comment(s): UTERINE Medications and Allergies Home Medications Medication Instructions Recorded Confirmed Type Furosemide [Lasix] 40 mg PO DAILY 04/03/14 12/15/21 History Levothyroxine Sodium [Synthroid] 75 mcg PO QAM 04/03/14 12/15/21 History Morphine Sulfate ER [Ms Contin] 30 mg PO BID 04/03/14 12/15/21 History Albuterol Sulfate [Ventolin HFA] 2 puff INHALATION RT-Q6H PRN 07/24/14 12/15/21 History Amitriptyline HCl [Elavil] 75 mg PO BID 06/07/17 12/15/21 History Montelukast [Singulair] 10 mg PO HS 06/07/17 12/15/21 History Cyanocobalamin [Vitamin B-12 1,000 mcg SQ Q30D 06/13/18 12/15/21 History Injection] tiZANidine HCL [Zanaflex] 4 mg PO BID 07/04/18 12/15/21 History Gabapentin [Neurontin] 400 mg PO BID 06/18/20 12/15/21 History Atorvastatin Calcium [Lipitor] 10 mg PO HS 11/25/21 12/15/21 History HYDROcodone/APAP 10-325MG [[place] 1 tab PO BID 11/25/21 12/15/21 History 10-325] Miralax Powder 1 applicate PO DAILY 11/25/21 12/15/21 History Omeprazole(Dose Unknown) 1 tab PO HS 11/25/21 12/15/21 History Semaglutide [Ozempic] 1 mg SQ IVAN 11/25/21 12/15/21 History Venlafaxine HCl [Effexor] 75 mg PO BID 11/25/21 12/15/21 History Ketorolac [Toradol] 10 mg PO Q6HR PRN #15 tab 11/26/21 12/15/21 Rx Tamsulosin [Flomax] 0.4 mg PO DAILY #30 cap 11/26/21 12/15/21 Rx Allergies Allergy/AdvReac Type Severity Reaction Status Date / Time Penicillins Allergy Rash/Hives Verified 12/15/21 09:06 Surgical - Exam - General well developed, well nourished, no distress - Neck no masses, trachea midline - Respiratory normal respiratory effort - Abdomen Abdomen: soft, non tender, no guarding, no rigid, no rebound - Psychiatric oriented to time, oriented to person, oriented to place, speech is normal, memory intact Results - Imaging CT scan - abdomen: report reviewed, image reviewed Assessment and Plan (1) Calculus of ureter Status: Acute Code(s): N20.1 - CALCULUS OF URETER SNOMED Code(s): 66359040 (2) Renal calculus Status: Acute Code(s): N20.0 - CALCULUS OF KIDNEY SNOMED Code(s): 78575723 Plan: Cystoscopy, bilateral ureteral stent removal, bilateral ureteroscopy with Holmium laser lithotripsy and possible stone basketing. The procedure has been reviewed in detail with the patient. She is aware of potential risks, which include anesthesia, bleeding, infection, and ureteral injury. She is also aware of the possible need for a secondary procedure.
[~2021-12-17 07:45] MED LIST changes: +DEXAMETHASONE SOD PHOSPHATE 4 MG/ML 1 ML VIAL IV ONE; +HYDROmorphone 0.5 MG/0.5 ML SYRINGE IVP PRN; +LACTATED RINGERS 1,000 ML IV SCH; +ONDANSETRON 4 MG/2 ML VIAL IVP ONE
[2021-12-17 08:42] LABS: Glucose,Whole Blood 99 mg/dL (75-99)
[2021-12-17] MEDS ORDERED: GLYCOPYRROLATE 0.2 MG/ML 2 ML VIAL ONE (11:10)
[2021-12-17] MEDS ORDERED: PROPOFOL 10 MG/ML 20 ML VIAL IV ONE (11:10)
[2021-12-17] MEDS ORDERED: SUCCINYLCHOLINE CHLORIDE 100 MG/5 ML SYR IV ONE (11:10)
[2021-12-17] MEDS ORDERED: MIDAZOLAM 2 MG/2 ML VIAL ONE (11:10)
[2021-12-17] MEDS ORDERED: fentaNYL (PF) 50 MCG/ML 2 ML AMP ONE (11:10)
[2021-12-17] MEDS ORDERED: ROCURONIUM 10 MG/ML (5 ML VIAL) IV ONE (11:10)
[2021-12-17] MEDS ORDERED: SUGAMMADEX SODIUM 500 MG/5 ML SDV IV ONE (11:10)
[2021-12-17] MEDS ORDERED: NEOSTIGMINE 1 MG/ML 10 ML VIAL ONE (11:10)
[2021-12-17] MEDS ORDERED: LIDOCAINE 1% INJ 10MG/ML (20 ML MDV) ONE (11:10)
[2021-12-17] MEDS ORDERED: IOPAMIDOL-370 50ML BTL IRRIGATION ONE (11:55)
--- NOTE | 2021-12-17 12:25 | XR ---
EXAMINATION TYPE: XR KUB DATE OF EXAM: 12/17/2021 COMPARISON: X-ray dated 11/26/2021 INDICATION: Preoperative TECHNIQUE: Standard 2 views FINDINGS: Interval insertion of bilateral double-J ureteric stent. The lower ends are seen within the urinary b ladder. The upper ends are likely within the renal collecting system bilaterally. The left-sided one is slightly flattened. The previously described bilateral renal calculi are suboptimally visualized by this x-ray. Fecal bernardo ding of the right akanksha-colon. Degenerative changes of the lumbar spine. IMPRESSION: As above
--- NOTE | 2021-12-17 13:42 | FL ---
Fluoroscopy HISTORY: Kidney stones 10 seconds fluoroscopy time supplied to the referring clinician. 2 intraoperative C-arm images docum ent the procedure. See dictated report from urology.
[2021-12-17 13:52] VITALS: TEMP 97.5
[2021-12-17 14:23] VITALS: RESP 20
[2021-12-17 14:58] VITALS: BP 114/70; PULSE 78
--- NOTE | 2021-12-24 08:44 | P.OP ---
Date of Procedure: 12/17/21 Preoperative Diagnosis: Left ureteral calculus, bilateral renal calculi Postoperative Diagnosis: Same Procedure(s) Performed: Cystoscopy, bilateral ureteral stent removal, left ureteroscopy with Holmium laser lithotripsy and stone basketing, right ureteroscopy with Holmium laser lithotripsy. Anesthesia: GETA Surgeon: Shukri Velasco Estimated Blood Loss (ml): 0 IV fluids (ml): 700 Pathology: none sent Condition: stable Disposition: PACU Indications for Procedure: The patient is a 65-year-old white female with a history of recurrent urolithiasis. She now presents with bilateral flank pain. CT scan has shown a 7 mm left distal ureteral calculus, a left lower pole renal calculus, and right renal calculi including one within the right renal pelvis. She underwent bilateral ureteral stent insertion on 11/26/2021. She now comes for removal of her stents, along with bilateral ureteroscopic removal of her calculi. Operative Findings: Left distal ureteral calculus, bilateral lower pole renal calculi, all fragmented completely. Description of Procedure: The patient was taken to the operating room and placed in the dorsolithotomy position, with legs supported in Tate stirrups. The external genitalia was prepped and draped sterilely. The 30 lens was used to introduce the 21-Marshallese Sage cystoscopic sheath through the urethra and into the bladder under direct vision. The bladder was examined in its entirety. No tumors were seen. The distal end of the left ureteral stent was grasped using forceps and removed along with the cystoscope. The cystoscope was removed, and the Sage semirigid ureteroscope was advanced into the bladder. The ureteroscope was advanced under direct vision until the left distal ureteral calculus was identified. The 272 holmium laser probe was passed through the ureteroscope, and lithotripsy was performed. After fragmenting the calculus, all calculus fragments were removed using a 1.9-Marshallese nitinol basket. The ureter was inspected, and there was no evidence of ureteral perforation. All calculus fragments were removed. The semirigid ureteroscope was removed, and the BidRazora flexible ureteroscope was advanced into the bladder. The left ureteral orifice was cannulated, and the ureteroscope was slowly advanced under direct vision, up to the renal pelvis. Each calyx was examined. A 1 cm calculus was identified within a lower pole calyx. The 272 micron Holmium laser probe was passed through the ureteroscope, and lithotripsy was performed initially using a dusting modality. As the calculus began to fragment, the remaining fragments were treated utilizing a popcorning modality. This was done until there were no residual calculus fragments exceeding 1 mm. The ureteroscope was slowly withdrawn under direct vision. No calculus fragments were seen within the left ureter. There was no evidence of ureteral trauma. The right ureteral orifice was cannulated, and the ureteroscope was slowly advanced under direct vision, up to the right renal pelvis. 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 Each calyx was examined. Although the computed tomography scan suggested the presence of 2 right renal calculi, only 1 was identified within a mid to lower pole calyx. This was fragmented in an identical manner to the left renal calculus. The ureteroscope was then slowly withdrawn under direct vision. There was no evidence of ureteral trauma. The patient tolerated the procedure well and was taken to the recovery room in stable condition.
== END 2021-12-17 15:01 | disposition home or self-care (01) ==
LOC: OR 07:45
PROVIDERS: ATTEND Urology
DX: N20.1 Calculus of ureter (principal); N20.0 Calculus of kidney; J45.909 Unspecified asthma, uncomplicated; E11.9 Type 2 diabetes mellitus without complications; M79.7 Fibromyalgia; K21.9 Gastro-esophageal reflux disease without esophagitis; E78.5 Hyperlipidemia, unspecified; M19.90 Unspecified osteoarthritis, unspecified site; M06.9 Rheumatoid arthritis, unspecified; G47.30 Sleep apnea, unspecified; E07.9 Disorder of thyroid, unspecified; K44.9 Diaphragmatic hernia without obstruction or gangrene; K59.00 Constipation, unspecified; K76.0 Fatty (change of) liver, not elsewhere classified; D64.9 Anemia, unspecified; Z87.01 Personal history of pneumonia (recurrent); Z98.84 Bariatric surgery status; Z79.899 Other long term (current) drug therapy; Z79.890 Hormone replacement therapy; Z88.0 Allergy status to penicillin; Z98.890 Other specified postprocedural states; Z98.891 History of uterine scar from previous surgery; Z90.49 Acquired absence of other specified parts of digestive tract; Z90.710 Acquired absence of both cervix and uterus; Z96.653 Presence of artificial knee joint, bilateral; Z98.42 Cataract extraction status, left eye; Z98.41 Cataract extraction status, right eye; Z80.49 Family history of malignant neoplasm of other genital organs
CPT/HCPCS: 74018; 52353; C1769; J2250; J1100; J2710; J2405; J1956; J2001; J3010; J0330; J2704; Q9967

== ENCOUNTER → 2022-02-05 | Outpatient (CLI) | payer MEDICARE ==
--- NOTE | 2022-02-05 09:23 | US ---
EXAMINATION TYPE: US kidneys/renal and bladder DATE OF EXAM: 02/05/2022 COMPARISON: CT November 23, 2021 CLINICAL HISTORY: N20.0 Calculus of kidney Lt Rt N20.1. history of kidney stones. removal 12/17/21 EXAM MEASUREMENTS: Right Kidney: 10.1 x 4.3 x 3.1 cm Left Kidney: 10.9 x 5.6 x 4.5 cm technical limitations due to patient's body habitus and large amount of overlying bowel content Right Kidney: stones seen, largest at lower pole = 1.6cm Left Kidney: stones seen, largest = 0.9cm Bladder: appears wnl Bilateral Jets seen: no Suboptimal study. Hyperechoic foci suspicious for nonobstructing calculi bilaterally. No hydronephros is bilaterally. Bladder poorly distended. IMPRESSION: Suboptimal study. Suspect persistent nonobstructing bilateral renal calculi. No gross hyd ronephrosis seen currently.
--- NOTE | 2022-02-05 09:33 | XR ---
EXAMINATION TYPE: XR KUB DATE OF EXAM: 02/05/2022 9:26 AM CLINICAL HISTORY: History of kidney stones with bilateral stents. TECHNIQUE: Two supine KUB images of the abdomen are obtained. COMPARISON: Abdominal x-ray December 17, 2021. CT abdomen and pelvis November 23, 2021. FINDINGS: Interval removal of bilateral double ureter stents. Colonic fecal material makes evaluation suboptimal for calculi. Probable 3-4 renal calculi remain present bilaterally up to 9 mm in size. Bridging osteophytes in the thoracic spine are present. Cholecystectomy clips are redemonstrated. Kedar gical changes epigastric region again seen. IMPRESSION: As above.
[2022-02-05 14:09] LABS: Basophils # (A) 0.03 X 10*3/uL (0.00-0.10); Basophils % (A) 0.4 %; Eosinophils # (A) 0.13 X 10*3/uL (0.04-0.35); Eosinophils % (A) 1.8 %; HCT 41.1 % (37.2-46.3); HGB 12.2 g/dL (12.0-15.0); Immature Grans, Automated 0.4 %; Lymphocytes # (A) 1.03 X 10*3/uL (0.90-5.00); Lymphocytes % (A) 14.7 %; MCH 28.4 pg (27.0-32.0); MCHC 29.7 g/dL (32.0-37.0); MCV 95.8 fL (80.0-97.0); Mean Platelet Volume 11.8 fL (9.5-12.2); Monocytes # (A) 0.41 X 10*3/uL (0.20-1.00); Monocytes % (A) 5.8 %; NRBC Per 100 WBC 0 /100 WBCS (0.0-0.0); Neutrophils % (A) 76.9 %; Platelet Count 176 X 10*3/uL (140-440); RBC 4.29 X 10*6/uL (4.10-5.20); RDW 14.1 % (11.5-14.5); WBC 7.03 X 10*3/uL (4.50-10.00)
[2022-02-05 14:40] LABS: ALT 21 U/L (8-44); AST 36 U/L (13-35); African American GFR (CKD) 105.4 (60.0-200.0); Albumin 3.7 g/dL (3.8-4.9); Albumin/Globulin Ratio 1.37 (1.60-3.17); Alkaline Phosphatase 174 U/L (41-126); BUN/Creat Ratio 20.57 Ratio (12.00-20.00); Blood Urea Nitrogen 14.4 mg/dL (9.0-27.0); Calcium 8.8 mg/dL (8.7-10.3); Carbon Dioxide 27.2 mmol/L (20.0-27.5); Chloride 96 mmol/L (96-109); Globulin 2.7 g/dL (1.6-3.3); Glucose 97 mg/dL (70-110); LDL Cholesterol,Calculated 45.3 mg/dL (0.0-131.0); Non-African American GFR(CKD) 90.9 (60.0-200.0); Potassium 4.1 mmol/L (3.5-5.5); Sodium 133 mmol/L (135-145); Total Protein 6.4 g/dL (6.2-8.2)
== END | disposition home or self-care (01) ==
LOC: RADUSWWP 08:26
PROVIDERS: ATTEND Urology
DX: E11.9 Type 2 diabetes mellitus without complications (principal); R74.8 Abnormal levels of other serum enzymes; E53.8 Deficiency of other specified B group vitamins; R53.83 Other fatigue; M25.78 Osteophyte, vertebrae; Z90.49 Acquired absence of other specified parts of digestive tract
CPT/HCPCS: 74018; 76770; 80053; 80061; 82533; 82607; 83036; 85025

== ENCOUNTER → 2022-02-12 | Outpatient (CLI) | payer MEDICARE ==
--- NOTE | 2022-02-12 09:35 | XR ---
KUB HISTORY: Calculus of kidney Frontal KUB and 2 images correlated prior exam 02/05/2022 Spondylosis, hypertrophic changes present within the lumbar spine. There are calcifications again not ed within the pelvis as on prior. Overlying bowel gas may obscure detail. Surgical clips present righ t upper quadrant. There is retained fecal debris present within the colon. Suspect postop changes yara r the gastroesophageal junction. Difficult to exclude calcifications within the left kidney. IMPRESSION: Bowel gas limits evaluation.
== END | disposition home or self-care (01) ==
LOC: RADXRMAIN 08:21
PROVIDERS: ATTEND Urology
DX: N20.0 Calculus of kidney (principal)
CPT/HCPCS: 74018

== ENCOUNTER → 2022-02-26 | Outpatient (CLI) | payer MEDICARE ==
--- NOTE | 2022-02-26 10:05 | XR ---
EXAMINATION TYPE: XR KUB DATE OF EXAM: 02/26/2022 COMPARISON: 02/12/2022 INDICATION: Renal calculus TECHNIQUE: Single view abdomen frontal projection FINDINGS: There is a normal bowel gas pattern. Psoas margins are normal. No organomegaly is present. There is a 0.6 cm calcification overlying the mid right kidney. On supine imaging a few additional fa int smaller calcifications may be present adjacent to the colonic bowel gas. IMPRESSION: 1. Appear to be small right renal calculi present. The largest measures 0.6 cm midportion.
== END | disposition home or self-care (01) ==
LOC: RADXRMAIN 09:18
PROVIDERS: ATTEND Urology
DX: N20.0 Calculus of kidney (principal)
CPT/HCPCS: 74018

== ENCOUNTER → 2022-03-23 | Outpatient (CLI) | payer MEDICARE ==
--- NOTE | 2022-03-23 15:57 | XR ---
EXAMINATION TYPE: XR shoulder complete LT DATE OF EXAM: 03/23/2022 CLINICAL HISTORY: Pain from recent fall injury. TECHNIQUE: Three views of the left shoulder are obtained. COMPARISON: None. FINDINGS: Osseous structures are demineralized. There is no acute fracture/dislocation evident in th e left shoulder. Mild narrowing at the acromioclavicular joint. Mild to moderate narrowing of the gl enohumeral joint with mild spurring. The visualized ribs are intact. Visualized left lung is clear. IMPRESSION: There is no acute fracture or dislocation in the left shoulder.
--- NOTE | 2022-03-23 15:59 | XR ---
EXAMINATION TYPE: XR ribs LT w pa chest xray DATE OF EXAM: 03/23/2022 CLINICAL HISTORY: Chest and left-sided rib pain after recent fall injury. TECHNIQUE: Single frontal view of the chest is obtained. A frontal and oblique images of the left-latosha ed ribs. COMPARISON: Prior chest x-ray June 18, 2018 FINDINGS: There is no suspicious focal air space opacity, pleural effusion, or pneumothorax seen. T he cardiac silhouette size remains within normal limits. The osseous structures are intact. Dedicated images of the left-sided ribs show no acute displaced fracture. There are old healed fractu res of the anterolateral left third and fourth ribs. Overlying soft tissue is unremarkable. IMPRESSION: 1. No acute cardiopulmonary process. 2. No acute displaced left-sided rib fractures.
== END | disposition home or self-care (01) ==
LOC: RADXRMAIN 15:25
PROVIDERS: ATTEND Family Medicine
DX: M25.512 Pain in left shoulder (principal); R07.81 Pleurodynia; S49.92XA Unspecified injury of left shoulder and upper arm, initial encounter; S29.9XXA Unspecified injury of thorax, initial encounter; W19.XXXA Unspecified fall, initial encounter

== ENCOUNTER 2022-04-01 05:52 | Day surgery (SDC) | payer MEDICARE ==
[2022-03-30 09:12] VITALS: BMI 40.8
--- NOTE | 2022-03-31 11:55 | P.GSHP ---
History of Present Illness H&P Date: 03/28/22 Chief Complaint: Flank pain The patient is a 66-year-old white female with a history of recurrent urolithiasis. She presented earlier this year with bilateral flank pain. CT scan showed a 7 mm left distal ureteral calculus, a left lower pole renal calculus, and right renal calculi including one within the right renal pelvis. She underwent bilateral ureteral stent insertion on 11/26/2021. She then underwent cystoscopy, bilateral ureteral stent removal, left ureteroscopy with Holmium laser lithotripsy and stone basketing, right ureteroscopy with Holmium laser lithotripsy on 12/17/2021. She currently is experiencing right flank pain, and imaging shows a 6 mm right renal calculus. She thus comes for cystoscopy, right ureteroscopy with Holmium laser lithotripsy and possible stone basketing, right ureteral stent insertion. - Constitutional Constitutional: Denies chills, Denies fever - Genitourinary (Female) Genitourinary: Reports flank pain, Reports kidney stones Past Medical History Past Medical History: Asthma, Diabetes Mellitus, Fibromyalgia, GERD/Reflux, Hyperlipidemia, Osteoarthritis (OA), Pneumonia, Rheumatoid Arthritis (RA), Sleep Apnea/CPAP/BIPAP, Thyroid Disorder Additional Past Medical History / Comment(s): kidney stones-iCU for 7 days due to sepsis from blocked kidney stone,, no cpap used(sleeps in recliner), hiatal hernia, constipation, fatty liver, anemia, History of Any Multi-Drug Resistant Organisms: None Reported Past Surgical History: Bariatric Surgery, Breast Surgery, Section, Cholecystectomy, Hysterectomy, Joint Replacement, Orthopedic Surgery, Uterine Ablation Additional Past Surgical History / Comment(s): venice ureteral stents & cystoscopy on 11-26-21, LT WRIST HAS PLATE/SCREWS, venice KNEE REPLACEMENT, HEMORROIDECTOMY, ROEX-N-Y, hemorrhoidectomy, cystoscopy removal of kidney stone, arthroscopy left knee, sx to repair broken femur/plate,-left breast lumpectomy, cystoscopy/rt ureteral stent placement, venice cataracts Past Anesthesia/Blood Transfusion Reactions: Previous Problems w/ Anesthesia Additional Past Anesthesia/Blood Transfusion Reaction / Comment(s): STATES WITH PRIOR KNEE SURGERY HAD ISSUE POST OP R/T SLEEP APNEA WHERE O2 LEVEL WAS LOW-WAS IN ICU 2009.-NO PROBLEMS WITH KIDNEY STONE PROCEDURE ON 11-26-21 Smoking Status: Former smoker - Past Family History Mother Family Medical History: Cancer Additional Family Medical History / Comment(s): UTERINE Medications and Allergies Home Medications Medication Instructions Recorded Confirmed Type Furosemide [Lasix] 40 mg PO BID 04/03/14 03/30/22 History Levothyroxine Sodium [Synthroid] 75 mcg PO QAM 04/03/14 03/30/22 History Morphine Sulfate ER [Ms Contin] 30 mg PO BID 04/03/14 03/30/22 History Albuterol Sulfate [Ventolin HFA] 2 puff INHALATION RT-Q6H PRN 07/24/14 03/30/22 History Montelukast [Singulair] 10 mg PO HS 06/07/17 03/30/22 History Cyanocobalamin [Vitamin B-12 1,000 mcg SQ Q30D 06/13/18 03/30/22 History Injection] tiZANidine HCL [Zanaflex] 4 mg PO BID 07/04/18 03/30/22 History Gabapentin [Neurontin] 400 mg PO BID 06/18/20 03/30/22 History Atorvastatin Calcium [Lipitor] 10 mg PO HS 11/25/21 03/30/22 History HYDROcodone/APAP 10-325MG [[place] 1 tab PO BID PRN 11/25/21 03/30/22 History 10-325] Miralax Powder 1 dose PO HS 11/25/21 03/30/22 History Omeprazole(Dose Unknown) 1 tab PO HS 11/25/21 03/30/22 History Semaglutide [Ozempic] 1 mg SQ IVAN 11/25/21 03/30/22 History Venlafaxine HCl [Effexor] 75 mg PO BID 11/25/21 03/30/22 History Ketorolac [Toradol] 10 mg PO Q6HR PRN #15 tab 11/26/21 03/30/22 Rx Amitriptyline HCl [Elavil] 50 mg PO BID 03/30/22 03/30/22 History Cholecalciferol [Vitamin D3 (25 25 mcg PO DAILY 03/30/22 03/30/22 History Mcg = 1000 Iu)] Cider Vinegar [Apple Cider Vinegar] 300 mg PO BID 03/30/22 03/30/22 History Morphine Sulfate ER [Ms Contin] 15 mg PO BID 03/30/22 03/30/22 History Multivit with Calcium,Iron,Min 1 each PO DAILY 03/30/22 03/30/22 History [Women's Multivitamin] Theralith 1 tab PO DAILY 03/30/22 03/30/22 History Vitamin E (Unknown Dose) 1 tab PO DAILY 03/30/22 03/30/22 History Allergies Allergy/AdvReac Type Severity Reaction Status Date / Time Penicillins Allergy Rash/Hives Verified 03/30/22 08:53 Surgical - Exam - General well developed, well nourished, no distress - Neck no masses, trachea midline - Respiratory normal respiratory effort - Abdomen Abdomen: soft, non tender, no guarding, no rigid, no rebound - Genitourinary normal external genitalia - Psychiatric oriented to time, oriented to person, oriented to place, speech is normal, memory intact Assessment and Plan (1) Renal calculus Status: Acute Code(s): N20.0 - CALCULUS OF KIDNEY SNOMED Code(s): 36236280 Plan: Cystoscopy, right retrograde pyelogram, right ureteroscopy with Holmium laser lithotripsy and possible stone basketing, right ureteral stent insertion. The patient is aware of the potential risks include anesthesia, bleeding, infection, inability to successfully remove the calculus, and ureteral injury.
[~2022-04-01 05:52] MED LIST changes: -DEXAMETHASONE SOD PHOSPHATE 4 MG/ML 1 ML VIAL IV ONE; -HYDROmorphone 0.5 MG/0.5 ML SYRINGE IVP PRN; -LACTATED RINGERS 1,000 ML IV SCH; -ONDANSETRON 4 MG/2 ML VIAL IVP ONE
[2022-04-01 07:10] VITALS: TEMP 97.1
[2022-04-01] MEDS ORDERED: ONDANSETRON 4 MG/2 ML VIAL IVP ONE (07:20)
[2022-04-01] MEDS ORDERED: DEXAMETHASONE SOD PHOSPHATE 4 MG/ML 1 ML VIAL IV ONE (07:20)
[2022-04-01] MEDS ORDERED: LACTATED RINGERS 1,000 ML IV SCH (07:20)
[2022-04-01 07:28] LABS: Glucose,Whole Blood 114 mg/dL (75-99)
[2022-04-01 07:58] LABS: Albumin 3.7 g/dL (3.5-5.0); Calcium 8.9 mg/dL (8.4-10.2); Potassium 4.2 mmol/L (3.5-5.1); Total Bilirubin 0.4 mg/dL (0.2-1.3); Total Protein 6.3 g/dL (6.3-8.2)
--- NOTE | 2022-04-01 09:05 | XR ---
EXAMINATION TYPE: XR KUB DATE OF EXAM: 04/01/2022 COMPARISON: X-ray dated 02/26/2022 INDICATION: Right renal calculus TECHNIQUE: AP view of the abdomen and pelvis. FINDINGS: The renal shadows are markedly obscured by the overlying bowel gas and fecal material. Questionable r ight renal calculi measuring up to 6 mm. Tiny right pelvic phlebolith versus a tiny stone measuring 2 mm. Cholecystectomy clips. Severe degene rative changes of the visualized portion of the spine. IMPRESSION: As above.
[2022-04-01] MEDS ORDERED: KETOROLAC 15 MG/ML 1 ML VIAL ONE (09:21)
[2022-04-01] MEDS ORDERED: fentaNYL (PF) 50 MCG/ML 2 ML AMP ONE (09:21)
[2022-04-01] MEDS ORDERED: LIDOCAINE 2% INJ 20 MG/ML (2 ML VIAL) ONE (09:21)
[2022-04-01] MEDS ORDERED: MIDAZOLAM 2 MG/2 ML VIAL ONE (09:21)
[2022-04-01] MEDS ORDERED: SUCCINYLCHOLINE CHLORIDE 100 MG/5 ML SYR IV ONE (09:21)
[2022-04-01] MEDS ORDERED: FUROSEMIDE 10 MG/ML 2 ML VIAL ONE (09:21)
[2022-04-01] MEDS ORDERED: PROPOFOL 10 MG/ML 20 ML VIAL IV ONE (09:21)
[2022-04-01] MEDS ORDERED: LACTATED RINGERS 1,000 ML IV ONE (10:18)
[2022-04-01 11:10] LABS: Glucose,Whole Blood 116 mg/dL (75-99)
[2022-04-01] MEDS: HYDROmorphone 0.5 MG/0.5 ML SYRINGE IVP PRN ×2 (11:13→11:43)
[2022-04-01 12:15] VITALS: RESP 16
[2022-04-01 12:29] VITALS: BP 133/89; PULSE 75
--- NOTE | 2022-04-02 06:56 | P.OP ---
Date of Procedure: 04/01/22 Preoperative Diagnosis: Right renal calculi Postoperative Diagnosis: Same Procedure(s) Performed: Cystoscopy, right ureteroscopy with Holmium laser lithotripsy, right ureteral stent insertion Anesthesia: MILDREDA Surgeon: Shukri Velasco Estimated Blood Loss (ml): 10 IV fluids (ml): 900 Pathology: none sent Condition: stable Disposition: PACU Indications for Procedure: The patient is a 66-year-old white female with a history of recurrent urolithiasis. She presented earlier this year with bilateral flank pain. CT scan showed a 7 mm left distal ureteral calculus, a left lower pole renal calculus, and right renal calculi including one within the right renal pelvis. She underwent bilateral ureteral stent insertion on 11/26/2021. She then underwent cystoscopy, bilateral ureteral stent removal, left ureteroscopy with Holmium laser lithotripsy and stone basketing, right ureteroscopy with Holmium laser lithotripsy on 12/17/2021. She currently is experiencing right flank pain, and imaging shows a 6 mm right renal calculus. She thus comes for cystosc opy, right ureteroscopy with Holmium laser lithotripsy and possible stone basketing, right ureteral stent insertion. Operative Findings: Multiple tiny, round calculi within a right mid pole calyx. Description of Procedure: The patient was taken to the operating room and placed in the dorsolithotomy position, with legs supported in Tate stirrups. The external genitalia was prepped and draped sterilely. The 30 lens was used to introduce the 21-Argentine Sage cystoscopic sheath through the urethra and into the bladder under direct vision. The bladder was examined in its entirety. Both ureteral orifices were normal anatomic location and configuration, and clear urine effluxed from both. No tumors or foreign bodies were seen. A 0.038 inch Glidewire was passed through the cystoscope. The right ureteral orifice was cannulated, and the Glidewire was advanced up to the renal pelvis. The cystoscope was removed, and an 11/13-Argentine ureteral access catheter was passed over the wire, up to the proximal ureter. The Sage Smart Device Mediara flexible ureteroscope was then passed through the ureteral access catheter sheath, up to the renal pelvis. Each calyx was examined. Within 2 upper pole calyces were 2 small calculi, one adherent to the mucosa and the other submucosal. The 272 micron Holmium laser probe was passed through the ureteroscope, and lithotripsy was performed to remove both of these. Within a mid pole calyx, multiple (>50) tiny calculi were seen. Lithotripsy was performed using a popcorning mode. Next, with the beak of the ureteroscope within that calyx, irrigation was performed to flush all of the calculi out of that calyx and into the renal pelvis. Next, the ureteroscope was removed and the ureteral access catheter was advanced over the wire, into the renal pelvis. The renal pelvis was irrigated but it was not possible to remove the calculi. The Glidewire was replaced and backloaded into the cystoscope. A 24 cm, 4.8- [place] double-J ureteral stent was placed over the wire. Proper stent positioning was verified fluoroscopically and endoscopically. The bladder was emptied and the cystoscope removed. The patient tolerated the procedure well and was taken to the recovery room in stable condition. LISANDRA ROCKRocio Report: Procedure Acuity: Elective Stone Size and Location: Multiple calculi less than 2 mm, right mid pole calyx Ureteral Dilation: No Ureteral Access Sheath Used: Yes Stone Sent for Analysis: No All Stones/Fragments Were Removed with a Basket: No Complications: No Preoperative Antibiotics Given: Yes Stent Placed: Yes If Stent Placed, Was String Left Attached: No If Stent Placed, When is it to be Removed: 1 week Discharge Medications: Toradol
--- NOTE | 2022-04-02 17:04 | FL ---
EXAMINATION TYPE: FL guidance operating room DATE OF EXAM: 04/01/2022 FLUOROSCOPY Fluoroscopy time of 20 seconds was used during urologic intervention for renal stone. One image docum ents the procedure.
== END 2022-04-01 13:10 | disposition home or self-care (01) ==
LOC: OR 05:52
PROVIDERS: ATTEND Urology
DX: N20.0 Calculus of kidney (principal); G47.33 Obstructive sleep apnea (adult) (pediatric); J45.909 Unspecified asthma, uncomplicated; E07.9 Disorder of thyroid, unspecified; M06.9 Rheumatoid arthritis, unspecified; K21.9 Gastro-esophageal reflux disease without esophagitis; E11.9 Type 2 diabetes mellitus without complications; M79.7 Fibromyalgia; E78.5 Hyperlipidemia, unspecified; M19.90 Unspecified osteoarthritis, unspecified site; K44.9 Diaphragmatic hernia without obstruction or gangrene; K59.00 Constipation, unspecified; K76.0 Fatty (change of) liver, not elsewhere classified; D64.9 Anemia, unspecified; Z88.0 Allergy status to penicillin; Z79.899 Other long term (current) drug therapy; Z79.890 Hormone replacement therapy; Z87.01 Personal history of pneumonia (recurrent); Z98.84 Bariatric surgery status; Z98.890 Other specified postprocedural states; Z98.891 History of uterine scar from previous surgery; Z90.49 Acquired absence of other specified parts of digestive tract; Z90.710 Acquired absence of both cervix and uterus; Z96.653 Presence of artificial knee joint, bilateral; Z98.42 Cataract extraction status, left eye; Z98.41 Cataract extraction status, right eye; Z97.2 Presence of dental prosthetic device (complete) (partial); Z80.49 Family history of malignant neoplasm of other genital organs
CPT/HCPCS: 80053; 74018; 52356; C2625; C1769; J2250; J1100; J1940; J2405; J1956; J3010; J1885; J0330; J2704; J1170; J2001

== ENCOUNTER → 2022-04-23 | Outpatient (CLI) | payer MEDICARE ==
[2022-04-23 19:42] LABS: Anion Gap 10.6 mmol/L (10.00-18.00); Carbon Dioxide 32.4 mmol/L (20.0-27.5); Potassium 4.6 mmol/L (3.5-5.5)
== END | disposition home or self-care (01) ==
LOC: LABWHC1 10:37
PROVIDERS: ATTEND Urology
DX: R82.991 Hypocitraturia (principal)
CPT/HCPCS: 36415; 80051

== ENCOUNTER → 2022-10-08 | Outpatient (CLI) | payer MEDICARE ==
--- NOTE | 2022-10-11 08:35 | MM ---
Reason for Exam: Screening (asymptomatic). Last screening mammogram was performed 12 month(s) ago. Patient History: Menarche at age 14. First Full-Term at age 23. Left ovary removed at age 48. Right ovary removed at age 48. Hysterectomy at age 48. Postmenopausal. Patient used Estrogen for 2 years. 1991, Benign Core Biopsy on the left side. Mother had ovarian cancer. Risk Values: [place] 5 year model risk: 1.8%. NCI Lifetime model risk: 6.6%. Prior Study Comparison: 08/07/2019 Bilateral Screening Mammogram, [facility]. 10/06/2020 Bilateral Screening Mammogram, [facility]. 10/07/2021 Bilateral Screening Mammogram, [facility]. Tissue Density: There are scattered fibroglandular densities. Findings: Analyzed By CAD. Stable circumscribed round 4 mm mass in the posterior upper outer right breast. Similar stable 3 to 4 mm round mass middle to posterior depth inferior right breast from prior mammograms. There is no suspicious new group of microcalcifications or new suspicious mass in either breast. Overall Assessment: Benign, BI-RAD 2 Management: Screening Mammogram of both breasts in 1 year. A clinical breast exam by your physician is recommended on an annual basis and results should be correlated with mammographic findings. Electronically signed and approved by: Maxx Maldonado M.D.
== END | disposition home or self-care (01) ==
LOC: RADMAMWWP 08:49
PROVIDERS: ATTEND Family Medicine
DX: Z12.31 Encounter for screening mammogram for malignant neoplasm of breast (principal); Z78.0 Asymptomatic menopausal state; Z80.41 Family history of malignant neoplasm of ovary; Z90.721 Acquired absence of ovaries, unilateral
CPT/HCPCS: 77063; 77067

== ENCOUNTER 2023-01-06 22:34 | Emergency (ER) | payer MEDICARE ==
[2023-01-06 22:43] VITALS: TEMP 98.4
--- NOTE | 2023-01-06 22:44 | ED ---
General Adult HPI - General Chief complaint: Recheck/Abnormal Lab/Rx Stated complaint: Tachycardia Time Seen by Provider: 01/06/23 22:35 Source: patient Mode of arrival: EMS Limitations: no limitations - History of Present Illness Initial comments: Dictation was produced using [employer] dictation software. please excuse any grammatical, word or spelling errors. Chief Complaint: 67-year-old female presents emergency Department with cannabis toxicity History of Present Illness: 67-year-old female she smoked half a joint of marijuana that she recently obtained from a local dispensary. Patient states she does not smoke marijuana often. It was a month ago. Patient states she smoked Joint well the sudden she started to feel high. Patient has no medical complaints. She called EMS and was brought to the emergency department. The ROS documented in this emergency department record has been reviewed and confirmed by me. Those systems with pertinent positive or negative responses have been documented in the HPI. All other systems are other negative and/or noncontributory. PHYSICAL EXAM: General Impression: Alert and oriented x3, not in acute distress, marijuana toxic HEENT: Normocephalic atraumatic, extra-ocular movements intact, pupils equal and reactive to light bilaterally, mucous membranes moist, conjunctivitis Cardiovascular: Heart regular rate and rhythm Chest: Able to complete full sentences, no retractions, no tachypnea Abdomen: abdomen soft, non-tender, non-distended, no organomegaly Musculoskeletal: Pulses present and equal in all extremities, no peripheral edema Motor: no focal deficits noted Neurological: CN II-XII grossly intact, no focal motor or sensory deficits noted Skin: Intact with no visualized rashes Psych: Normal affect and mood ED course: 67-year-old female presents to the emergency department for cannabis toxicity. Vital signs upon arrival shows mild tachycardia. Rest vital signs within acceptable limits. Nursing notes and chart review was performed Patient observed in emergency department for about 45 minutes. is not the bedside. Patient reevaluated at 12:20 AM out to be in stable medical condition. Patient feels much better. She denies any complaints at this time. Patient discharged under the care of her . Return precautions discussed. Was pt. sent in by a medical professional or institution (, PA, PORTABLE POWER TOOL REPAIRER, urgent care, hospital, or correction...) When possible be specific @ -No Did you speak to anyone other than the patient for history (EMS, parent, family, police, friend...)? What history was obtained from this source @ -EMS Did you review nursing and triage notes (agree or disagree)? Why? @ -I reviewed and agree with nursing and triage notes Were old charts reviewed (outside hosp., previous admission, EMS record, old EKG, old radiological studies, urgent care reports/EKG's, correction records)? Report findings @ -No old charts were reviewed Differential Diagnosis (chest pain, altered mental status, abdominal pain women, abdominal pain men, vaginal bleeding, musculoskeletal, weakness, fever, dyspnea, syncope, headache, dizziness, GI bleed, back pain, seizure, CVA, palpatations, mental health)? @ -And differential altered mental status EKG interpreted by me (3pts min.). @ -None done X-rays interpreted by me (1pt min.). @ -None done CT interpreted by me (1pt min.). @ -None done U/S interpreted by me (1pt. min.). @ -None done What testing was considered but not performed or refused? (CT, X-rays, U/S, labs)? Why? @ -none What meds were considered but not given or refused? Why? @ -none Did you discuss the management of the patient with other professionals (professionals i.e. , PA, PORTABLE POWER TOOL REPAIRER, lab, RT, psych nurse, social media executive, education coordinator, teacher, global chief experience officer, bilingual case manager)? Give summary @ -none Was smoking cessation discussed for >3mins.? @ -No Was critical care preformed (if so, how long)? @ -No Were there social determinants of health that impacted care today? How? (Homelessness, low income, unemployed, alcoholism, drug addiction, transportation, low edu. Level, literacy, decrease access to med. care, [facility], rehab)? @ -No Was there de-escalation of care discussed even if they declined (Discuss DNR or withdrawal of care, Hospice)? DNR status @ -No What co-morbidities impacted this encounter? (DM, HTN, Smoking, COPD, CAD, Cancer, CVA, ARF, Chemo, Hep., AIDS, mental health diagnosis, sleep apnea, morbid obesity)? @ -None Was patient admitted / discharged? Hospital course, mention meds given and route, prescriptions, significant lab abnormalities, going to OR and other pertinent info. @ -See above Undiagnosed new problem with uncertain prognosis? @ -No Drug Therapy requiring intensive monitoring for toxicity (Heparin, Nitro, Insulin, Cardizem)? @ -No Were any procedures done? @ -No Diagnosis/symptom? Acute, or Chronic, or Acute on Chronic? Uncomplicated (without systemic symptoms) or Complicated (systemic symptoms)? @ -1. Cannabis toxicity Side effects of treatment? @ -No Exacerbation, Progression, or Severe Exacerbation? @ -No Poses a threat to life or bodily function? How? (Chest pain, [place], IA, pneumonia, PE, COPD, DKA, ARF, appy, cholecystitis, CVA, Diverticulitis, Homicidal, Suicidal, threat to staff... and all critical care pts) @ -No - Related Data Home Medications Medication Instructions Recorded Confirmed Furosemide [Lasix] 40 mg PO BID 04/03/14 04/01/22 Levothyroxine Sodium [Synthroid] 75 mcg PO QAM 04/03/14 04/01/22 Morphine Sulfate ER [Ms Contin] 30 mg PO BID 04/03/14 04/01/22 Montelukast [Singulair] 10 mg PO HS 06/07/17 04/01/22 Cyanocobalamin [Vitamin B-12 1,000 mcg SQ Q30D 06/13/18 04/01/22 Injection] tiZANidine HCL [Zanaflex] 4 mg PO BID 07/04/18 04/01/22 Gabapentin [Neurontin] 400 mg PO BID 06/18/20 04/01/22 Atorvastatin Calcium [Lipitor] 10 mg PO HS 11/25/21 04/01/22 HYDROcodone/APAP 10-325MG [[place] 1 tab PO BID PRN 11/25/21 04/01/22 10-325] Miralax Powder 1 dose PO HS 11/25/21 04/01/22 Omeprazole(Dose Unknown) 1 tab PO HS 11/25/21 04/01/22 Semaglutide [Ozempic] 1 mg SQ IVAN 11/25/21 04/01/22 Venlafaxine HCl [Effexor] 75 mg PO BID 11/25/21 04/01/22 Amitriptyline HCl [Elavil] 50 mg PO BID 03/30/22 04/01/22 Cholecalciferol [Vitamin D3 (25 25 mcg PO DAILY 03/30/22 04/01/22 Mcg = 1000 Iu)] Cider Vinegar [Apple Cider Vinegar] 300 mg PO BID 03/30/22 04/01/22 Morphine Sulfate ER [Ms Contin] 15 mg PO BID 03/30/22 04/01/22 Multivit with Calcium,Iron,Min 1 each PO DAILY 03/30/22 04/01/22 [Women's Multivitamin] Theralith 1 tab PO DAILY 03/30/22 04/01/22 Vitamin E (Unknown Dose) 1 tab PO DAILY 03/30/22 04/01/22 Previous Rx's Medication Instructions Recorded Ketorolac [Toradol] 10 mg PO Q6HR PRN #15 tab 11/26/21 Allergies Allergy/AdvReac Type Severity Reaction Status Date / Time Penicillins Allergy Rash/Hives Verified 04/01/22 06:54 Review of Systems ROS Statement: Those systems with pertinent positive or pertinent negative responses have been documented in the HPI. ROS Other: All systems not noted in ROS Statement are negative. Past Medical History Past Medical History: Asthma, Diabetes Mellitus, Fibromyalgia, GERD/Reflux, Hyperlipidemia, Osteoarthritis (OA), Pneumonia, Rheumatoid Arthritis (RA), Sleep Apnea/CPAP/BIPAP, Thyroid Disorder Additional Past Medical History / Comment(s): kidney stones-iCU for 7 days due to sepsis from blocked kidney stone,, no cpap used(sleeps in recliner), hiatal hernia, constipation, fatty liver, anemia, History of Any Multi-Drug Resistant Organisms: None Reported Past Surgical History: Bariatric Surgery, Breast Surgery, Section, Cholecystectomy, Hysterectomy, Joint Replacement, Orthopedic Surgery, Uterine Ablation Additional Past Surgical History / Comment(s): venice ureteral stents & cystoscopy on 11-26-21, LT WRIST HAS PLATE/SCREWS, venice KNEE REPLACEMENT, HEMORROIDECTOMY, ROEX-N-Y, hemorrhoidectomy, cystoscopy removal of kidney stone, arthroscopy left knee, sx to repair broken femur/plate,-left breast lumpectomy, cystoscopy/rt ureteral stent placement, venice cataracts Past Anesthesia/Blood Transfusion Reactions: Previous Problems w/ Anesthesia Additional Past Anesthesia/Blood Transfusion Reaction / Comment(s): STATES WITH PRIOR KNEE SURGERY HAD ISSUE POST OP R/T SLEEP APNEA WHERE O2 LEVEL WAS LOW-WAS IN ICU 2009.-NO PROBLEMS WITH KIDNEY STONE PROCEDURE ON 11-26-21 Past Psychological History: Depression Smoking Status: Former smoker - Past Family History Mother Family Medical History: Cancer Additional Family Medical History / Comment(s): UTERINE General Exam Limitations: no limitations Course Vital Signs 01/06/23 22:39 Temperature 98.4 F Pulse Rate 93 Respiratory 22 Rate Blood Pressure 136/97 O2 Sat by Pulse 95 Oximetry Disposition Clinical Impression: Marijuana intoxication Disposition: HOME SELF-CARE Condition: Good Instructions (If sedation given, give patient instructions): Cannabis Abuse (ED) Is patient prescribed a controlled substance at d/c from ED?: No Referrals: Katelyn Rai MD [Primary Care Provider] - 1-2 days Time of Disposition: 00:20
[2023-01-07 00:27] VITALS: BP 134/87; PULSE 85; RESP 18
== END 2023-01-07 00:46 | disposition home or self-care (01) ==
LOC: EC 22:34
DX: F12.929 Cannabis use, unspecified with intoxication, unspecified (principal); J45.909 Unspecified asthma, uncomplicated; E11.9 Type 2 diabetes mellitus without complications; K21.9 Gastro-esophageal reflux disease without esophagitis; E78.5 Hyperlipidemia, unspecified; M19.90 Unspecified osteoarthritis, unspecified site; G47.30 Sleep apnea, unspecified; E07.9 Disorder of thyroid, unspecified; F32.A Depression, unspecified; Z87.891 Personal history of nicotine dependence; Z79.890 Hormone replacement therapy; Z79.1 Long term (current) use of non-steroidal anti-inflammatories (NSAID); Z79.84 Long term (current) use of oral hypoglycemic drugs; Z79.899 Other long term (current) drug therapy; Z88.0 Allergy status to penicillin
CPT/HCPCS: 99285

== ENCOUNTER → 2023-02-04 | Outpatient (CLI) | payer MEDICARE ==
--- NOTE | 2023-02-04 12:32 | XR ---
EXAMINATION TYPE: XR KUB DATE OF EXAM: 02/04/2023 COMPARISON: KUB 04/01/2022 INDICATION: N20.0 TECHNIQUE: Supine KUB view was performed with 2 radiographs. FINDINGS: Stable 8 mm calcification overlying the mid right kidney. 5 mm calcification overlies the expected lo cation of the left kidney superior pole with questionable 7 mm calcification overlying the midportion the left kidney. Stable tiny right pelvic phlebolith versus a tiny stone measuring 2 mm. Cholecystectomy clips. Severe degenerative changes of the visualized portion of the spine. IMPRESSION: As above.
== END | disposition home or self-care (01) ==
LOC: RADXRMAIN 11:57
PROVIDERS: ATTEND Urology
DX: N20.0 Calculus of kidney (principal)
CPT/HCPCS: 74018

== ENCOUNTER → 2023-05-02 | Outpatient (CLI) | payer MEDICARE ==
--- NOTE | 2023-05-02 11:55 | XR ---
EXAMINATION TYPE: XR KUB DATE OF EXAM: 05/02/2023 11:42 AM INDICATION: Patient age:Female; 67 years old; Reason for study: N20.0 calculus of kidney; COMPARISON: 02/04/2023 TECHNIQUE: One radiographic view of the abdomen was obtained. FINDINGS: Similar left renal calculi project over the kidney. The right renal calculus seen on prior is not visualized due to overlapping bowel. The bowel gas pattern is nonspecific without dilated loop s of small or large bowel. There is no evidence for organomegaly or pneumoperitoneum. The osseous st ructures are intact. Large amount stool and gas seen within the mid abdomen bowel. Right abdominal monahan rgical clips and suture seen in the upper middle abdomen. Multilevel degeneration changes throughout the spine with osteophyte formation and facet joint arthropathy and disc space narrowing. Bilateral h ip mild osteoarthrosis. Fecal material and gas are demonstrated throughout the colon and rectum. IMPRESSION: Similar bilateral calcifications project over the left kidney the right renal calculus is not visuali zed due to stool..
== END | disposition home or self-care (01) ==
LOC: RADXRMAIN 11:14
PROVIDERS: ATTEND Urology
DX: N20.0 Calculus of kidney (principal)
CPT/HCPCS: 74018

== ENCOUNTER → 2023-05-11 | Outpatient (CLI) | payer MEDICARE ==
--- NOTE | 2023-05-11 09:56 | CT ---
EXAMINATION TYPE: CT abdomen pelvis wo con DATE OF EXAM: 05/11/2023 COMPARISON: 11/23/2021 HISTORY: 67-year-old female N20.0, Hx renal stones CT DLP: 1294.30 mGycm. Automated exposure control for dose reduction was used. TECHNIQUE: Contiguous axial scanning of the abdomen and pelvis without IV contrast. Coronal and sagit toyin reconstructions performed. FINDINGS: LUNG BASES: Lung bases show some mosaic attenuation. Suggestion of some subtle groundglass nodularity as well. No pleural effusion. Findings may represent respiratory bronchiolitis or small airways dise ase. LIVER/GB: Liver enlarged at 19.8 cm with marked diminished attenuation. Gallbladder surgically absent . PANCREAS: Atrophic pancreas otherwise shows no gross abnormality. SPLEEN: No significant abnormality is seen. ADRENALS: No significant abnormality is seen. KIDNEYS: On the right, there are 4 nonobstructive calculi measuring up to 7 mm. A nonobstructive left renal calculi measuring up to 9 mm. No hydronephrosis on either side. BOWEL: There is some fluid within the mid to lower esophagus with a small hiatal hernia and postsurgi bernard change of Azul-en-Y gastric bypass. No dilated small bowel, free fluid, or free air. There is mod erate stool burden. No pericolonic inflammatory change. Mildly redundant sigmoid colon. LYMPH NODES: No significant abnormality is seen. OTHER: Small to moderate-sized fatty umbilical hernia measuring up to 4.7 cm wide. PELVIS: Bladder nondistended. Punctate pelvic phlebolith. Uterus surgically absent. Neither ovary vicki micaela seen. BONES: Dictation within the visualized thoracic spine. Accentuated upper lumbar kyphosis and lower luis mbar lordosis. Moderate degenerative disc disease L3-L4. Degenerative grade 1 retrolisthesis L2-L3 an d L3-L4. IMPRESSION: 1. Bilateral nonobstructive renal calculi measuring up to 7 mm on the right and 9 mm on the left. No hydronephrosis. 2. Hepatomegaly at 19.8 cm with moderate to severe hepatic steatosis. Correlate with LFTs, lipid pro file, and patient risk factors. 3. Post surgical change of Azul-en-Y gastric bypass. There is a small hiatal hernia. Some fluid in t he visualized esophagus could reflect esophageal dysmotility or gastroesophageal reflux disease. 4. Mzhlj-xi-klzaomdr-sized fatty umbilical hernia. 5. Some nonspecific mild groundglass and subtle nodularity in the lower lungs may reflect respirator y bronchiolitis or small airways disease.
== END | disposition home or self-care (01) ==
LOC: RADCTMAIN 07:43
PROVIDERS: ATTEND Urology
DX: N20.0 Calculus of kidney (principal); K76.0 Fatty (change of) liver, not elsewhere classified; K44.9 Diaphragmatic hernia without obstruction or gangrene; K42.9 Umbilical hernia without obstruction or gangrene; R91.8 Other nonspecific abnormal finding of lung field; Z98.84 Bariatric surgery status
CPT/HCPCS: 74176

== ENCOUNTER → 2023-05-24 | Outpatient (CLI) | payer MEDICARE ==
[2023-05-24 21:55] LABS: Basophils # (A) 0.03 X 10*3/uL (0.00-0.10); Basophils % (A) 0.4 %; Eosinophils # (A) 0.13 X 10*3/uL (0.04-0.35); Eosinophils % (A) 1.9 %; HCT 42.1 % (37.2-46.3); HGB 12.8 d/dL (12.0-15.0); Lymphocytes # (A) 1.45 X 10*3/uL (0.90-5.00); Lymphocytes % (A) 20.7 %; MCH 28.9 pg (27.0-32.0); MCHC 30.4 d/dL (32.0-37.0); Mean Platelet Volume 12.4 FL (9.5-12.2); Monocytes # (A) 0.35 X 10*3/uL (0.20-1.00); NRBC Per 100 WBC 0 X 10*3/uL (0.00-0.01); Neutrophils # (A) 5.01 X 10*3/uL (1.80-7.70); Neutrophils % (A) 71.4 %; Platelet Count 200 X 10*3/uL (140-440); RBC 4.43 X 10*6/uL (4.10-5.20); RDW 14.7 % (11.5-14.5); WBC 7.01 X 10*3/uL (4.50-10.00)
[2023-05-24 22:03] LABS: ALT 54 U/L (8-44); AST 75 U/L (13-35); Albumin 3.8 d/dL (3.8-4.9); Albumin/Globulin Ratio 1.73 Ratio (1.60-3.17); Alkaline Phosphatase 175 U/L (41-126); BUN/Creat Ratio 14.62 Ratio (12.00-20.00); Blood Urea Nitrogen 11.7 mg/dL (9.0-27.0); Calcium 9.3 mg/dL (8.7-10.3); Carbon Dioxide 31.7 mmol/L (21.6-31.8); Chloride 100 mmol/L (96-109); Globulin 2.2 d/dL (1.6-3.3); Glucose 76 mg/dL (70-110); Potassium 4.5 mmol/L (3.5-5.5); Sodium 140 mmol/L (135-145); Total Bilirubin 0.4 mg/dL (0.3-1.2)
== END | disposition home or self-care (01) ==
LOC: LABPAT 13:38
PROVIDERS: ATTEND Urology
DX: Z01.812 Encounter for preprocedural laboratory examination (principal); N20.0 Calculus of kidney
CPT/HCPCS: 80053; 85025

== ENCOUNTER → 2023-05-27 | Outpatient (CLI) | payer MEDICARE ==
--- NOTE | 2023-05-28 21:27 | XR ---
EXAMINATION TYPE: XR Hip Complete LT DATE OF EXAM: 05/27/2023 COMPARISON: NONE HISTORY: 67-year-old female M25.552 TECHNIQUE: 2 views FINDINGS: Mild degenerative change of the left hip. Lateral plate and screw fixation partially visualized mid left femoral shaft. Osteopenia. No displace d fracture seen. IMPRESSION: Mild left hip OA. There is osteopenia. No displaced fracture seen. Partially visualized lateral plate and screw fixation mid left femoral shaft.
== END | disposition home or self-care (01) ==
LOC: RADXRMAIN 11:19
PROVIDERS: ATTEND Family Medicine
DX: M16.12 Unilateral primary osteoarthritis, left hip (principal); M85.851 Other specified disorders of bone density and structure, right thigh
CPT/HCPCS: 73502

== ENCOUNTER → 2023-06-02 | Day surgery (SDC) | payer MEDICARE ==
[2023-05-26 09:44] VITALS: BMI 43.2
--- NOTE | 2023-05-29 19:21 | P.GSHP ---
History of Present Illness H&P Date: 05/29/23 Chief Complaint: Flank pain The patient is a 67-year-old white female with a history of recurrent urolithiasis. She was found in early 2021 to have a 7 mm left distal ureteral calculus, a left lower pole renal calculus, and right renal calculi including one within the right renal pelvis. She underwent bilateral ureteral stent insertion on 11/26/2021. She then underwent ureteroscopic removal of calculi on 12/17/2021 and again on 04/01/2022. At the time of the latter procedure, she was found to have multiple tiny, round calculi within a right mid pole calyx. She now presents with right flank and left groin pain. She has a history of hyperoxaluria and hypocitraturia, for which she takes potassiums citrate and hydrochlorothiazide. Recent CT scan shows bilateral renal calculi. - Constitutional Constitutional: Denies chills, Denies fever - Genitourinary (Female) Genitourinary: Reports flank pain, Reports kidney stones, Denies dysuria, Denies hematuria Past Medical History Past Medical History: Asthma, Diabetes Mellitus, Fibromyalgia, GERD/Reflux, Hyperlipidemia, Osteoarthritis (OA), Pneumonia, Rheumatoid Arthritis (RA), Sleep Apnea/CPAP/BIPAP, Thyroid Disorder Additional Past Medical History / Comment(s): kidney stones-iCU for 7 days due to sepsis from blocked kidney stone,, no cpap used(sleeps in recliner), hiatal hernia, constipation, fatty liver, anemia, History of Any Multi-Drug Resistant Organisms: None Reported Past Surgical History: Bariatric Surgery, Breast Surgery, Section, Cholecystectomy, Hysterectomy, Joint Replacement, Orthopedic Surgery, Uterine Ablation Additional Past Surgical History / Comment(s): venice ureteral stents & cystoscopy, LT WRIST HAS PLATE/SCREWS, venice KNEE REPLACEMENT, hemorrhoidectomy, arthroscopy left knee, sx to repair broken femur/plate, left breast lumpectomy, venice cataracts Past Anesthesia/Blood Transfusion Reactions: Previous Problems w/ Anesthesia Additional Past Anesthesia/Blood Transfusion Reaction / Comment(s): STATES WITH PRIOR KNEE SURGERY HAD ISSUE POST OP R/T SLEEP APNEA WHERE O2 LEVEL WAS LOW-WAS IN ICU 2009.-NO PROBLEMS WITH KIDNEY STONE PROCEDURE ON 11-26-21 Past Psychological History: Depression Additional Psychological History / Comment(s): . Smoking Status: Former smoker Past Alcohol Use History: None Reported Additional Past Alcohol Use History / Comment(s): quit smoking 1980, smoked for 18 yrs, 1 PPD Past Drug Use History: None Reported - Past Family History Mother Family Medical History: Cancer Additional Family Medical History / Comment(s): UTERINE Medications and Allergies Home Medications Medication Instructions Recorded Confirmed Type Levothyroxine Sodium [Synthroid] 75 mcg PO QAM 04/03/14 05/26/23 History Morphine Sulfate ER [Ms Contin] 30 mg PO BID 04/03/14 05/26/23 History Montelukast [Singulair] 10 mg PO HS 06/07/17 05/26/23 History Cyanocobalamin [Vitamin B-12 1,000 mcg SQ Q30D 06/13/18 05/26/23 History Injection] tiZANidine HCL [Zanaflex] 4 mg PO BID PRN 07/04/18 05/26/23 History Atorvastatin Calcium [Lipitor] 10 mg PO HS 11/25/21 05/26/23 History Semaglutide [Ozempic] 1 mg SQ IVAN 11/25/21 05/26/23 History Venlafaxine HCl [Effexor] 75 mg PO DAILY 11/25/21 05/26/23 History Amitriptyline HCl [Elavil] 50 mg PO BID 03/30/22 05/26/23 History Cholecalciferol [Vitamin D3 (25 25 mcg PO DAILY 03/30/22 05/26/23 History Mcg = 1000 Iu)] Morphine Sulfate ER [Ms Contin] 15 mg PO BID 03/30/22 05/26/23 History Multivit with Calcium,Iron,Min 1 each PO DAILY 03/30/22 05/26/23 History [Women's Multivitamin] Gabapentin 600 mg PO BID 05/26/23 05/26/23 History Nf-Vitamin E Dose Unk 1 tab PO DAILY 05/26/23 05/26/23 History Omeprazole [PriLOSEC] 20 mg PO AC-BID 05/26/23 05/26/23 History hydroCHLOROthiazide 25 mg PO DAILY 05/26/23 05/26/23 History oxyCODONE HCL/ACETAMINOPHEN 1 tab PO QID 05/26/23 05/26/23 History [oxyCODONE HCL/ACETAMINOPHEN 7.5-325] predniSONE 1 mg PO DIRECTED 05/27/23 05/27/23 History Allergies Allergy/AdvReac Type Severity Reaction Status Date / Time Penicillins Allergy Rash/Hives Verified 05/26/23 09:31 Surgical - Exam - General well developed, well nourished, no distress - Respiratory normal respiratory effort - Abdomen Abdomen: soft, non tender, no guarding, no rigid, no rebound - Psychiatric oriented to time, oriented to person, oriented to place, speech is normal, memory intact Results - Imaging CT scan - abdomen: report reviewed, image reviewed Assessment and Plan (1) Renal calculus Status: Acute Code(s): N20.0 - CALCULUS OF KIDNEY SNOMED Code(s): 68430797 Plan: Cystoscopy, bilateral ureteroscopy with Holmium laser lithotripsy and stone basketing, bilateral ureteral stent insertion. The patient is aware of potential risks, which include anesthesia, infection, inability to remove all calculi, ureteral injury, and persistent pain.
[~2023-06-02] MED LIST changes: +GLYCOPYRROLATE 0.2 MG/ML 2 ML VIAL ONE; +HYDROCORTISONE SUCCINATE 100 MG/2 ML VIAL IVP ONE; +HYDROmorphone 0.5 MG/0.5 ML SYRINGE IVP ONE; +LACTATED RINGERS 1,000 ML IV ONE; -LEVOFLOXACIN 500MG-D5W PMX 500 MG in DEXTROSE/WATER 1 100ML.BAG IVPB PRN; +LIDOCAINE 1% (10MG/ML) FOR IV START INTRADERMA ONE; +LIDOCAINE 2% INJ 20 MG/ML (2 ML VIAL) ONE; +MIDAZOLAM 2 MG/2 ML VIAL ONE; +NEOSTIGMINE 1 MG/ML 10 ML VIAL ONE; +ONDANSETRON 4 MG/2 ML VIAL ONE; +PROPOFOL 10 MG/ML 20 ML VIAL IV ONE; +ROCURONIUM 10 MG/ML (5 ML VIAL) IV ONE; +SUCCINYLCHOLINE CHLORIDE 200 MG/10 ML VIAL IV ONE; +fentaNYL (PF) 50 MCG/ML 2 ML AMP ONE
--- NOTE | 2023-06-02 07:18 | XR ---
EXAMINATION TYPE: XR KUB DATE OF EXAM: 06/02/2023 INDICATION: Patient age:Female; 67 years old; Reason for study: Kidney stone; COMPARISON: 05/02/2023, 05/11/2023 TECHNIQUE: KUB of the abdomen was obtained with the radiographs. FINDINGS: Similar left renal calculi project over the kidney. The right renal calculus seen on prior is not visualized due to overlapping bowel. The osseous structures are intact. Large amount stool and gas seen within the mid abdomen bowel. Right abdominal surgical clips and suture seen in the upper middle abdomen. Pelvic phleboliths. Multilevel degeneration changes throughout the spine with osteophyte formation and facet joint arthro zoraida and disc space narrowing. Bilateral hip mild osteoarthrosis. Left sacral alar benign bone islan d. IMPRESSION: Similar left renal calculi with nonvisualization of previously seen right renal calculi likely relate d to overlying stool.
[2023-06-02 07:53] LABS: Glucose,Whole Blood 105 mg/dL (70-110)
--- NOTE | 2023-06-02 11:11 | FL ---
Intraoperative/procedural fluoroscopic services were provided for bilateral stone laser lithotripsy. Total fluoroscopy time is 19.5 seconds with a total of 5 submitted images to PACS. Total DAP 10.545 G ycm2. Please see the operative note for further details.
[2023-06-02 11:15] VITALS: TEMP 98
[2023-06-02 13:20] VITALS: BP 153/82; PULSE 76; RESP 16
--- NOTE | 2023-06-02 13:54 | P.OP ---
Date of Procedure: 06/02/23 Preoperative Diagnosis: Bilateral renal calculi Postoperative Diagnosis: Bilateral renal calculi, left ureteral calculus Procedure(s) Performed: Cystoscopy, bilateral ureteroscopy with Holmium laser lithotripsy and stone basketing, bilateral ureteral stent insertion Anesthesia: JOB Surgeon: Shukri Velasco Estimated Blood Loss (ml): 5 IV fluids (ml): 700 Pathology: other (Calculus fragments, sent for chemical analysis) Condition: stable Disposition: PACU Indications for Procedure: The patient is a 67-year-old white female with a history of recurrent urolithiasis. She was found in early 2021 to have a 7 mm left distal ureteral calculus, a left lower pole renal calculus, and right renal calculi including one within the right renal pelvis. She underwent bilateral ureteral stent insertion on 11/26/2021. She then underwent ureteroscopic removal of calculi on 12/17/2021 and again on 04/01/2022. At the time of the latter procedure, she was found to have multiple tiny, round calculi within a right mid pole calyx. She now presents with right flank and left groin pain. She has a history of hyperoxaluria and hypocitraturia, for which she takes potassiums citrate and hydrochlorothiazide. Recent CT scan shows bilateral renal calculi. Operative Findings: Multiple tiny, round calculi within the right mid pole and right lower pole calyx. Multiple left lower pole renal calculi, some submucosal. Large calculus removed from left distal ureter. Description of Procedure: The patient was taken to the operating room and placed in the dorsolithotomy position, with legs supported in Tate stirrups. The external genitalia was prepped and draped sterilely. The 30 lens was used to introduce the 21-Comoran Sage cystoscopic sheath through the urethra and into the bladder under direct vision. The bladder was examined in its entirety. Both ureteral orifices were normal anatomic location and configuration. No tumors or foreign bodies were seen. A 0.038 inch Glidewire was passed through the cystoscope. The right ureteral orifice was cannulated, and the Glidewire was advanced up to the renal pelvis. The cystoscope was removed, and an 11/13-Comoran ureteral access catheter was passed over the wire, up to the proximal ureter. The [employer] flexible ureteroscope was then passed through the ureteral access catheter sheath, up to the right renal pelvis. Each calyx was examined. Within a mid pole calyx and a lower pole calyx were numerous tiny, round calculi. They were too small to basket. The 272 micron Holmium laser probe was passed through the ureteroscope, and lithotripsy was performed within each group of calculi utilizing a popcorning mode. This reduced these calculi to predominantly dust, which has a higher likelihood of passing. Each of these calyces were also irrigated to flush the calculi fragments out of the calyx. Once this was completed, pullout ureteroscopy was performed, showing no evidence of right ureteral trauma. The cystoscope was replaced into the bladder, and the Glidewire was passed up to the left renal pelvis. The ureteral access catheter was passed over the wire, up to the left proximal ureter. The flexible ureteroscope was passed through the ureteral access catheter sheath and up to the left renal pelvis. Each calyx was examined. The upper pole calculus seen recently on CT scan was not present. Numerous calculi were seen within two lower pole calyces, and one mid pole calyx. The majority of these were removed via Stone basketing using a 0 tip basket. One of these calculi was too large to pass through the ureteral access catheter sheath, and therefore the sheath was removed along with the ureteroscope. It was possible to pass the ureteroscope into the left ureteral orifice and advance it without difficulty. A larger calculus was seen within the left distal ureter measuring a 10 mm in size. This was removed utilizing a combination of laser lithotripsy and stone basketing. Attention was then paid once again to the left kidney, where ultimately each calculus was either removed via stone basketing or lasered, leaving no residual calculus fragments exceeding 1 mm in size. No calculi were seen on fluoroscopy. Pullout ureteroscopy showed no evidence of ureteral trauma. The cystoscope was replaced into the bladder. The Glidewire was passed up to the right renal pelvis, and a 24 cm, 4.8-Comoran double-J ureteral stent was placed over the wire. Proper stent positioning was verified fluoroscopically and endoscopically. The same was repeated on the left. The bladder was emptied and the cystoscope removed. The patient tolerated the procedure well and was taken to the recovery room in stable condition. [facility] Report: Procedure Acuity: Semi-Urgent Stone Size and Location: 9 mm, left distal ureter Ureteral Dilation: No Ureteral Access Sheath Used: Yes Stone Sent for Analysis: Yes All Stones/Fragments Were Removed with a Basket: No Complications: No Preoperative Antibiotics Given: Yes Stent Placed: Yes If Stent Placed, Was String Left Attached: No If Stent Placed, When is it to be Removed: 2 weeks Discharge Medications: None
== END | disposition home or self-care (01) ==
LOC: OR 06:56
PROVIDERS: ATTEND Urology
DX: N20.0 Calculus of kidney (principal); J45.909 Unspecified asthma, uncomplicated; K21.9 Gastro-esophageal reflux disease without esophagitis; E78.5 Hyperlipidemia, unspecified; F17.210 Nicotine dependence, cigarettes, uncomplicated; G47.30 Sleep apnea, unspecified; Z98.891 History of uterine scar from previous surgery; Z90.710 Acquired absence of both cervix and uterus; Z90.49 Acquired absence of other specified parts of digestive tract; Z96.653 Presence of artificial knee joint, bilateral; Z86.59 Personal history of other mental and behavioral disorders; Z79.890 Hormone replacement therapy; Z79.899 Other long term (current) drug therapy
CPT/HCPCS: 82365; 74018; 52356; C1769; J2250; J0330; J2710; J1720; J0690; J2405; J3010; J2704; J1170; J2001

== ENCOUNTER → 2023-07-06 | Outpatient (CLI) | payer MEDICARE ==
[2023-07-06 15:52] LABS: Anion Gap 8.4 mmol/L (4.00-12.00); Carbon Dioxide 31.6 mmol/L (21.6-31.8); Potassium 4.6 mmol/L (3.5-5.5)
== END | disposition home or self-care (01) ==
LOC: LABWHC1 10:02
PROVIDERS: ATTEND Urology
DX: R25.2 Cramp and spasm (principal); R82.991 Hypocitraturia
CPT/HCPCS: 36415; 80051

== ENCOUNTER → 2023-10-26 | Outpatient (CLI) | payer MEDICARE ==
--- NOTE | 2023-10-27 14:59 | MM ---
Reason for Exam: Screening (asymptomatic). Last mammogram was performed 1 year(s) and 1 month(s) ago. Patient History: Menarche at age 14. First Full-Term at age 23. Left ovary removed at age 48. Right ovary removed at age 48. Hysterectomy at age 48. Postmenopausal. Patient used Estrogen for 2 years. 1991, Benign Core Biopsy on the left side. Mother had ovarian cancer. Risk Values: Samaria 5 year model risk: 1.8%. NCI Lifetime model risk: 6.4%. Prior Study Comparison: 10/06/2020 Bilateral Screening Mammogram, [facility]. 10/07/2021 Bilateral Screening Mammogram, [facility]. 10/08/2022 Bilateral MG 3D screening mammo w/cad, [facility]. Tissue Density: The breast tissue is almost entirely fat. Findings: Analyzed By CAD. There is no suspicious group of microcalcifications or new suspicious mass. Overall Assessment: Negative, BI-RAD 1 Management: Screening Mammogram of both breasts in [address] [facility] will attempt to contact patient to return for supplemental views and ultrasound if indicated. Patient should continue monthly self-breast exams. A clinical breast exam by your physician is recommended on an annual basis. This exam should not preclude additional follow-up of suspicious palpable abnormalities. Note on Samaria scores and lifetime risk: 1. A Samaria score greater than 3% is considered moderate risk. If this is the case, consider specialist referral to assess eligibility for a risk reducing agent. 2. If overall lifetime risk for the development of breast cancer is 20% or higher, the patient may qualify for future screening with alternating mammogram and breast MRI. Electronically signed and approved by: Patrick Garcia DO
== END | disposition home or self-care (01) ==
LOC: RADMAMWWP 10:40
PROVIDERS: ATTEND Family Medicine
DX: Z12.31 Encounter for screening mammogram for malignant neoplasm of breast (principal); Z78.0 Asymptomatic menopausal state
CPT/HCPCS: 77063; 77067

== ENCOUNTER → 2024-08-10 | Outpatient (CLI) | payer MEDICARE ==
--- NOTE | 2024-08-10 13:24 | MM ---
Reason for Exam: Clinical finding. Last screening mammogram was performed 9 month(s) ago. Patient History: Menarche at age 14. First Full-Term at age 23. Left ovary removed at age 48. Right ovary removed at age 48. Hysterectomy at age 48. Postmenopausal. Patient used Estrogen for 2 years. 1991, Benign Core Biopsy on the left side. Mother had ovarian cancer. Risk Values: Samaria 5 year model risk: 1.8%. NCI Lifetime model risk: 6.1%. Tissue Density: The breasts are almost entirely fatty. Findings: Analyzed By CAD. No finding to correlate with palpable abnormality. Overall Assessment: Incomplete: need additional imaging evaluation, BI-RAD 0 Management: Diagnostic Breast Ultrasound of the right breast. Results were given to the patient verbally at the time of exam. Patient should continue monthly self-breast exams. A clinical breast exam by your physician is recommended on an annual basis. This exam should not preclude additional follow-up of suspicious palpable abnormalities. Note on Samaria scores and lifetime risk: 1. A Samaria score greater than 3% is considered moderate risk. If this is the case, consider specialist referral to assess eligibility for a risk reducing agent. 2. If overall lifetime risk for the development of breast cancer is 20% or higher, the patient may qualify for future screening with alternating mammogram and breast MRI. [facility], , 08/10/2024 1:21 PM. Electronically signed and approved by: Patrick Garcia DO
--- NOTE | 2024-08-10 13:42 | USB ---
Reason for Exam: Clinical finding. Patient History: Menarche at age 14. First Full-Term at age 23. Left ovary removed at age 48. Right ovary removed at age 48. Hysterectomy at age 48. Postmenopausal. Patient used Estrogen for 2 years. 1991, Benign Core Biopsy on the left side. Mother had ovarian cancer. Risk Values: Samaria 5 year model risk: 1.8%. NCI Lifetime model risk: 6.1%. Technique: Method: Targeted. Prior Study Comparison: 10/07/2021 Bilateral Screening Mammogram, [facility]. 10/08/2022 Bilateral MG 3D screening mammo w/cad, [facility]. 10/26/2023 Bilateral MG 3D screening mammo w/cad, [facility]. Findings: The medial section of the breast of the right breast, the axilla of the right breast and the retroareolar of the right breast were scanned. Technique utilized:US breast limited RT Image; Ultrasound imaging of: Area of concern, retroareolar region and axilla. No evidence for organizing fluid collection or mass. No finding to correlate with palpable abnormality. Overall Assessment: Negative, BI-RAD 1 Management: Screening Mammogram of both breasts in 1 year. A clinical breast exam by your physician is recommended on an annual basis and results should be correlated with mammographic findings. This exam should not preclude additional follow-up of suspicious palpable abnormalities. Results were given to the patient verbally at the time of exam. [facility], , 08/10/2024 1:39 PM. Electronically signed and approved by: Patrick Garcia DO
== END | disposition home or self-care (01) ==
LOC: RADMAMWWP 12:56
PROVIDERS: ATTEND Family Medicine
DX: N63.10 Unspecified lump in the right breast, unspecified quadrant
CPT/HCPCS: 77062; 77066

== ENCOUNTER → 2024-09-13 | Outpatient (CLI) | payer MEDICARE ==
--- NOTE | 2024-09-13 12:51 | XR ---
KUB. HISTORY: Abdominal pain. COMPARISON: 06/02/2023 TECHNIQUE: 2 supine views of the abdomen were obtained. FINDINGS: The bowel gas pattern is nonspecific and there is no evidence of obstruction. There is a large amount of stool within the ascending, transverse and descending colon but not within the rectum. No suspicious abdominal or pelvic calcifications are seen. There are marked degenerative changes in the lumbar spine. IMPRESSION: IMPRESSION: 1. Large amount stool within the colon. 2. No evidence of bowel obstruction. Nonspecific abdomen without evidence of free air or obstruction. [facility], , 09/13/2024 12:49 PM
== END ==
LOC: RADXRMAIN 11:05
PROVIDERS: ATTEND Urology
DX: N20.0 Calculus of kidney (principal); R19.5 Other fecal abnormalities
CPT/HCPCS: 74018

== ENCOUNTER → 2024-11-20 | Outpatient (CLI) | payer MEDICARE ==
--- NOTE | 2024-11-20 11:25 | CT ---
EXAMINATION TYPE: CT abdomen pelvis wo con CT DLP: 1002 mGycm, Automated exposure control for dose reduction was used. DATE OF EXAM: 11/20/2024 9:56 AM COMPARISON: KUB radiograph 09/13/2024, CT abdomen and pelvis 05/11/2023 CLINICAL INDICATION:Female, 68 years old with history of N20.0 CALCULUS OF KIDNEY; KIDNEY STONES TECHNIQUE: Standard CT of the abdomen and pelvis without IV or oral contrast. Lack of IV or oral co ntrast limits evaluation of solid and hollow organ viscera. Coronal and sagittal reformats were perfo rmed. FINDINGS: LOWER CHEST: Unremarkable ABDOMEN LIVER: Diffusely hypoattenuating parenchyma. Enlarged measuring 18.7 cm in CC dimension. GALLBLADDER AND BILE DUCTS: The gallbladder is surgically absent. No biliary ductal dilatation. PANCREAS: Unremarkable noncontrast appearance. SPLEEN: Unremarkable noncontrast appearance. ADRENAL GLANDS: Unremarkable noncontrast appearance. KIDNEYS AND URETERS: No evidence of hydronephrosis. No right renal calculi. Approximately 5 nonobstru ctive left renal calculi with largest in the lower pole measuring up to 5 mm. The other measure close to 2 mm. No ureteral calculus identified. PELVIS BLADDER: Incompletely distended but grossly unremarkable. REPRODUCTIVE: The uterus is surgically absent. ABDOMEN & PELVIS STOMACH AND BOWEL: Postsurgical changes from Azul-en-Y gastric bypass redemonstrated one small area.R edundant sigmoid colon. No focal bowel wall thickening or surrounding inflammatory changes. Mild amou nt of stool is present throughout the colon. No evidence of bowel obstruction. PERITONEUM: No evidence of pneumoperitoneum or free fluid. VASCULATURE: No evidence of aortic aneurysm. Couple pelvic phleboliths. MUSCULOSKELETAL: No acute osseous abnormalities. Dextrocurvature of the thoracolumbar spine. Multilev el degenerative disc disease. [facility] of the lower thoracic spine. LYMPH NODES: No gross evidence for lymphadenopathy. SOFT TISSUE/ABDOMINAL WALL: Small fat filled umbilical hernia. IMPRESSION: 1. No evidence for obstructive uropathy. 2. Few nonobstructive left renal calculi. 3. Mild hepatomegaly with diffuse fatty infiltration. 4. Post surgical changes from Azul-en-Y gastric bypass with small hiatal hernia. [facility], , 11/20/2024 11:23 AM
== END | disposition home or self-care (01) ==
LOC: RADCTMAIN 09:41
PROVIDERS: ATTEND Urology
DX: N20.0 Calculus of kidney (principal); R16.0 Hepatomegaly, not elsewhere classified; K76.0 Fatty (change of) liver, not elsewhere classified; K44.9 Diaphragmatic hernia without obstruction or gangrene; Z98.84 Bariatric surgery status
CPT/HCPCS: 74176

== ENCOUNTER → 2025-04-10 | Outpatient (CLI) | payer MEDICARE ==
--- NOTE | 2025-04-10 11:36 | XR ---
EXAMINATION TYPE: XR tibia fibula RT DATE OF EXAM: 04/10/2025 11:03 AM COMPARISON: None CLINICAL INDICATION: Female, 69 years old with history of M79.89 soft tissue disorder; PHH, pain TECHNIQUE: XR tibia fibula RT; examined in AP and lateral projections. FINDINGS: Acute fracture of the proximal fibula without significant displacement. Total knee arthropl asty appears intact. IMPRESSION: Proximal fibular fracture without significant displacement. The tibia appears intact. [facility], , 04/10/2025 11:34 AM
--- NOTE | 2025-04-10 11:43 | US ---
EXAMINATION TYPE: US venous doppler duplex LE RT DATE OF EXAM: 04/10/2025 11:23 AM COMPARISON: US 2020 CLINICAL INDICATION: Female, 69 years old with history of M79.89 SOFT TISSUE DISORDER, RT LEG SWELLIN G; No hx of DVT. Patient does not take aspirin. Swelling x 1 week. TECHNIQUE: The lower extremity deep venous system is examined utilizing real time linear array sonog kg with graded compression, color doppler sonography, and spectral doppler. SIDE PERFORMED: Right FINDINGS: VESSELS IMAGED: Common Femoral Vein Deep Femoral Vein Greater Saphenous Vein * Femoral Vein Popliteal Vein Small Saphenous Vein * Proximal Calf Veins (* superficial vessels) Right Leg: No evidence of DVT, slightly limited exam. PTVs and peroneal veins were not visualized. *No abnormality seen by ultrasound at right anterior-lateral king- patient's area of concern. IMPRESSION: 1. No evidence for deep vein no abnormal thrombosis. 2. No evidence for abnormality involving the patient's area of concern on the anterior lateral king. [facility], , 04/10/2025 11:40 AM
== END | disposition home or self-care (01) ==
LOC: RADXRMAIN 10:12
PROVIDERS: ATTEND Family Medicine
DX: S82.401A Unspecified fracture of shaft of right fibula, initial encounter for closed fracture (principal)

== ENCOUNTER 2025-05-01 15:04 | Emergency (ER) | payer MEDICARE ==
--- NOTE | 2025-05-01 16:23 | CT ---
EXAMINATION TYPE: CT brain shaun wo con DATE OF EXAM: 05/01/2025 COMPARISON: 09/20/2017 CLINICAL INDICATION: Female, 69 years old with history of fall hit head no loc +n/v; PHH, Fall hit h ead no loc,+n/v. TECHNIQUE: CT scan of the head and cervical spine are performed without contrast. CT DLP: 1320.[address] CTDI: mGy Automated exposure control for dose reduction was used. Findings: Head CT: Ventricles, basal cisterns and sulci over convexities within normal limits and there is no mass, mass effect or shift of midline structures. No abnormal density is seen throughout the brain parenchyma and there is no acute intra or extra-axia l hemorrhage. Posterior fossa including the brainstem, fourth ventricle and cerebellar pontine angles are grossly n ormal. The intraorbital contents appear normal and symmetric. Visualized paranasal sinuses are well aerated. CT cervical spine: Craniovertebral junction relationships and prevertebral soft tissues are normal. The cervical vertebral segments are normal in height and alignment and there is no fracture subluxati on. There is mild to moderate disc space narrowing and spondylosis at C4-5, C5-6 and C6-7 levels. The fac et joints are intact. There is mild to moderate degeneration of the uncovertebral joints in the lower cervical spine. There is no bony encroachment of the cervical canal or neural foramina. The paraspinal soft tissues unremarkable. IMPRESSION: 1. Head CT: No acute bleed or mass effect. 2. CT cervical spine: No acute trauma. Mild to moderate multilevel degenerative disc disease and oste oarthritic change of the uncovertebral joints from C4 through C7 [facility], , 05/01/2025 4:20 PM
--- NOTE | 2025-05-01 18:08 | ED ---
General Adult HPI - General Chief complaint: Fall Stated complaint: fell and hit head, vomiting and dizzy Time Seen by Provider: 05/01/25 17:51 Source: patient, RN notes reviewed Mode of arrival: ambulatory Limitations: no limitations - History of Present Illness Initial comments: Patient is a 69-year-old female present to the emergency department following fall. Incident occurred last night. Patient fell about 3 feet or so on the back porch. Patient did strike the back of her head and did lose consciousness. Since that time patient has been dizzy. Patient feels lightheaded. Patient has had some nausea. Patient also struck her left ribs and has has discomfort at that area. No dyspnea. No abdominal pain. - Related Data Home Medications Medication Instructions Recorded Confirmed Levothyroxine Sodium [Synthroid] 75 mcg PO QAM 04/03/14 06/02/23 Morphine Sulfate ER [Ms Contin] 30 mg PO BID 04/03/14 06/02/23 Montelukast [Singulair] 10 mg PO HS 06/07/17 06/02/23 Cyanocobalamin [Vitamin B-12 1,000 mcg SQ Q30D 06/13/18 06/02/23 Injection] tiZANidine HCL [Zanaflex] 4 mg PO BID PRN 07/04/18 06/02/23 Atorvastatin Calcium [Lipitor] 10 mg PO HS 11/25/21 06/02/23 Semaglutide [Ozempic] 1 mg SQ IVAN 11/25/21 06/02/23 Venlafaxine HCl [Effexor] 75 mg PO DAILY 11/25/21 06/02/23 Amitriptyline HCl [Elavil] 50 mg PO BID 03/30/22 06/02/23 Cholecalciferol [Vitamin D3 (25 25 mcg PO DAILY 03/30/22 06/02/23 Mcg = 1000 Iu)] Morphine Sulfate ER [Ms Contin] 15 mg PO BID 03/30/22 06/02/23 Multivit with Calcium,Iron,Min 1 each PO DAILY 03/30/22 06/02/23 [Women's Multivitamin] Gabapentin 600 mg PO BID 05/26/23 06/02/23 Nf-Vitamin E Dose Unk 1 tab PO DAILY 05/26/23 06/02/23 Omeprazole [PriLOSEC] 20 mg PO AC-BID 05/26/23 06/02/23 hydroCHLOROthiazide 25 mg PO DAILY 05/26/23 06/02/23 oxyCODONE HCL/ACETAMINOPHEN 1 tab PO QID 05/26/23 06/02/23 [oxyCODONE HCL/ACETAMINOPHEN 7.5-325] predniSONE 1 mg PO DIRECTED 05/27/23 06/02/23 Previous Rx's Medication Instructions Recorded Meclizine [Antivert] 25 mg PO TID PRN #12 tab 05/01/25 Metoclopramide HCl [Reglan] 10 mg PO Q6HR PRN #15 tablet 05/01/25 Allergies Allergy/AdvReac Type Severity Reaction Status Date / Time Penicillins Allergy Rash/Hives Verified 11/20/24 11:22 Review of Systems ROS Statement: Those systems with pertinent positive or pertinent negative responses have been documented in the HPI. ROS Other: All systems not noted in ROS Statement are negative. Constitutional: Denies: fever Eyes: Denies: eye pain ENT: Denies: ear pain Respiratory: Denies: dyspnea Cardiovascular: Reports: as per HPI Gastrointestinal: Reports: nausea. Denies: abdominal pain Musculoskeletal: Denies: back pain Neurological: Denies: weakness Past Medical History Past Medical History: Asthma, Diabetes Mellitus, Fibromyalgia, GERD/Reflux, Hyperlipidemia, Osteoarthritis (OA), Pneumonia, Rheumatoid Arthritis (RA), Sleep Apnea/CPAP/BIPAP, Thyroid Disorder Additional Past Medical History / Comment(s): kidney stones-iCU for 7 days due to sepsis from blocked kidney stone,, no cpap used(sleeps in recliner), hiatal hernia, constipation, fatty liver, anemia, History of Any Multi-Drug Resistant Organisms: None Reported Past Surgical History: Bariatric Surgery, Breast Surgery, Section, Cholecystectomy, Hysterectomy, Joint Replacement, Orthopedic Surgery, Uterine Ablation Additional Past Surgical History / Comment(s): venice ureteral stents & cystoscopy on 11-26-21, LT WRIST HAS PLATE/SCREWS, venice KNEE REPLACEMENT, HEMORROIDECTOMY, ROEX-N-Y, hemorrhoidectomy, cystoscopy removal of kidney stone, arthroscopy left knee, sx to repair broken femur/plate,-left breast lumpectomy, cystoscopy/rt ureteral stent placement, venice cataracts Past Anesthesia/Blood Transfusion Reactions: Previous Problems w/ Anesthesia Additional Past Anesthesia/Blood Transfusion Reaction / Comment(s): STATES WITH PRIOR KNEE SURGERY HAD ISSUE POST OP R/T SLEEP APNEA WHERE O2 LEVEL WAS LOW-WAS IN ICU 2009.-NO PROBLEMS WITH KIDNEY STONE PROCEDURE ON 11-26-21 Past Psychological History: Depression Smoking Status: Former smoker Past Alcohol Use History: None Reported Past Drug Use History: None Reported - Past Family History Mother Family Medical History: Cancer Additional Family Medical History / Comment(s): UTERINE General Exam Limitations: no limitations General appearance: alert, in no apparent distress Head exam: Present: atraumatic Eye exam: Present: normal appearance, PERRL, EOMI Neck exam: Present: normal inspection. Absent: tenderness Respiratory exam: Present: normal lung sounds bilaterally, chest wall tenderness (Left lateral ribs) Cardiovascular Exam: Present: regular rate, normal rhythm GI/Abdominal exam: Present: soft. Absent: tenderness Extremities exam: Present: normal inspection, full ROM. Absent: tenderness Back exam: Present: normal inspection. Absent: vertebral tenderness Neurological exam: Present: alert, oriented X3, CN II-XII intact. Absent: motor sensory deficit Expanded Neurological exam: Present: protecting the airway Speech: Present: fluid speech Cranial nerves: EOM's Intact: Normal Motor strength exam: RUE: 5, LUE: 5, RLE: 5, LLE: 5 Eye Response: (4) open spontaneously Motor Response: (6) obeys commands Verbal Response: (5) oriented Psychiatric exam: Present: normal affect, normal mood Skin exam: Present: normal color Course Vital Signs 05/01/25 15:33 Temperature 98.3 F Pulse Rate 86 Respiratory 16 Rate Blood Pressure 161/78 O2 Sat by Pulse 98 Oximetry Medical Decision Making - Medical Decision Making Was pt. sent in by a medical professional or institution (, PA, TRACK VEHICLE REPAIRER, urgent care, hospital, or intermediate...) When possible be specific @ -No Did you speak to anyone other than the patient for history (EMS, parent, family, police, friend...)? What history was obtained from this source @ -No Did you review nursing and triage notes (agree or disagree)? Why? @ -I reviewed and agree with nursing and triage notes Were old charts reviewed (outside hosp., previous admission, EMS record, old EKG, old radiological studies, urgent care reports/EKG's, intermediate records)? Report findings @ -No old charts were reviewed Differential Diagnosis (chest pain, altered mental status, abdominal pain women, abdominal pain men, vaginal bleeding, weakness, fever, dyspnea, syncope, headache, dizziness, GI bleed, back pain, seizure, CVA, palpatations, mental health, musculoskeletal)? @ -Differential Headache: Migraine, tension, cluster, carbon monoxide, central venous thrombosis, pension karma temporal arteritis, acute closure glaucoma, intercranial hemorrhage, mastoiditis, sinusitis, head injury, this is not meant to be an all-inclusive list. EKG interpreted by me (3pts min.). @ -As above X-rays interpreted by me (1pt min.). @ -Pelvis x-ray shows no acute process including right hip. Left rib x-rays I do have suspicion for fourth rib fracture CT interpreted by me (1pt min.). @ -CT brain and cervical spine without acute abnormality U/S interpreted by me (1pt. min.). @ -None done What testing was considered but not performed or refused? (CT, X-rays, U/S, labs)? Why? @ -None What meds were considered but not given or refused? Why? @ -None Did you discuss the management of the patient with other professionals (professionals i.e. , PA, TRACK VEHICLE REPAIRER, lab, RT, psych nurse, social services coordinator, head start director, teacher, commanding officer homicide squad, case planner)? Give summary @ -No Was smoking cessation discussed for >3mins.? @ -No Was critical care preformed (if so, how long)? @ -No Were there social determinants of health that impacted care today? How? (Homelessness, low income, unemployed, alcoholism, drug addiction, transportation, low edu. Level, literacy, decrease access to med. care, fdc, rehab)? @ -No Was there de-escalation of care discussed even if they declined (Discuss DNR or withdrawal of care, Hospice)? DNR status @ -No What co-morbidities impacted this encounter? (DM, HTN, Smoking, COPD, CAD, Cancer, CVA, ARF, Chemo, Hep., AIDS, mental health diagnosis, sleep apnea, morbid obesity)? @ -None Was patient admitted / discharged? Hospital course, mention meds given and route, prescriptions, significant lab abnormalities, going to OR and other pertinent info. @ -On reevaluation patient vomited her Antivert. Patient was provided this again. At 30 evaluation patient is feeling much better. Patient is updated on results and plan. Patient is comfortable with discharge home at this time. Patient states dizziness has resolved Undiagnosed new problem with uncertain prognosis? @ -No Drug Therapy requiring intensive monitoring for toxicity (Heparin, Nitro, Insulin, Cardizem)? @ -No Were any procedures done? @ -No Diagnosis/symptom? @ -Concussion, rib fracture Acute, or Chronic, or Acute on Chronic? @ -Acute, acute Uncomplicated (without systemic symptoms) or Complicated (systemic symptoms)? @ -Default Side effects of treatment? @ -No Exacerbation, Progression, or Severe Exacerbation? @ -No Poses a threat to life or bodily function? How? (Chest pain, [place], [place], pneumonia, PE, COPD, DKA, ARF, appy, cholecystitis, CVA, Diverticulitis, Homicidal, Suicidal, threat to staff... and all critical care pts) @ -No Disposition Clinical Impression: Concussion, Rib fracture Disposition: HOME SELF-CARE Condition: Stable Instructions (If sedation given, give patient instructions): Concussion (ED), Rib Fracture (ED) Additional Instructions: Prescription for dizziness medicine and nausea medicine sent to pharmacy. Please do follow-up with your primary care physician in the next day or 2 for recheck. Return for confusion, uncontrolled vomiting, weakness, difficulty breathing, worsening or changing symptoms or other concerns. Prescriptions: Meclizine [Antivert] 25 mg PO TID PRN #12 tab PRN Reason: dizziness Metoclopramide HCl [Reglan] 10 mg PO Q6HR PRN #15 tablet PRN Reason: Nausea Is patient prescribed a controlled substance at d/c from ED?: No Referrals: Katelyn Rai MD [Primary Care Provider] - 1-2 days Time of Disposition: 21:13
[2025-05-01] MEDS: METOCLOPRAMIDE 5 MG/ML 2 ML VIAL IM STA (18:16)
[2025-05-01] MEDS: MECLIZINE 12.5 MG TAB PO STA ×2 (18:17→20:04)
--- NOTE | 2025-05-01 19:04 | XR ---
EXAMINATION TYPE: XR Hip RT and AP Pelvis DATE OF EXAM: 05/01/2025 6:56 PM COMPARISON: CLINICAL INDICATION: Female, 69 years old with history of fall; PHH, pain TECHNIQUE: XR Hip RT and AP Pelvis; hip was examined in the frontal and lateral projections and a AP pelvis. FINDINGS: No evidence for acute process, joint dislocation or significant soft tissue swelling. Osteo phyte formation of the superior acetabulum of the hip. There is mild joint space narrowing. IMPRESSION: 1. No evidence for acute process. 2. Mild hip osteoarthrosis. [facility], , 05/01/2025 7:02 PM
--- NOTE | 2025-05-01 19:06 | XR ---
EXAMINATION TYPE: XR ribs LT w pa chest xray DATE OF EXAM: 05/01/2025 6:56 PM COMPARISON: 03/23/2022 CLINICAL INDICATION: Female, 69 years old with history of fall; PHH, pain TECHNIQUE: XR ribs LT w pa chest xray; Frontal and oblique views of the ribs with frontal chest radio graph. FINDINGS: The ribs have a normal appearance. No evidence of fracture. Overall, the lungs are clear. The cardiac silhouette is normal in size. The remaining osseous structures are intact. Multilevel degeneration changes throughout the spine. Mild degeneration changes of the left shoulder. IMPRESSION: No acute osseous pathology. [facility], , 05/01/2025 7:04 PM
[2025-05-01] MEDS: HYDROmorphone 1 MG/ML 1 ML SYRINGE IM STA (20:03)
[2025-05-01] MEDS: ACET/COD 300 MG/30 MG STARTER PACK 6 TAB BTL PO STA (21:24)
[2025-05-01 21:27] VITALS: BP 151/78; PULSE 79; RESP 18; TEMP 98.1
== END 2025-05-01 21:55 | disposition home or self-care (01) ==
LOC: EC 15:04
DX: S06.0XAA Concussion with loss of consciousness status unknown, initial encounter (principal); S22.32XA Fracture of one rib, left side, initial encounter for closed fracture; Z87.891 Personal history of nicotine dependence; Z88.0 Allergy status to penicillin; W01.198A Fall on same level from slipping, tripping and stumbling with subsequent striking against other object, initial encounter; R40.2410 Glasgow coma scale score 13-15, unspecified time
CPT/HCPCS: 71101; 73502; 72125; 70450; 99284; 96372 ×2; J2765; J1171

== ENCOUNTER → 2025-05-23 | Outpatient (CLI) | payer MEDICARE ==
[2025-05-23 13:06] LABS: Basophils # (A) 0.03 10*3/uL (0.00-0.10); Basophils % (A) 0.6 %; Eosinophils # (A) 0.07 10*3/uL (0.04-0.35); Eosinophils % (A) 1.3 %; HCT 40.7 % (37.2-46.3); HGB 12.8 g/dL (12.0-15.0); Lymphocytes # (A) 0.64 10*3/uL (0.90-5.00); Lymphocytes % (A) 11.8 %; MCH 28.8 pg (27.0-32.0); MCHC 31.4 g/dL (32.0-37.0); MCV 91.7 fL (80.0-97.0); Monocytes # (A) 0.27 10*3/uL (0.20-1.00); Monocytes % (A) 5.0 %; Neutrophils # (A) 4.41 10*3/uL (1.80-7.70); Neutrophils % (A) 80.9 %; Platelet Count 195 10*3/uL (140-440); RBC 4.44 10*6/uL (4.10-5.20); RDW 14.7 % (11.5-14.5); WBC 5.44 10*3/uL (4.50-10.00)
[2025-05-23 13:25] LABS: ALT 20 U/L (4-34); AST 35 U/L (14-36); African American GFR (CKD) 75 (>60 ml/min/1.73 sqM); Albumin 3.8 g/dL (3.5-5.0); Alkaline Phosphatase 213 U/L (38-126); Anion Gap 5 mmol/L; Blood Urea Nitrogen 25 mg/dL (7-17); Calcium 9.3 mg/dL (8.4-10.2); Carbon Dioxide 37 mmol/L (22-30); Chloride 96 mmol/L (98-107); Glucose 138 mg/dL (74-99); Non-African American GFR(CKD) 65 (>60 ml/min/1.73 sqM); Potassium 4.3 mmol/L (3.5-5.1); Sodium 138 mmol/L (137-145); Total Protein 6.4 g/dL (6.3-8.2)
--- NOTE | 2025-05-23 19:43 | BD ---
EXAMINATION TYPE: Axial Bone Density DATE OF EXAM: 05/23/2025 CLINICAL HISTORY: 69 years old Female. ICD-10 CODE: Z78.0ASYMP JORDAN , Additional History: Height: 62.25 Weight: 237.6 FRAX RISK QUESTIONS: Alcohol (3 or more units per day): no Family History (Parent hip fracture): no Glucocorticoids (More than 3mos): no (Ex: prednisone, prednisolone, methylprednisolone, dexamethasone, and hydrocortisone). History of Fracture in Adulthood: yes Secondary Osteoporosis: 1. Type 1 Diabetes: no 2. Hyperthyroidism: no 3. Menopause before 45: yes 4. Malnutrition: no 5. Chronic liver disease: no Rheumatoid Arthritis: yes Current Tobacco Use: no RISK FACTORS HISTORY OF: Hip Fracture (Right/Left): no Spine Fracture: no History of Wrist Fracture: Lt Wrist When: age 56 Surgery to Spine/Hip(right/left)/Wrist (right/left): Lt Wrist, Lt Femur age 59 MEDICATIONS: Thyroid Medications: Levothyroxine How Long: past 25 years Osteoporosis Medications: no EXAM MEASUREMENTS: Bone mineral densitometry was performed using the Minimally invasive devices System. Bone mineral density as measured about the Lumbar spine is: ----- L1-L4(G/cm2): 1.205 T Score Values are as follows: ----- L1: -1.8 ----- L2: -0.9 ----- L3: 1.1 ----- L4: 1.6 ----- L1-L4: 0.2 Z Score Values are as follows: ----- L1: `-1.3 ----- L2: -0.4 ----- L3: 1.6 ----- L4: 2.1 ----- L1-L4: 0.7 Bone mineral density has: increased 8.3 % since study of: 12/30/2022 Bone mineral density about the R hip (g/cm2): 0.703 Bone mineral density about the L hip (g/cm2): 0.856 T Score values are as follows: -----R Neck: -2.0 -----L Neck: -1.3 -----R Total: -2.4 -----L Total: -1.2 Z Score values are as follows: -----R Neck: -1.1 -----L Neck: -0.5 -----R Total: -1.9 -----L Total: -0.7 Bone mineral density has: increased 1.7 % since study of: 12/30/2022 FRAX%s: The graph provided illustrates a16.0 % chance for a major osteoporotic fx and a 2.6% chance f or the hips probability for fx in 10 years time. IMPRESSION: Osteopenia (T Score between -2.5 and -1). There is slightly increased risk of fracture and the patient may be considered for treatment. Re-Screen 2-5 years. NOTE: T-SCORE=SD OF THE YOUNG ADULT MEAN. [facility], , 05/23/2025 7:40 PM
== END | disposition home or self-care (01) ==
LOC: RADBDWWP 12:59
PROVIDERS: ATTEND Family Medicine
DX: M85.89 Other specified disorders of bone density and structure, multiple sites (principal); D72.829 Elevated white blood cell count, unspecified; E87.5 Hyperkalemia; Z78.0 Asymptomatic menopausal state
CPT/HCPCS: 77080; 80053; 85025